=== PATIENT | male | born 1945 | race Caucasian/White ===

== ENCOUNTER 2017-03-10 16:45 | Emergency (ER) | payer MEDICARE, OTHER ==
[~2017-03-10] VITALS: Ht 167.6 cm; Wt 85.0 kg
[~2017-03-10 16:45] MED LIST: BACT800T5 PO; PERCOCET PO
[2017-03-10] MEDS ORDERED: ALEN70TA39 PO (16:59)
[2017-03-10] MEDS ORDERED: BREO1INH INH (16:59)
[2017-03-10] MEDS ORDERED: ATOR40TA75 PO (16:59)
[2017-03-10] MEDS ORDERED: ALBU17IN2 INH (16:59)
[2017-03-10] MEDS ORDERED: CARD240C5 PO (16:59)
[2017-03-10] MEDS ORDERED: AMLO10TA2 PO (16:59)
[2017-03-10] MEDS ORDERED: ASPI325T28 PO (16:59)
[2017-03-10] MEDS ORDERED: VITA-121 PO (16:59)
[2017-03-10] MEDS ORDERED: CALC600T31 PO (16:59)
[2017-03-10] MEDS ORDERED: IPRATROPIUM 0.5MG/ALBUTEROL 2.5MG INH SOL UD 3ML (DUONEB)(J7620) NEB ONE (17:15)
[2017-03-10 17:29] LABS: BASO # 0.1 K/mm3 (0.0-0.2); BASO % 0.8 % (0.0-1.0); EOS # 0.2 K/mm3 (0.0-0.50); EOS % 1.8 % (0.0-3.0); LARGE UNSTAINED CELL # 0.1 K/mm3 (0.0-0.4); LARGE UNSTAINED CELL % 1.7 % (0.0-4.0); LYMPH # 0.7 K/mm3 (1.5-4.5); LYMPH % 8.6 % (24.0-44.0); MEAN CORPUSCULAR HEMOGLOBIN 32.6 pg (27.0-33.0); MEAN CORPUSCULAR HGB CONC 34.5 g/dl (32.0-36.5); MEAN CORPUSCULAR VOLUME 94.5 fl (80.0-96.0); MONO # 0.5 K/mm3 (0.0-0.8); MONO % 6.1 % (0.0-5.0); NEUTROPHILS # 6.7 K/mm3 (1.8-7.7); NEUTROPHILS % 80.9 % (36.0-66.0); PLATELET COUNT, AUTOMATED 230 k/mm3 (150-450); RED CELL DISTRIBUTION WIDTH 13.4 % (11.5-14.5); WHITE BLOOD COUNT 8.3 K/mm3 (4.0-10.0)
[2017-03-10 17:40] LABS: ANION GAP 8 MEQ/L (8-16); BLOOD UREA NITROGEN 20 MG/DL (7-18); CALCIUM LEVEL 8.7 MG/DL (8.8-10.2); CARBON DIOXIDE LEVEL 25 MEQ/L (21-32); CHLORIDE LEVEL 112 MEQ/L (98-107); CREATININE FOR GFR 0.98 MG/DL (0.70-1.30); GLOMERULAR FILTRATION RATE > 60.0 (>42); GLUCOSE, FASTING 105 MG/DL (83-110); POTASSIUM SERUM 4.5 MEQ/L (3.5-5.1); SODIUM LEVEL 145 MEQ/L (136-145)
--- NOTE | 2017-03-10 17:44 | REP ---
Clinical: Altered mental status. Cerebrovascular accident. Comparison: MRI dated 03/12/2016 . Findings: Age-related atrophy and microvascular ischemic changes are appreciated. The ventricles and sulci are symmetric. Lopez-white differentiation is maintained. There is no evidence for acute intracranial hemorrhage, mass/mass effect, pathology or infarction. No extra-axial fluid collection. Calvarium is intact. Paranasal sinuses and mastoid air cells are clear. Impression: Age related atrophy and microvascular ischemic changes. No acute intracranial hemorrhage, infarction, or mass/mass effect. Signed by Elvin Amato MD 03/10/2017 05:35 P
--- NOTE | 2017-03-10 17:44 | REP ---
Clinical: Altered mental status. Cerebrovascular accident . Comparison: 02/27/2016 . Findings: The mediastinum and cardiac silhouette are stable and within normal limits for portable technique. The lung rice are clear without acute consolidation, effusion, or pneumothorax. Skeletal structures are intact. Impression: No acute cardiopulmonary process appreciated. Signed by Elvin Amato MD 03/10/2017 05:36 P
[2017-03-10 17:47] LABS: INR 0.87
[2017-03-10] MEDS ORDERED: ISOVUE-370 76% 100ML VIAL (Q9967) As Ordered ONE (17:53)
--- NOTE | 2017-03-10 18:33 | ECGEPIP ---
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
[2017-03-10] MEDS ORDERED: ONDANSETRON 4MG/2ML VIAL (J2405) IV ONE (19:00)
[2017-03-10] MEDS ORDERED: NS 500 ML IV ONE (19:00)
--- NOTE | 2017-03-10 19:10 | REPUSA ---
HISTORY: NO PRIORS - EVALUATE FOR POSTERIOR CIRCULATION, LEFT LEG CEREBELLAR DIFF. TECHNIQUE: CTA protocol of brain with intravenous contrast. DLP= 375.4 mGy-cm. FINDINGS: The examination demonstrates normal contrast patency of bilateral intracranial vertebral ar teries, basilar artery, bilateral posterior cerebral arteries, bilateral intracranial internal caroti d arteries, anterior cerebral arteries, middle cerebral arteries, and [place] vessels, with no evidence of vascular occlusion, stenosis, aneurysm, vasculitis, or arteriovenous malformation seen . There is no evidence of intracranial hemorrhage, mass lesion, or infarct seen. IMPRESSION: Negative CTA brain examination.
--- NOTE | 2017-03-10 19:20 | REPUSA ---
HISTORY: NO PRIORS - EVALUATE FOR POSTERIOR CIRCULATION, LEFT LEG CEREBELLAR DIFF. TECHNIQUE: CTA protocol for contrast enhanced evaluation of the carotid and vertebral arteries in the neck. DLP= 375.4 mGy-cm. FINDINGS: The examination demonstrates contrast opacification of the thoracic aortic arch and proxima l great vessels through the right and left common carotid arteries, internal and external carotid art eries, and bilateral vertebral arteries. There are multiple calcified plaques identified in all vasc ular structures, greatest at the left carotid bifurcation resulting in estimated 30-50% stenosis at t he origin of the left internal carotid artery, and also at the right carotid bifurcation with estimat ed 30% stenosis. No ulcerating plaque lesion is seen. There is no significant stenosis seen in the vertebral arteries. CT examination of the neck demonstrates normal airway. Degenerative bony changes are noted. No soft tissue mass lesions are seen. IMPRESSION: 1. No evidence of arterial vascular occlusion or aneurysm or arterial venous malformatio n seen in the neck. 2. Multiple calcified plaque lesions seen in carotid and vertebral arteries bilaterally and in the p roximal subclavian arteries. There is estimated 30-50% stenosis at the origin of the left internal c arotid artery and 30% stenosis at the origin of the right internal carotid artery, with no ulcerating plaque lesions id entified. There is no significant stenosis or occlusion seen in the vertebral or subclavian arteries . 3. Degenerative changes noted in the cervical spine with no soft tissue mass lesions or abnormal flu id collections seen in the neck. Clinical correlation and followup imaging may be warranted as clinically indicated.
[2017-03-10 19:58] VITALS: BP 163/76
== END 2017-03-10 20:00 | disposition short-term general hospital (02) ==
LOC: EDBD 16:45 → M ED 16:45
DX: R53.1 Weakness (principal); R11.0 Nausea; I25.2 Old myocardial infarction; J44.9 Chronic obstructive pulmonary disease, unspecified; I10 Essential (primary) hypertension; E78.00 Pure hypercholesterolemia, unspecified; Z85.528 Personal history of other malignant neoplasm of kidney
CPT/HCPCS: 70450; 70496; 70498; 71010; 80048; 82550; 82553; 84484; 85025; 85610; 85730; 86850; 86900; 86901; 93005; 93041; 94640; 94760; 96374; 99285; J2405; Q9967

== ENCOUNTER 2017-09-21 13:12 | Day surgery (SDC) | payer MEDICARE, OTHER ==
[2017-09-21] MEDS ORDERED: ALBUTEROL SULFATE 2.5 MG/0.5 ML INH NEB SOLN As Ordered (13:41)
[2017-09-21] MEDS: ALBUTEROL SULFATE 2.5 MG/0.5 ML INH NEB SOLN INH (14:00)
[2017-09-21] MEDS ORDERED: LIDOCAINE VISCOUS 2% SOLN 15ML UDC As Ordered (14:06)
[2017-09-21] MEDS ORDERED: ACETYLCYSTEINE 20% 30 ML VIAL As Ordered (14:06)
[2017-09-21] MEDS ORDERED: MIDAZOLAM INJ 2 MG/2 ML VIAL (J2250) As Ordered ×4 (14:11→14:29)
== END 2017-09-21 15:20 | disposition home or self-care (01) ==
LOC: M OPP 13:12
DX: I25.10 Atherosclerotic heart disease of native coronary artery without angina pectoris (principal); I25.2 Old myocardial infarction; I10 Essential (primary) hypertension; R94.31 Abnormal electrocardiogram [ECG] [EKG]; I63.9 Cerebral infarction, unspecified; Z88.8 Allergy status to other drugs, medicaments and biological substances; Z79.82 Long term (current) use of aspirin; Z79.899 Other long term (current) drug therapy
CPT/HCPCS: J2250

== ENCOUNTER → 2017-12-29 | Outpatient (CLI) | payer MEDICARE, OTHER ==
[2017-12-29 16:46] LABS: BASO # 0.1 10^3/uL (0.0-0.2); BASO % 0.8 % (0.0-1.0); EOS # 0.2 10^3/uL (0.0-0.50); EOS % 2.7 % (0.0-3.0); HEMATOCRIT 37.3 % (42.0-52.0); HEMOGLOBIN 12.7 g/dl (13.5-17.5); IMMATURE GRANULOCYTE % 0.8 % (0-3.0); LYMPH # 1.6 10^3/uL (1.5-4.5); LYMPH % 27.2 % (24.0-44.0); MEAN CORPUSCULAR HEMOGLOBIN 31.7 pg (27.0-33.0); MONO # 0.8 10^3/uL (0.0-0.8); MONO % 13.4 % (0.0-5.0); NEUTROPHILS # 3.2 10^3/uL (1.8-7.7); NEUTROPHILS % 55.1 % (36.0-66.0); PLATELET COUNT, AUTOMATED 266 10^3/uL (150-450); RED BLOOD COUNT 4.01 10^6/uL (4.30-6.10); RED CELL DISTRIBUTION WIDTH 12.9 % (11.5-14.5); WHITE BLOOD COUNT 5.9 10^3/uL (4.0-10.0)
[2017-12-29 17:01] LABS: ANION GAP 10 MEQ/L (8-16); BLOOD UREA NITROGEN 16 MG/DL (7-18); CALCIUM LEVEL 8.1 MG/DL (8.8-10.2); CARBON DIOXIDE LEVEL 27 MEQ/L (21-32); CHLORIDE LEVEL 103 MEQ/L (98-107); GLOMERULAR FILTRATION RATE > 60.0 (>42); GLUCOSE, FASTING 98 MG/DL (70-100); POTASSIUM SERUM 4.2 MEQ/L (3.5-5.1); SODIUM LEVEL 140 MEQ/L (136-145)
== END ==
LOC: M WUC 15:14
DX: Q21.1 Atrial septal defect (principal)
CPT/HCPCS: 80048

== ENCOUNTER → 2018-02-02 | Outpatient (CLI) | payer MEDICARE, OTHER | LOC: M WUC 17:10 | DX: M25.561 Pain in right knee (principal) | CPT/HCPCS: 73564 ==

== ENCOUNTER 2018-10-02 06:43 | Day surgery (SDC) | payer MEDICARE, OTHER ==
[~2018-10-02] VITALS: Ht 162.6 cm; Wt 77.6 kg
[~2018-10-02 06:43] MED LIST changes: +ALBU17IN2 INH; +ALEN70TA74 PO; +AMLO10TA5 PO; +ASPI-222 PO; +ATOR40TA75 PO; +BREO1INH INH; +CALC600T31 PO; +CARD240C5 PO; +NS 1,000 ML IV ONE; +VITA-121 PO
[2018-10-02] MEDS ORDERED: LIDOCAINE 2% INJ 100 MG/5 ML SDV (FOR ANES.) As Ordered ONE (07:11)
[2018-10-02] MEDS ORDERED: PROPOFOL 200 MG/20 ML VIAL As Ordered ONE ×2 (07:11→08:35)
--- NOTE | 2018-10-02 08:47 | ROOR ---
Patient Name: Phong Castro Procedure Date: 10/02/2018 8:01 AM Date of : 1945 Age: 73 Room: [facility] Gender: Male Note Status: Finalized Procedure: Total Colonoscopy to Cecum + Cold Snare Polypectomy + Hemoclips Indications: High risk colon cancer surveillance: Personal history of colonic polyps, Last colonoscopy: 2014 Providers: Bull Chcako MD Referring MD: VENTURA WALDROP MD Requesting Provider: Medicines: Monitored Anesthesia Care Complications: No immediate complications. Procedure: Pre-Anesthesia Assessment: - The heart rate, respiratory rate, oxygen saturations, blood pressure, adequacy of pulmonary ventilation, and response to care were monitored throughout the procedure. The Colonoscope was introduced through the anus and advanced to the cecum, identified by appendiceal orifice and ileocecal valve. The colonoscopy was performed without difficulty. The patient tolerated the procedure well. The quality of the bowel preparation was excellent. Findings: The perianal and digital rectal examinations were normal. Non-bleeding internal hemorrhoids were found during retroflexion. The hemorrhoids were small and Grade I (internal hemorrhoids that do not prolapse). Scattered small-mouthed diverticula were found in the recto-sigmoid colon, sigmoid colon and descending colon. A small polyp was found at 10 cm proximal to the anus. The polyp was sessile. The polyp was removed with a cold snare. Resection and retrieval were complete. To prevent bleeding after the polypectomy, one hemostatic clip was successfully placed (MR conditional). There was no bleeding at the end of the procedure. Multiple sessile polyps were found from 30 to 40 cm proximal to the anus. The polyps were medium in size. These polyps were removed with a cold snare. Resection and retrieval were complete. To prevent bleeding after the polypectomy, one hemostatic clip was successfully placed (MR conditional). There was no bleeding at the end of the procedure. Multiple sessile polyps were found in the transverse colon. The polyps were small in size. These polyps were removed with a cold snare. Resection and retrieval were complete. To prevent bleeding after the polypectomy, one hemostatic clip was successfully placed (MR conditional). There was no bleeding at the end of the procedure. The exam was otherwise without abnormality on direct and retroflexion views. Impression: - Non-bleeding internal hemorrhoids. - Diverticulosis in the recto-sigmoid colon, in the sigmoid colon and in the descending colon. - One small polyp at 10 cm proximal to the anus, removed with a cold snare. Resected and retrieved. Clip (MR conditional) was placed. - Multiple medium polyps from 30 to 40 cm proximal to the anus, removed with a cold snare. Resected and retrieved. Clip (MR conditional) was placed. - Multiple small polyps in the transverse colon, removed with a cold snare. Resected and retrieved. Clip (MR conditional) was placed. - The examination was otherwise normal on direct and retroflexion views. - The exam was otherwise normal to the cecum. Recommendation: - Patient has a contact number available for emergencies. The signs and symptoms of potential delayed complications were discussed with the patient. Return to normal activities tomorrow. Written discharge instructions were provided to the patient. - High fiber diet. - Discharge patient to home. - Continue present medications. - Await pathology results. - Telephone GI clinic for pathology results in 1 week. - Repeat colonoscopy in 3 years for surveillance based on pathology results. - Return to referring physician. - The findings and recommendations were discussed with the patient's family. Bull Chacko MD Bull Chacko MD 10/02/2018 8:47:28 AM Electronically signed by Bull Chacko MD Number of Addenda: 0 Note Initiated On: 10/02/2018 8:01 AM Estimated Blood Loss: Estimated blood loss: none.
[2018-10-02 09:00] VITALS: BP 132/74
== END 2018-10-02 09:13 | disposition home or self-care (01) ==
LOC: M OPP 06:43
PROVIDERS: ATTEND Internal Medicine Gastroenterology
DX: K64.0 First degree hemorrhoids (principal); K57.30 Diverticulosis of large intestine without perforation or abscess without bleeding; D12.3 Benign neoplasm of transverse colon; D12.6 Benign neoplasm of colon, unspecified; Z86.010 Personal history of colon polyps

== ENCOUNTER 2019-02-02 10:41 | Inpatient (IN) | payer MEDICARE, OTHER ==
[~2019-02-02] VITALS: Ht 165.1 cm; Wt 77.3 kg
[2019-02-02] VITALS (10 sets, daily range): BP systolic 147–177; BP diastolic 70–87
[~2019-02-02 10:41] MED LIST changes: -NS 1,000 ML IV ONE
[2019-02-02] MEDS ORDERED: MORPHINE 4 MG/ML 1ML VIAL/SYRINGE (J2270) IV PRN ×2 (11:00→13:30)
[2019-02-02] MEDS ORDERED: ONDANSETRON 4MG/2ML VIAL (J2405) IV ONE (11:00)
[2019-02-02 11:14] LABS: BASO # 0.1 10^3/uL (0.0-0.2); EOS # 0.1 10^3/uL (0.0-0.50); EOS % 1.5 % (0.0-3.0); HEMATOCRIT 43.5 % (42.0-52.0); HEMOGLOBIN 14.6 g/dl (13.5-17.5); LYMPH # 0.7 10^3/uL (1.5-4.5); LYMPH % 10.9 % (24.0-44.0); MEAN CORPUSCULAR HEMOGLOBIN 31.7 pg (27.0-33.0); MEAN CORPUSCULAR HGB CONC 33.6 g/dl (32.0-36.5); MEAN CORPUSCULAR VOLUME 94.6 fl (80.0-96.0); MONO # 0.6 10^3/uL (0.0-0.8); MONO % 9.1 % (0.0-5.0); NEUTROPHILS # 5.1 10^3/uL (1.8-7.7); NEUTROPHILS % 76.5 % (36.0-66.0); PLATELET COUNT, AUTOMATED 233 10^3/uL (150-450); WHITE BLOOD COUNT 6.7 10^3/uL (4.0-10.0)
[2019-02-02 11:30] LABS: INR 1.02; PROTHROMBIN TIME 13.1 SECONDS (11.8-14.0)
[2019-02-02] MEDS: NS 1,000 ML IV SCH ×3 (11:33→22:41)
--- NOTE | 2019-02-02 11:34 | REP ---
CT study of the cervical spine without contrast: History: Trauma. Comparison CT imaging is from June 11, 2011. Technique: Helical scanning is acquired and overlapping 2 mm high resolution axial images were generated and reviewed at bone and soft tissue window settings. Coronal and sagittal multiplanar re-formations images are generated. CT findings: There is no evidence of cervical spine element fracture. No skull base fracture is seen. Cervical vertebral body heights are preserved. Alignment is normal. Facet joints are normally aligned bilaterally at each cervical level on multiplanar re-formations images. There is no evidence of intraspinal or paraspinal hematoma. No extra vertebral abnormality is seen. There is degenerative spondylosis in the cervical spine with degenerative disc disease most pronounced at C3-4 C5-6. There is moderate osteoarthritic facet disease diffusely in the cervical spine. There is very slight old wedging at C7 and T1 unchanged. This is felt to be developmental. Many of and is unchanged from 2011. Prominent vascular calcification is noted in the carotid artery distribution. The lung apices are clear. Impression: Degenerative spondylosis changes stable from 2011. Otherwise negative CT study of the cervical spine without contrast. No fracture seen. Electronically Signed by Mesfin Nova MD 02/02/2019 11:26 A
--- NOTE | 2019-02-02 11:35 | REP ---
CT BRAIN WITHOUT CONTRAST: HISTORY: Trauma. FINDINGS: Preliminary digital superintendent electric power radiograph is unremarkable. Bone window settings demonstrate an intact bony calvarium. No skull fracture or significant scalp hematoma is appreciated. There is vascular calcification at the skull base bilaterally. No intraorbital abnormality is seen. The visualized paranasal sinuses are clear. There is no evidence of intracranial hemorrhage. There is mild diffuse cerebral atrophy. No infarct, mass, extra-axial fluid collection, or midline shift is seen. IMPRESSION: Mild diffuse atrophy and vascular calcification. No acute intracranial abnormality. Electronically Signed by Mesfin Nova MD 02/02/2019 03:42 P
--- NOTE | 2019-02-02 11:37 | REP ---
Clinical: Trauma. Technique: Axial noncontrast images from the lung bases to the pubic symphysis with coronal and sagittal re-formations. Comparison: 02/27/2016 Findings: Lung bases are clear. Liver, spleen, pancreas, gallbladder, and left adrenal gland are normal. Right adrenal gland demonstrates 1.1 cm stable benign adenoma. Right kidney is absent. Left kidney demonstrates few scattered hypo and isointense lesions suggesting simple and complex cysts. The enteric system is without obstruction or acute inflammatory process. Scattered colonic and sigmoid diverticula noted without acute diverticulitis. Pelvis demonstrates normal bladder. The prostate gland is mildly enlarged and measures 4.6 cm transverse diameter. No ascites. No free air. No adenopathy. Atherosclerotic changes of the aorta and vasculature noted. Fat containing supraumbilical hernia measures roughly 5 cm maximal diameter within the anterior abdominal wall defect of approximately 1.7 cm. Osseous structures demonstrate degenerative changes without focal abnormality or evidence for trauma/injury. Chronic compression deformity at T11. Impression: 1. No evidence for acute intra-abdominal or pelvic trauma/injury. 2. Stable chronic findings including right adrenal adenoma, sigmoid diverticulosis, mildly enlarged prostate gland, fat containing supraumbilical ventral hernia and chronic compression deformity at T11. 3. Hypo and isointense left renal lesions likely representing simple and complex cysts. Electronically Signed by Elvin Amato MD 02/02/2019 11:29 A
--- NOTE | 2019-02-02 11:40 | REP ---
Clinical: Trauma. Technique: Axial noncontrast images from the thoracic inlet to the upper abdomen with coronal and sagittal re-formations. Comparison: 12/25/2010. Findings: Bilateral lung rice are relatively symmetric, well aerated and essentially clear. No acute consolidation/contusion, effusion, or pneumothorax. Minimal chronic age-related interstitial changes are again noted. Tracheobronchial tree is patent. No obvious adenopathy. Atherosclerotic disease to the thoracic aorta and coronary arteries noted without aortic aneurysm or cardiomegaly. No pericardial effusion. Osseous structures are grossly intact without evidence for acute injury. Chronic compression deformity at T11 again noted. Impression: No acute mediastinal or pleuroparenchymal process. No evidence for acute trauma/injury. Electronically Signed by Elvin Amato MD 02/02/2019 11:32 A
[2019-02-02 11:42] LABS: ALBUMIN 3.6 GM/DL (3.2-5.2); BILIRUBIN,DIRECT 0.1 MG/DL (0.0-0.2); BILIRUBIN,TOTAL 0.3 MG/DL (0.2-1.0); TOTAL PROTEIN 6.5 GM/DL (6.4-8.2)
[2019-02-02] MEDS ORDERED: D-10TAB3 PO (11:44)
[2019-02-02] MEDS ORDERED: ALB2.5NEB INH (11:44)
[2019-02-02] MEDS ORDERED: CALC600T5 PO (11:44)
--- NOTE | 2019-02-02 11:46 | REP ---
Clinical: Trauma. Technique: Internal rotation, external rotation, and Y view of the right shoulder. Findings: Age-related osteopenia and mild generalized degenerative changes are appreciated. Suspected old healed rib fractures noted. Acromioclavicular and glenohumeral joints are intact without acute fracture dislocation. Subacromial space is normal. Surrounding soft tissues are grossly unremarkable. Impression: Age-related osteopenia and degenerative changes. No obvious acute shoulder fracture / dislocation or injury. Suspected old healed right rib fractures. Electronically Signed by Elvin Amato MD 02/02/2019 11:37 A
--- NOTE | 2019-02-02 11:47 | REP ---
Clinical: Trauma. Technique: AP and lateral views of the right tibia / fibula. Findings: Comminuted mildly displaced and posteriorly angulated fractures of the distal tibial and fibular diaphyses. Impression: Fractures of the distal tibial and fibular diaphyses. Electronically Signed by Elvin Amato MD 02/02/2019 11:39 A
[2019-02-02] MEDS: HYDROMORPHONE HCL 0.5 MG/ 0.5 ML SYRINGE (J1170 PER 1) IV PRN ×4 (12:10→19:44)
[2019-02-02] MEDS ORDERED: ALBUTEROL SULFATE 2.5 MG/0.5 ML INH NEB SOLN INH PRN (13:30)
[2019-02-02] MEDS: IPRATROPIUM 0.5MG/ALBUTEROL 2.5MG INH SOL UD 3ML (DUONEB)(J7620) NEB SCH ×2 (14:00→19:39)
[2019-02-02] MEDS ORDERED: HYDROMORPHONE HCL 0.5 MG/ 0.5 ML SYRINGE (J1170 PER 1) IV PRN (14:15)
--- NOTE | 2019-02-02 14:44 | HPEPDOC ---
General Date of Admission Feb 02, 2019 at 13:27 Date of Service: Feb 02, 2019 Other Providers PCP: Jose Quintero Attending Physician: ARNAUD EDEN DO Chief Complaint The patient is a 73-year-old male admitted with a reason for visit of Tibia Fracture. Source: Patient Exam Limitations: No limitations Timing/Duration: 4-6 hours Severity: Severe Associated Symptoms: Mechanical fall, Other (leg pain) History of Present Illness 73 yo male was working on barn roof when he slipped and landed on his buttock but felt intense right leg pain. The then slid off roof but no loss of consciousness or head injury. He was brought to ED and found to have tib/fib fracture. Ortho (Dr Rea) was contacted and will evaluate patient for surgical intervention Currently patient states no pain relief with 4mg morphine but sufficient pain relief with dilaudid x 2. no CP, no SOB, no N, no V, no fever, no NOEL Home Medications Scheduled Alendronate Sodium (Alendronate Sodium) 70 Mg Tab, 70 MG PO QWEEK, (Reported) SUNDAYS Amlodipine Besylate (Amlodipine Besylate) 10 Mg Tab, 10 MG PO DAILY, (Reported) Aspirin (Aspirin EC) 325 Mg Tab, 325 MG PO DAILY, (Reported) Atorvastatin Calcium (Atorvastatin Calcium) 40 Mg Tab, 40 MG PO QHS, (Reported) Calcium Carbonate (Calcium) 600 Mg Tablet, 600 MG PO DAILY, (Reported) Cholecalciferol (Vitamin D3) (Vitamin D3) 1,000 Unit Tablet, 1,000 UNIT PO DAILY, (Reported) Diltiazem Hcl (Cardizem Cd) 240 Mg Cap, 240 MG PO QHS, (Reported) Fluticasone/Vilanterol (Breo Ellipta 100-25 Mcg INH) 1 Inh Inh, 1 PUFF INH DAILY, (Reported) Scheduled PRN Albuterol Sulfate (Proventil Hfa) 108 Mcg/Act Aer, 2 PUFFS INH Q4H PRN for SOB/WHEEZING, (Reported) Albuterol Sulfate (Albuterol Sulfate) 2.5 Mg/0.5 Ml Vial.neb, 2.5 MG INH Q6H PRN for SHORTNESS OF BREATH, (Reported) Allergies Coded Allergies: clopidogrel (Unverified Allergy, Severe, DIFFICULTY BREATHING, 10/02/18) lisinopril (Unverified Allergy, Severe, ANAPHYLAXIS, 10/02/18) Past Medical History Medical History 1. Patent foramen ovale - closure in 01/2018 2. Extensive (severe) complex atheroma involving the distal aortic arch and descending thoracic aorta with multiple areas of mobile plaque. 3. Intra-atrial septal aneurysm seen on echo 2017 4. HTN 5. HYPERLIPIDEMIA 6. Kidney cancer with right nephrectomy 7. 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 right adrenal adenoma 10 diverticulosis 11 BPH 12 Chronic vertebral compression deformity T11 13 left renal cysts (seen on CT Scan 01/2019) 14 COPD Past surgical history: Right nephrectomy hernia repair right orchectxomy (benign) back surgery x 2 (30 years ago) PFO closure 01/2018 Social history: quit tobacco use 2017, occasional beer use; Family history: parents with heart disease () A-FIB/CHADSVASC A-FIB History Current/History of A-Fib/PAF?: No Review of Systems Musculoskeletal: Reports: Shoulder Pain (right), Leg Pain (right tib/rib fracture) Other systems 10 systems reviewed and negative except as per HPI Physical Examination General Exam: Positive: Alert, Cooperative, Mild Distress (after receiving morphine and dilaudid x2) Eye Exam: Positive: PERRLA, Conjunctiva & lids normal, EOMI ENT Exam: Positive: Atraumatic, Mucous membr. moist/pink, Pharynx Normal Neck Exam: Positive: Supple, +2 carotid pulse wo bruit Chest Exam: Positive: Clear to auscultation, Normal air movement, Wheezing Heart Exam: Positive: Rate Normal, Regular Rhythm, Normal S1, Normal S2 Telemetry: Positive: No significant arrhythmia, Sinus Abdomen Exam: Positive: Normal bowel sounds, Soft (NT ND, large reducible um bilical hernia present) Extremity Exam: Positive: Normal pulses, Tenderness (right leg (splint intact for fracture stabilization). ); Negative: Clubbing, Cyanosis, Edema Skin Exam: Positive: Nl turgor and temperature (no rash) Neuro Exam: Positive: Normal Speech, Normal Tone, Sensation Intact, Cranial Nerves 3-12 NL Psych Exam: Positive: Mental status NL, Mood NL, Oriented x 3 Other physical findings ER IMAGES: CT ABD/PEL: 1. No evidence for acute intra-abdominal or pelvic trauma/injury. 2. Stable chronic findings including right adrenal adenoma, sigmoid diverticulosis, mildly enlarged prostate gland, fat containing supraumbilical ventral hernia and chronic compression deformity at T11. 3. Hypo and isointense left renal lesions likely representing simple and complex cysts. CT CHEST:Impression: No acute mediastinal or pleuroparenchymal process. No evidence for acute trauma/injury. CT NECK: Degenerative spondylosis changes stable from 2010. Otherwise negative CT study of the cervical spine without contrast. No fracture seen. CT HEAD: IMPRESSION: Mild diffuse atrophy and vascular calcification. No acute intracranial abnormality. RIGHT SHOULDER xray: (images reviewed) Impression: Age-related osteopenia and degenerative changes. No obvious acute shoulder fracture / dislocation or injury. Suspected old healed right rib fractures. Right leg xray:(images reviewed) Comminuted mildly displaced and posteriorly angulated fractures of the distal tibial and fibular diaphyses. Vital Signs Vital Signs Date Time Temp Pulse Resp B/P (MAP) Pulse Ox O2 Delivery O2 Flow Rate FiO2 02/02/19 14:00 78 126/75 (92) 91 02/02/19 13:58 16 02/02/19 10:54 98.1 02/02/19 10:45 Room Air Laboratory Data Labs 24H Laboratory Tests 2 02/02/19 10:59: Immature Granulocyte % (Auto) 1.0, White Blood Count 6.7, Red Blood Count 4.60, Hemoglobin 14.6, Hematocrit 43.5, Mean Corpuscular Volume 94.6, Mean Corpuscular Hemoglobin 31.7, Mean Corpuscular Hemoglobin Concent 33.6, Red Cell Distribution Width 13.0, Platelet Count 233, Neutrophils (%) (Auto) 76.5H, Lymphocytes (%) (Auto) 10.9L, Monocytes (%) (Auto) 9.1H, Eosinophils (%) (Auto) 1.5, Basophils (%) (Auto) 1.0, Neutrophils # (Auto) 5.1, Lymphocytes # (Auto) 0.7L, Monocytes # (Auto) 0.6, Eosinophils # (Auto) 0.1, Basophils # (Auto) 0.1, Nucleated Red Blood Cells % (auto) 0.0, Prothrombin Time 13.1, Prothromb Time International Ratio 1.02, Aspartate Amino Transf (AST/SGOT) 21, Alanine Aminotransferase (ALT/SGPT) 35, Alkaline Phosphatase 68, Total Bilirubin 0.3, Direct Bilirubin 0.1, Total Protein 6.5, Albumin 3.6, Albumin/Globulin Ratio 1.24, Amylase Level 76, Lipase 224 02/02/19 11:02: POC Glucose (Misc Panel) 100, POC Sodium (Misc Panel) 139, POC Potassium (Misc Panel) 4.4, POC Chloride (Misc Panel) 105, POC Total CO2 (Misc Panel) 24.0, POC Blood Urea Nitrogen (Misc Panel 12, POC Ionized Calcium (Misc Panel) 5.0, POC Creatinine (Misc Panel) 1.1, POC Hematocrit (Misc Panel) 42.0 CBC/BMP Laboratory Tests 02/02/19 10:59 Red Blood Count 4.60, Mean Corpuscular Volume 94.6, Mean Corpuscular Hemoglobin 31.7, Mean Corpuscular Hemoglobin Concent 33.6, Red Cell Distribution Width 13.0, Neutrophils (%) (Auto) 76.5 H, Lymphocytes (%) (Auto) 10.9 L, Monocytes (%) (Auto) 9.1 H, Eosinophils (%) (Auto) 1.5, Basophils (%) (Auto) 1.0, Neutrophils # (Auto) 5.1, Lymphocytes # (Auto) 0.7 L, Monocytes # (Auto) 0.6, Eosinophils # (Auto) 0.1, Basophils # (Auto) 0.1 Echocardiogram EKG 02/02/19: NSR 78 bpm Assessment/Plan 1) tib/fib fracture: NPO, consult ortho, prn dilaudid for pain 2) COPD with active wheezing. no exacerbation, no hypoxia - scheduled nebs, inhaled steroids. IS PEP post op 3) HTN - continue home regimen and monitor 4) History of CVA - on ASA prophylaxis - hold until surgery, then resume DVT Prophylaxis: none as patient with leg fracture (unable to use SCD) and anticipating surgery (no hep or lovenox) CODE: FULL Plan / VTE VTE Prophylaxis Ordered?: ARNAUD Adhikari DO Feb 02, 2019 14:44
[2019-02-02] MEDS: BUDESONIDE 0.5 MG/2 ML INHALATION SUSPENSION INH SCH ×2 (14:45→19:39)
--- NOTE | 2019-02-02 17:17 | HPE ---
DATE OF ADMISSION: 02/02/2019 CHIEF COMPLAINT: Right distal tibia and fibula fracture. HISTORY OF PRESENT ILLNESS: This 73-year-old man was working up on a room about 5 feet up. He feels like he twisted his right leg and fell off the roof. He has never had any problems with fracture before in his right ankle, foot or lower leg, but he apparently did have a stroke in the past and was left with some left arm and right leg weakness, this was about a year ago. He presented to the emergency room at [facility] and I was called to consult on this case. This happened at 10:00 a.m. this morning, approximately. He is nothing by mouth. PAST MEDICAL HISTORY: Includes hypertension, stroke with left arm and right leg weakness about a year ago, silent myocardial infarction 30 years ago. MEDICATIONS: - amlodipine - vitamin D - atorvastatin - diltiazem - Pulmicort - as needed albuterol DRUG ALLERGIES: CLOPIDOGREL, LISINOPRIL PAST SURGICAL HISTORY: Endoscopy and polypectomy. SOCIAL HISTORY: He is here with his daughter. He has brothers and sisters. He lives alone. [place] He is a nonsmoker. PHYSICAL EXAMINATION: 73-year-old man. He looks his stated age. He is here with his daughter. Temperature 98.0, blood pressure 153/70, pulse rate 75, respiratory rate 16, 91% on room air. Inspection of his lower extremities reveal moderate swelling of the right lower extremity throughout the tibia and ankle. There is already early fracture blisters forming on the anterior aspect of the ankle. This is a closed injury. He has normal sensation throughout the superficial deep peroneal nerves, as well as saphenous and tibial. Good pedal pulses, especially dorsalis pedis is nice and strong, well-perfused. He is able to wiggle his toes, dorsiflex and plantar flex the foot. No pain of the knee. Compartments are otherwise soft despite the swelling. RADIOGRAPHIC: AP lateral of the tibia-fibula, both proximally and distally, revealed a distal third spiral, what appears to be potentially partial articular fracture of the tibia. On one view it does appear to be entering the joint, although the joint appears nondisplaced. There is also a fracture of the distal fibula, both levels, syndesmosis. The mortise appears non widened. There is some mild to moderate comminution and moderate soft tissue swelling. Laboratory examination reveals hemoglobin of 14.6. Coagulation: PT 13.1, INR 1.02. ASSESSMENT/PLAN: 73-year-old man with a distal tibia and fibula fracture. We talked about pros, cons, risks and benefits of external fixator application, followed by definitive surgery with open reduction and internal fixation with plating of both bones versus IM nail with plating of the fibula potentially. We will book him for external fixator application sometimes tonight or early tomorrow morning depending on the OR availability. We will keep him n.p.o. We will start anticoagulation for VTE prophylaxis after the external fixator is applied. I have asked the medical reimbursement specialist to admit this man to help in his medical management. I went ahead and marked his right lower extremity. I talked to him and his daughter about the external fixator application and we will sign the consent form immediately prior to the surgery. We will let the OR know to book the case as well.
[2019-02-02] MEDS ORDERED: diazePAM 2 MG TAB PO PRN (19:45)
[2019-02-02] MEDS: ATORVASTATIN 20 MG TAB PO SCH (20:55)
--- NOTE | 2019-02-02 22:28 | ECGEPIP ---
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
[2019-02-02] MEDS: PERCOCET 5MG/325MG TAB PO PRN (22:41)
[2019-02-02] MEDS ORDERED: CALCIUM CARBONATE 500 MG CHEW U/D PO ONE (23:15)
[2019-02-03] MEDS: ONDANSETRON 4MG/2ML VIAL (J2405) IV PRN (01:11)
[2019-02-03] MEDS: IPRATROPIUM 0.5MG/ALBUTEROL 2.5MG INH SOL UD 3ML (DUONEB)(J7620) NEB SCH ×5 (01:29→23:52)
[2019-02-03] MEDS: NS 1,000 ML IV SCH ×3 (04:50→20:20)
[2019-02-03 06:01] VITALS: BP 92/58
[2019-02-03 06:18] LABS: HEMATOCRIT 39.1 % (42.0-52.0); HEMOGLOBIN 12.9 g/dl (13.5-17.5); PLATELET COUNT, AUTOMATED 220 10^3/uL (150-450); RED BLOOD COUNT 4.16 10^6/uL (4.30-6.10); WHITE BLOOD COUNT 7.3 10^3/uL (4.0-10.0)
[2019-02-03] MEDS ORDERED: PANTOPRAZOLE 40MG INJ (PROTONIX) (C9113) IV ONE (06:30)
[2019-02-03 06:40] LABS: BLOOD UREA NITROGEN 11 MG/DL (7-18); CARBON DIOXIDE LEVEL 28 MEQ/L (21-32); CHLORIDE LEVEL 108 MEQ/L (98-107); CREATININE FOR GFR 1.02 MG/DL (0.70-1.30); GLOMERULAR FILTRATION RATE > 60.0 (>42); GLUCOSE, FASTING 126 MG/DL (70-100); POTASSIUM SERUM 3.7 MEQ/L (3.5-5.1); SODIUM LEVEL 140 MEQ/L (136-145)
[2019-02-03] MEDS: BUDESONIDE 0.5 MG/2 ML INHALATION SUSPENSION INH SCH ×2 (07:16→18:09)
[2019-02-03 09:00] VITALS: BP 149/80
[2019-02-03] MEDS: VITAMIN D 1,000 INTERNATIONAL UNITS TABLET PO SCH (09:00)
[2019-02-03] MEDS: amLODIPine 10 MG TAB PO SCH (09:00)
[2019-02-03] MEDS: HEPARIN SOD (PORCINE) 5000 UNITS/ML VIAL SC SCH ×2 (09:00→20:54)
--- NOTE | 2019-02-03 09:17 | IPN ---
DATE: 02/03/2019 CHIEF COMPLAINT: Post admission day 1, right distal tibia and fibula fracture. HISTORY OF PRESENT ILLNESS: This 73-year-old man, unfortunate fell off a roof. He sustained a displaced, quite swollen right distal tibia-fibula fracture. We talked about pros, cons, risks, benefits of nonoperative versus delayed fixation with external fixator application or immediate surgery. I prefer to place an external fixator. Unfortunately, the operating room (OR) was not available last night, so we are trying to get this done this morning. 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 He had a little bit of a rough night it sounds like with some emesis following oral narcotic administration. This seems to be settling down at the present time. He is a little bit anxious at baseline. PHYSICAL EXAM: 73-year-old man. He is in no acute distress. He is comfortable. He is able to wiggle his toes, dorsiflex, plantarflex the foot. The lower extremity compartments appear soft, but moderately swollen distally. He has normal sensation over the plantar aspect of his foot, but slightly diminished in the dorsum. Vital signs: Temperature 98.8. Blood pressure 92/58, pulse rate 95. Resp rate 20, 93% on room air. Laboratory examination from this morning reveals hemoglobin 12.9. ASSESSMENT/PLAN: I obtained consent this morning for external fixator application right lower extremity. I showed him a picture. We talked about the pros, cons, risks and benefits of nonoperative versus immediate external fixator application. I think that this will help control his pain. I warned him as to the specific surgical risks, including but not limited to, infection slightly increased due to the pin sites, as well as, pain, stiffness, bleeding, neurovascular injury, soft tissue complications, soft tissue breakdown, skin slough, stiffness, as well as anesthetic complications, passing away or dying. We signed consent form for that as well as possible need for blood products. We will go ahead and try to get this done, again, in the emergency slate list this morning, and to put on the external fixator to allow the soft tissue swelling to go down and to perform a delayed open reduction internal fixation.
[2019-02-03] MEDS: PERCOCET 5MG/325MG TAB PO PRN ×3 (09:23→18:05)
--- NOTE | 2019-02-03 11:57 | IPNPDOC ---
Text Note Date of Service The patient was seen on 02/03/19. NOTE S: pateint states pain controlled with oxycodone and awaiting surgery today. He is requesting a naval marine engineer visit during this hospitalization. He states no wheeze, no SOB, no cough, no CP, no N, no V. During night patient had hypoxia and confusion associated with dilaudid and medication changed to oxycodone. Delerium and hypoxia has resolved. O: Vitals as below General: pleasant NAD AAOx3 HRRR LCTA no W/R/R (improved from yesterday) Ext: right splint intact; left no edema A/P: 1) tib/fib fracture: NPO, consult /management per ortho, oxycodone for pain; (patient had hypoxia and confusion with repeat dilaudid dosing). 2) COPD no exacerbation, no hypoxia - scheduled nebs, inhaled steroids. IS PEP post op. no need for IV steroids. 3) HTN - continue home regimen and monitor 4) History of CVA - on ASA prophylaxis - hold until surgery, then resume DVT Prophylaxis: none as patient with leg fracture (unable to use SCD) and anticipating surgery (no hep or lovenox until post op as per othro recommendations) CODE: FULL VS,Fishbone, I+O VS, Fishbone, I+O Laboratory Tests 02/03/19 05:51 Red Blood Count 4.16 L, Mean Corpuscular Volume 94.0, Mean Corpuscular Hemoglobin 31.0, Mean Corpuscular Hemoglobin Concent 33.0, Red Cell Distribution Width 13.2, Calcium Level 8.0 L Vital Signs Date Time Temp Pulse Resp B/P (MAP) Pulse Ox O2 Delivery O2 Flow Rate FiO2 02/03/19 09:23 18 02/03/19 09:00 149/80 (103) 02/03/19 06:01 98.8 95 93 02/03/19 06:00 2.0 02/02/19 14:45 Room Air I&O- Last 24 Hours up to 6 AM 02/03/19 06:00 Intake Total 3480 ml Output Total 1500 ml Balance 1980 ml ARNAUD EDEN DO Feb 03, 2019 11:57
[2019-02-03 14:00] VITALS: BP 132/65
[2019-02-03 19:54] VITALS: BP 139/67
[2019-02-03] MEDS: ATORVASTATIN 20 MG TAB PO SCH (19:57)
[2019-02-03] MEDS ORDERED: PROPOFOL 200 MG/20 ML VIAL As Ordered ONE (20:03)
[2019-02-03] MEDS ORDERED: ROCURONIUM BROMIDE 50 MG/5 ML VIAL As Ordered ONE (20:03)
[2019-02-03] MEDS ORDERED: LIDOCAINE 2% INJ 100 MG/5 ML SDV (FOR ANES.) As Ordered ONE (20:03)
[2019-02-03] MEDS ORDERED: dexameTHASONE 4 MG/ML 1ML VIAL (J1100) As Ordered ONE (20:04)
[2019-02-03] MEDS ORDERED: ONDANSETRON 4MG/2ML VIAL (J2405) As Ordered ONE (20:04)
[2019-02-03] MEDS ORDERED: fentaNYL 100 MCG/2 ML INJECTION (J3010) As Ordered ONE (20:05)
[2019-02-03] MEDS ORDERED: MIDAZOLAM INJ 2 MG/2 ML VIAL (J2250) As Ordered ONE (20:05)
[2019-02-03] MEDS ORDERED: ACETAMINOPHEN 1000MG 100ML IV BTL (OFIRMEV) (J0131 PER 10MG) As Ordered ONE (20:59)
[2019-02-03] MEDS ORDERED: ceFAZolin 2 GM/D5W 50 ML IV BAG (J0690 PER 500MG) As Ordered ONE (21:09)
[2019-02-03] MEDS ORDERED: fentaNYL 100 MCG/2 ML INJECTION (J3010) IV PRN (22:30)
[2019-02-03] MEDS ORDERED: ONDANSETRON 4MG/2ML VIAL (J2405) IV PRN (22:30)
[2019-02-03] MEDS ORDERED: oxyCODONE 5MG TAB PO PRN (22:30)
[2019-02-03] MEDS ORDERED: LR 1,000 ML IV SCH (22:30)
[2019-02-03 23:03] VITALS: BP 141/58
[2019-02-03 23:59] VITALS: BP 140/58
[2019-02-04] VITALS (10 sets, daily range): BP systolic 101–155; BP diastolic 53–75; O2SAT 91
[2019-02-04] MEDS: BUDESONIDE 0.5 MG/2 ML INHALATION SUSPENSION INH SCH ×2 (07:16→19:25)
[2019-02-04] MEDS: IPRATROPIUM 0.5MG/ALBUTEROL 2.5MG INH SOL UD 3ML (DUONEB)(J7620) NEB SCH ×4 (07:16→19:25)
--- NOTE | 2019-02-04 08:32 | REP ---
Clinical: Fracture. Technique: Single fluoroscopic AP view using portable C-arm technique. Findings: Fractures of the distal tibial and fibular metadiaphysis noted. Total fluoroscopic time 37 seconds. Impression: Tibial and fibular fractures. Electronically Signed by Elvin Amato MD 02/04/2019 08:24 A
[2019-02-04] MEDS: MOM 30ML SUSPENSION UDC PO SCH (08:57)
[2019-02-04] MEDS: MIRALAX *UNIT DOSE* 17GM PACKET PO SCH (08:57)
[2019-02-04] MEDS: MAALOX 30 ML SUSP *UDC PO PRN ×2 (08:57→22:12)
[2019-02-04] MEDS: SENOKOT S TAB PO SCH ×2 (08:58→20:46)
[2019-02-04] MEDS: amLODIPine 10 MG TAB PO SCH (08:58)
[2019-02-04] MEDS: PERCOCET 5MG/325MG TAB PO PRN ×3 (08:58→18:31)
[2019-02-04] MEDS: VITAMIN D 1,000 INTERNATIONAL UNITS TABLET PO SCH (08:58)
--- NOTE | 2019-02-04 09:00 | RO ---
DATE OF PROCEDURE: 02/03/2019 PREOPERATIVE DIAGNOSIS: Right tibia and fibula fracture. POSTOPERATIVE DIAGNOSIS: Right tibia and fibula fracture. PLANNED PROCEDURE: Right lower extremity external fixator application. PROCEDURE PERFORMED: Right lower extremity external fixator application. SURGEON: Jose Arevalo MD FINANCE CLERK: Dr. Borrego ANESTHESIA: General anesthetic. OPERATIVE PREAMBLE: This 73-year-old man fell off a roof. He sustained a spiral distal third tibia-fibula fracture. He had a moderate amount of swelling precluding plating of the fibula and/or plating or nailing of the tibia. Due to concern as well for his age and possible intra-articular extension of the fragment, I thought it best practice to perform an external fixator application, followed by CT scan of the ankle in preparation for delayed definitive surgery. We talked about pros, cons, risks and benefits going ahead with this and signed the consent form. I marked the right lower extremity. We proceeded with surgery. OPERATIVE REPORT: The patient is brought to the operating theater. He was placed supine on the radiolucent table. 2 grams of IV Ancef was administered. General anesthesia was induced. The leg was propped up on a bone foam leg positioner to elevated it slightly on the table and flex the hip and knee. A bump was placed on the right hip. The limb was prepped and draped in the usual sterile fashion. I began by using percutaneous technique to insert the two proximal self-drilling, self-tapping pins for the external fixator. I inserted these collinear. I attached a pin-pin connector to these and tightened it down. Next, I took AP and lateral radiographs to confirm proper pin placement just off the medial crest of the tibia and passed the far cortex, but not penetrating too far. Next, I turned my attention distally. I took AP lateral radiographs to confirm start point for Dione pin through the calcaneus. I placed this through the calcaneal tuberosity. I tried to stay well away from the posterior tibialis vessels. I passed this parallel to the tibia on the AP radiograph and in the calcaneal tuberosity and lateral radiographs. Next, I assembled an A frame using bar-bar connectors from the proximal two pins down distally to the [place] pin. I also assembled a crossbar across the two bars making an A frame. I then loosened the proximal bar-bar connectors and applied longitudinal traction and slight internal rotation on the foot and pins. I confirmed proper longitudinal orientation and length of the tibia and fibula fractures, ankle reduced anatomic. There is no obvious splits or gaps of the joint as was seen preoperatively on one of the radiographs. Bar-bar and pin bar connectors were all tightened down in appropriate position. Wounds were thoroughly irrigated. Xeroform followed by sterile gauze and sterile Sri was overwrapped over the pin sites, pin sites protected as well with caps. Drapes were taken down. Patient was transferred off the operating table and taken the postanesthesia care unit in stable condition. All sponge, needle, and instrument counts were correct. No complications. Estimated blood loss 15 mL. Plan for the patient is to obtain CT of the ankle to rule out intra-articular fracture and elevate the ankle while admitted to the hospital awaiting definitive open reduction internal fixation. CAMILO
--- NOTE | 2019-02-04 09:47 | IPNPDOC ---
Text Note Date of Service The patient was seen on 02/04/19. NOTE S: pateint states increased indigestion and acid reflux - worse with drinking coffee and orange juice. no CP, no SOB. states wheezing at home and uses nebulatizer frequently. Patient states minimal pain after external fixator placed to fractured tib/fib O: Vitals as below General: pleasant, NAD AAOX3 HRRR LCTA with scattered wheeze, no rales, no rhonchi Ext: right external fixation inplace. A/P: 1) tib/fib fracture: consult /management per ortho, oxycodone for pain; (patient had hypoxia and confusion with repeat dilaudid dosing). xarelto started 2) COPD no exacerbation, intermittent hypoxia (currently on RA). may have JEMIMA component which needs to be evaluated as outpatient. Will increased scheduled nebs to q4 and prn to q1h. continue inhaled steroids BID. IS PEP post op. no need for IV steroids. (avoid steroid IV or po if possible due to possible delay healing from fracture) 3) HTN - continue home regimen and monitor 4) History of CVA - ASA on hold. continue with xarelto 5) GERD - temp relief with mylanta -. will add pepcid and carafate DVT Prophylaxis: xarelto 10mg daily CODE: FULL Current Medications Medications (Trade) Dose Ordered Sig/Lacey Route PRN Reason Start Time Stop Time Status Last Admin Dose Admin Al Hydrox/Mg Hydrox/Simethicone (Mylanta) 30 ml Q4HP PRN PO HEARTBURN 02/04/19 08:45 02/04/19 08:57 Albuterol Sulfate (Proventil Neb) 2.5 mg Q1H PRN INH SHORTNESS OF BREATH 02/04/19 09:45 UNV Albuterol Sulfate (Proventil Neb) 2.5 mg Q6H PRN INH SHORTNESS OF BREATH 02/02/19 13:30 02/04/19 09:38 DC 02/02/19 15:50 Albuterol/ Ipratropium (Duoneb (Ipr 0.5mg/Alb 2.5mg)) 3 ml RQ4H NEB 02/04/19 12:00 UNV Albuterol/ Ipratropium (Duoneb (Ipr 0.5mg/Alb 2.5mg)) 3 ml RQ6H NEB 02/02/19 14:00 02/04/19 09:38 DC 02/04/19 07:16 Amlodipine Besylate (Norvasc) 10 mg DAILY PO 02/03/19 09:00 02/04/19 08:58 Atorvastatin Calcium (Lipitor) 40 mg QHS PO 02/02/19 21:00 02/03/19 19:57 Budesonide (Pulmicort) 0.5 mg RBID INH 02/02/19 14:45 02/04/19 07:16 Cefazolin Sodium/ Dextrose 2 gm/IV Miscellaneous Supplies 50 ml @ 75 mls/hr ASDIRECTED IV 02/03/19 06:00 02/03/19 23:44 DC Cefazolin Sodium/ Dextrose 2 gm/IV Miscellaneous Supplies 50 ml @ 75 mls/hr Q8H IV 02/04/19 05:00 02/04/19 13:39 02/04/19 05:14 Diazepam (Valium) 2 mg Q4HP PRN PO ANXIETY 02/02/19 19:45 02/02/19 20:56 Diltiazem HCl (Cardizem Cd) 240 mg QHS PO 02/02/19 21:00 02/03/19 19:57 Fentanyl Citrate (Sublimaze) 25 mcg Q5MP PRN IV MODERATE PAIN (PS 4-7) 02/03/19 22:30 02/03/19 23:29 DC Heparin Sodium (Porcine) (Heparin) 5,000 units BID SC 02/03/19 09:00 02/04/19 08:03 DC Home Med (Med Rec Complete!) ASDIRECTED XX 02/02/19 11:45 02/02/19 11:45 DC Hydromorphone HCl (Dilaudid) 0.2 mg Q3HP PRN IV MILD PAIN (PS 1-4) 02/02/19 14:15 02/03/19 06:20 DC Hydromorphone HCl (Dilaudid) 0.4 mg Q3HP PRN IV MODERATE PAIN (PS 5-7) 02/02/19 14:15 02/03/19 06:20 DC 02/02/19 19:44 Hydromorphone HCl (Dilaudid) 0.5 mg Q30M PRN IV MODERATE PAIN (PS 5-7) 02/02/19 12:15 02/02/19 13:38 DC 02/02/19 13:38 Lactated Ringer's 1,000 ml @ 100 mls/hr Q10H IV 02/03/19 22:30 02/03/19 23:29 DC Magnesium Hydroxide (Milk Of Magnesia) 30 ml DAILY PO 02/04/19 09:00 02/04/19 08:57 Morphine Sulfate (Morphine Sulfate Inj) 4 mg Q2H PRN IV severe pain 02/02/19 13:30 02/02/19 14:17 DC Morphine Sulfate (Morphine Sulfate Inj) 4 mg Q30M PRN IV SEVERE PAIN (PS 8-10) 02/02/19 11:00 02/02/19 14:17 DC 02/02/19 11:33 Ondansetron HCl (ZOFRAN INJection) 4 mg Q4HP PRN IV NAUSEA OR VOMITING 02/02/19 14:15 02/03/19 01:11 Ondansetron HCl (ZOFRAN INJection) 4 mg Q4HP PRN IV NAUSEA OR VOMITING 02/03/19 22:30 02/03/19 23:29 DC Oxycodone HCl (Roxicodone, Oxyir) 5 mg ASDIRECTED PRN PO MILD/MODERATE PAIN (PS 1-7) 02/03/19 22:30 02/03/19 23:29 DC Oxycodone/ Acetaminophen (Percocet 5mg/ 325mg Tablet) 1 tab Q4HP PRN PO MILD/MODERATE PAIN (PS 1-7) 02/04/19 06:15 02/04/19 08:58 Oxycodone/ Acetaminophen (Percocet 5mg/ 325mg Tablet) 2 tab Q4HP PRN PO PAIN 02/02/19 21:45 02/03/19 18:05 Polyethylene Glycol (Miralax) 1 pkt DAILY PO 02/04/19 09:00 02/04/19 08:57 Rivaroxaban (Xarelto) 10 mg DAILY@18 PO 02/04/19 18:00 03/03/19 17:59 Senna/Docusate Sodium (Senokot S) 1 tab BID PO 02/04/19 09:00 02/04/19 08:58 Sodium Chloride 1,000 ml @ 150 mls/hr Q6H40M IV 02/02/19 11:00 02/03/19 23:42 DC 02/03/19 18:11 Vitamin D (Vitamin D) 1,000 units DAILY PO 02/03/19 09:00 02/04/19 08:58 VS,Fishbone, I+O VS, Fishbone, I+O Vital Signs Date Time Temp Pulse Resp B/P (MAP) Pulse Ox O2 Delivery O2 Flow Rate FiO2 02/04/19 08:58 18 02/04/19 08:58 81 152/71 02/04/19 07:28 Venturi Mask 6.0 28 02/04/19 06:58 91 02/04/19 03:33 98.1 I&O- Last 24 Hours up to 6 AM 02/04/19 05:59 Intake Total 5700 ml Output Total 1355 ml Balance 4345 ml ARNAUD EDEN DO Feb 04, 2019 09:47
--- NOTE | 2019-02-04 10:24 | REP ---
Clinical: Evaluate for intra-articular fractures. Technique: Axial noncontrast images through the right ankle with coronal and sagittal re-formations. Findings: There is a comminuted oblique fracture through the distal tibial metadiaphysis with mild displacement. There is also a hairline fracture identified at the articular surface of the distal tibia along the plafond just before the medial malleolus (axial image 79) . There is a comminuted oblique fracture through the distal fibular metadiaphysis as well as comminuted nondisplaced intra-articular fracture at the distal tip of the fibula / lateral malleolus. Surrounding post traumatic infiltration and swelling noted. Impression: 1. Comminuted metadiaphyseal fractures of the distal tibia and fibula as well as subtle intra-articular fractures as described above. Electronically Signed by Elvin Amato MD 02/04/2019 10:15 A
[2019-02-04] MEDS: FAMOTIDINE 20 MG TAB PO SCH ×2 (10:26→20:46)
--- NOTE | 2019-02-04 12:01 | IPN ---
DATE: 02/04/2019 CHIEF COMPLAINT: Postoperative day #1 right lower extremity external fixator application. HISTORY OF PRESENT ILLNESS: 73-year-old man fell off a roof. We had performed an external fixator yesterday for his moderately-swollen distal tibia and fibula comminuted fracture. I have ordered a CT scan for this morning of his ankle to rule out intra-articular extension of the fracture as this may help in planning definitive surgery. He is doing well. Feels much more comfortable. His pain is 1-2 out of 10. PHYSICAL EXAM: Well-appearing 73-year-old man. He is receiving Venturi mask this morning. Otherwise, his vital signs are stable. Temperature 98.1. Blood pressure 152/71. External fixator is in situ on the right lower extremity. He is a little bit more swollen actually today, and he is hanging it down a little bit. He is able to wiggle his toes. The foot is warm and well perfused. Pin sites are covered. ASSESSMENT/PLAN: 73-year-old man, we are awaiting definitive fixation given the swelling and his high rate of possible soft tissue complications given the swelling and his advanced age, as well as the nature of the fracture being high energy. We have encouraged him to try to elevate it up as much as possible at this point. In addition, there is a small ulcer developing in his right hip that was seen during surgery, and we will try to get the wound care nurses involved with the help of Yris, our nurse practitioner, who I thanked greatly for their involvement in this man's care. We will control his pain. Venous thromboembolism (VTE) prophylaxis. We will start that. I will followup with a CT scan of his right ankle to help plan the definitive surgery and rule out intra-articular extent of the distal tibia fracture. He is well aware of this, and I will round on him every 1-2 days.
[2019-02-04] MEDS: SUCRALFATE SUSP 1GM/10ML UD PO SCH ×2 (12:48→18:31)
[2019-02-04] MEDS: RIVAROXABAN 10 MG TAB (XARELTO) PO SCH (18:31)
[2019-02-04] MEDS: ATORVASTATIN 20 MG TAB PO SCH (20:46)
[2019-02-05] MEDS: IPRATROPIUM 0.5MG/ALBUTEROL 2.5MG INH SOL UD 3ML (DUONEB)(J7620) NEB SCH ×7 (00:02→23:25)
[2019-02-05] MEDS: MAALOX 30 ML SUSP *UDC PO PRN (03:42)
[2019-02-05 05:39] VITALS: BP 152/76
[2019-02-05] MEDS ORDERED: MAGNESIUM CITRATE 300 ML BTL PO ONE (06:00)
[2019-02-05] MEDS: BUDESONIDE 0.5 MG/2 ML INHALATION SUSPENSION INH SCH ×2 (07:18→17:55)
[2019-02-05] MEDS: SUCRALFATE SUSP 1GM/10ML UD PO SCH ×3 (09:11→17:47)
[2019-02-05] MEDS: MOM 30ML SUSPENSION UDC PO SCH (09:11)
[2019-02-05] MEDS: MIRALAX *UNIT DOSE* 17GM PACKET PO SCH (09:11)
[2019-02-05] MEDS: SENOKOT S TAB PO SCH ×2 (09:12→19:45)
[2019-02-05] MEDS: VITAMIN D 1,000 INTERNATIONAL UNITS TABLET PO SCH (09:12)
[2019-02-05] MEDS: FAMOTIDINE 20 MG TAB PO SCH ×2 (09:12→21:34)
[2019-02-05] MEDS: amLODIPine 10 MG TAB PO SCH (09:12)
--- NOTE | 2019-02-05 11:38 | IPNPDOC ---
Text Note Date of Service The patient was seen on 02/05/19. NOTE S; patient is POD 1 after application of external fixator to right tib/fib fracture. He is complaining of increased acid reflux. states refusing to eat breakfast because of reflux. temporary relief with PPI and carafate. states reflux due to pain medication (none given this AM). states no SOB, no CP. Passing gas but no stool. O: Vitals as below General: pleasant NAD AAOx3 HRRR no murmur LCTA no W/R/R (recent neb) Abdomen soft NT ND NABS A/P: 1) tib/fib fracture: Post Op day 1 external fixator placed; management per ortho, oxycodone for pain; (patient had hypoxia and confusion with repeat dilaudid dosing). xarelto 2) right hip abrasion, small ulceration- present on admission associated with fall wound nurse consult 3) GERD - temp relief with mylanta -. on pepcid and carafate; add PPI 4) COPD no exacerbation, - may have JEMIMA component which needs to be evaluated as outpatient. -- scheduled nebs to q4 and prn to q1h. - IS PEP post op. - no need for IV steroids. (avoid steroid IV or po if possible due to possible delay healing from fracture) 5) HTN - continue home regimen and monitor 6) History of CVA - ASA on hold. continue with xarelto VS,Fishbone, I+O VS, Fishbone, I+O Vital Signs Date Time Temp Pulse Resp B/P (MAP) Pulse Ox O2 Delivery O2 Flow Rate FiO2 02/05/19 09:12 87 152/76 02/05/19 05:39 98.0 18 88 02/04/19 21:00 Room Air 02/04/19 07:28 6.0 28 I&O- Last 24 Hours up to 6 AM 02/05/19 06:00 Intake Total 2260 ml Output Total 1060 ml Balance 1200 ml ARNAUD EDEN DO Feb 05, 2019 11:38
[2019-02-05] MEDS: PANTOPRAZOLE 40MG TAB (PROTONIX) PO SCH ×2 (13:15→21:36)
[2019-02-05 15:35] VITALS: BP 111/64
[2019-02-05] MEDS: RIVAROXABAN 10 MG TAB (XARELTO) PO SCH (17:47)
[2019-02-05] MEDS: ATORVASTATIN 20 MG TAB PO SCH (21:36)
[2019-02-05 22:00] VITALS: BP 114/62
[2019-02-06] MEDS: ALBUTEROL SULFATE 2.5 MG/0.5 ML INH NEB SOLN INH PRN ×2 (00:59→04:59)
[2019-02-06] MEDS: IPRATROPIUM 0.5MG/ALBUTEROL 2.5MG INH SOL UD 3ML (DUONEB)(J7620) NEB SCH ×6 (03:55→23:22)
[2019-02-06] MEDS ORDERED: SYMBICORT 80/4.5MCG INHALER 6GM INH ONE (05:30)
[2019-02-06 06:00] VITALS: BP 135/76
[2019-02-06] MEDS ORDERED: methylPREDNISolone INJ 40 MG/1 ML VIAL (J2920) IV SCH (06:00)
[2019-02-06 07:01] LABS: HEMATOCRIT 33.4 % (42.0-52.0); MEAN CORPUSCULAR HGB CONC 32.9 g/dl (32.0-36.5); MEAN CORPUSCULAR VOLUME 94.1 fl (80.0-96.0); PLATELET COUNT, AUTOMATED 209 10^3/uL (150-450); RED BLOOD COUNT 3.55 10^6/uL (4.30-6.10); WHITE BLOOD COUNT 6.6 10^3/uL (4.0-10.0)
[2019-02-06 07:24] LABS: BLOOD UREA NITROGEN 11 MG/DL (7-18); CALCIUM LEVEL 8.1 MG/DL (8.8-10.2); CARBON DIOXIDE LEVEL 28 MEQ/L (21-32); CHLORIDE LEVEL 108 MEQ/L (98-107); CREATININE FOR GFR 0.95 MG/DL (0.70-1.30); GLOMERULAR FILTRATION RATE > 60.0 (>42); GLUCOSE, FASTING 110 MG/DL (70-100); POTASSIUM SERUM 4.1 MEQ/L (3.5-5.1); SODIUM LEVEL 140 MEQ/L (136-145)
[2019-02-06] MEDS: SYMBICORT 80/4.5MCG INHALER 6GM INH SCH ×2 (07:28→19:14)
[2019-02-06] MEDS: SUCRALFATE SUSP 1GM/10ML UD PO SCH ×3 (08:39→17:45)
[2019-02-06] MEDS: MOM 30ML SUSPENSION UDC PO SCH (08:40)
[2019-02-06] MEDS: PANTOPRAZOLE 40MG TAB (PROTONIX) PO SCH ×2 (08:40→21:36)
[2019-02-06] MEDS: amLODIPine 10 MG TAB PO SCH (08:40)
[2019-02-06] MEDS: FAMOTIDINE 20 MG TAB PO SCH ×2 (08:40→21:36)
[2019-02-06] MEDS: VITAMIN D 1,000 INTERNATIONAL UNITS TABLET PO SCH (08:40)
[2019-02-06] MEDS: SENOKOT S TAB PO SCH ×2 (08:41→21:36)
[2019-02-06] MEDS: MIRALAX *UNIT DOSE* 17GM PACKET PO SCH (08:41)
--- NOTE | 2019-02-06 12:02 | IPNPDOC ---
Subjective Date Seen The patient was seen on 02/06/19. Subjective Chief Complaint/HPI Patient seen and examined at the bedside. Patient did state that he had some wheezing early this morning, which was relieved by a dose of steroids and a nebulizer treatment. Denies any complaints of shortness of breath, or chest pain this morning. Objective Physical Examination General Exam: Positive: Alert, Cooperative, No Acute Distress ENT Exam: Positive: Atraumatic, Mucous membr. moist/pink Neck Exam: Negative: JVD Chest Exam: Positive: Diminished; Negative: Rales Heart Exam: Positive: Rate Normal, Normal S1, Normal S2 Abdomen Exam: Positive: Soft (NT ND, large reducible umbilical hernia present) Extremity Exam: Positive: Tenderness (right leg (external fixator in place for fracture stabilization). ) Psych Exam: Positive: Oriented x 3 Assessment /Plan Plan/VTE VTE Prophylaxis Ordered?: No Plan RLE Tib/fib fracture s/p external fixator placed on 02/03/19 by Orthopedic Surgery; further management per ortho, oxycodone for pain Xarelto for DVT prophylaxis Will f/u with Orthopedic Surgery regarding further surgical intervention Right hip abrasion, small ulceration- present on admission associated with fall Wound nurse consulted GERD Cont on pepcid and carafate; add PPI COPD Cont regimen as ordered HTN continue home regimen and monitor History of CVA ASA on hold. continue with xarelto Continue atorvastatin DVT prophylaxis On Xarelto as per Ortho VS, I&O, 24H, Fishbone Vital Signs/I&O Vital Signs Date Time Temp Pulse Resp B/P (MAP) Pulse Ox O2 Delivery O2 Flow Rate FiO2 02/06/19 08:40 99 135/76 02/06/19 06:00 98.0 18 93 2.0 02/04/19 21:00 Room Air 02/04/19 07:28 28 I&O- Last 24 Hours up to 6 AM 02/06/19 06:00 Intake Total 1110 ml Output Total 1125 ml Balance -15 ml Laboratory Data 24H LABS Laboratory Tests 2 02/06/19 06:47: Nucleated Red Blood Cells % (auto) 0.0, Anion Gap 4L, Glomerular Filtration Rate > 60.0, Blood Urea Nitrogen 11, Creatinine 0.95, Sodium Level 140, Potassium Level 4.1, Chloride Level 108H, Carbon Dioxide Level 28, Calcium Level 8.1L CBC/BMP Laboratory Tests 02/06/19 06:47 Red Blood Count 3.55 L, Mean Corpuscular Volume 94.1, Mean Corpuscular Hemoglobin 31.0, Mean Corpuscular Hemoglobin Concent 32.9, Red Cell Distribution Width 13.3, Calcium Level 8.1 L DENISA GRANADOS MD Feb 06, 2019 12:02
[2019-02-06 14:45] VITALS: BP 137/65
[2019-02-06] MEDS: RIVAROXABAN 10 MG TAB (XARELTO) PO SCH (17:45)
[2019-02-06] MEDS: ONDANSETRON 4MG/2ML VIAL (J2405) IV PRN (17:52)
[2019-02-06] MEDS: ATORVASTATIN 20 MG TAB PO SCH (21:36)
[2019-02-06 22:00] VITALS: BP 130/76
[2019-02-07] MEDS: ONDANSETRON 4MG/2ML VIAL (J2405) IV PRN ×2 (01:57→10:07)
[2019-02-07] MEDS: IPRATROPIUM 0.5MG/ALBUTEROL 2.5MG INH SOL UD 3ML (DUONEB)(J7620) NEB SCH ×6 (04:13→23:41)
[2019-02-07 06:00] VITALS: BP 134/75
[2019-02-07] MEDS: SYMBICORT 80/4.5MCG INHALER 6GM INH SCH ×2 (07:21→19:07)
[2019-02-07] MEDS: MOM 30ML SUSPENSION UDC PO SCH (09:10)
[2019-02-07] MEDS: SUCRALFATE SUSP 1GM/10ML UD PO SCH ×3 (09:10→17:59)
[2019-02-07] MEDS: FAMOTIDINE 20 MG TAB PO SCH ×2 (09:10→20:59)
[2019-02-07] MEDS: VITAMIN D 1,000 INTERNATIONAL UNITS TABLET PO SCH (09:10)
[2019-02-07] MEDS: MIRALAX *UNIT DOSE* 17GM PACKET PO SCH (09:10)
[2019-02-07] MEDS: amLODIPine 10 MG TAB PO SCH (09:10)
[2019-02-07] MEDS: SENOKOT S TAB PO SCH ×2 (09:10→20:58)
[2019-02-07] MEDS: PANTOPRAZOLE 40MG TAB (PROTONIX) PO SCH ×2 (09:10→20:58)
--- NOTE | 2019-02-07 13:58 | IPN ---
DATE: 02/07/2019 Postoperative day 3 after right tibia external fixator application. Phong is seen today on Valentin. I placed an external fixator on Tuesday, 3 days ago. We were waiting for the swelling to come down to plan definitive open reduction, internal fixation (ORIF). The patient is doing well aside from missing his home cooking a little bit with some acid reflux. PHYSICAL EXAMINATION: Well-appearing man in no acute distress. The leg is elevated. He has an edin on the distal tibia and right lower extremity. Dressings are in situ. Warm and well perfused. Good dorsalis pedis pulse. He is able to wiggle his toes. There is sensation of the foot. CT scan was reviewed. This shows a long distal third fibula fracture at the level of the mortise. Ankle mortise appears normal. Distal fibula spiral fracture is slightly comminuted, displaced. There is an intra-articular sagittal split at the medial side of the joint surface of the distal tibia that appears nondisplaced. ASSESSMENT/PLAN: This man with displaced intra-articular distal tibia-fibula fracture, the swelling is nearly down enough to perform open reduction, internal fixation. This may be ready by the weekend in a few more days. I would favor to do a complete fixation with anterolateral plate on the tibia and direct lateral approach with long plating of the fibula fracture. I think that this would be difficult to treat with IM nail and fibula fracture plating, however, this would be a possible option but difficult given the intra-articular split into the joint, as well as the distal nature of the fracture. I will chart and plan this for the coming weekend and I will also consult with one of the partners at [facility] in regard to their opinion with regard to this trauma case. I will update Mr. Castro within the next 1 or 2 days on a more definitive plan.
--- NOTE | 2019-02-07 16:55 | IPNPDOC ---
Subjective Date Seen The patient was seen on 02/07/19. Subjective Chief Complaint/HPI Patient seen and examined at the bedside. No acute overnight events noted. Objective Physical Examination General Exam: Positive: Alert, Cooperative, No Acute Distress ENT Exam: Positive: Atraumatic, Mucous membr. moist/pink Neck Exam: Negative: JVD Chest Exam: Positive: Diminished; Negative: Rales Heart Exam: Positive: Rate Normal, Normal S1, Normal S2 Abdomen Exam: Positive: Soft (NT ND, large reducible umbilical hernia present) Extremity Exam: Positive: Normal pulses, Tenderness (right leg (external fixator in place for fracture stabilization). ) Psych Exam: Positive: Oriented x 3 Assessment /Plan Plan/VTE VTE Prophylaxis Ordered?: Yes Plan RLE Tib/fib fracture s/p external fixator placed on 02/03/19 by Orthopedic Surgery; further management per ortho, oxycodone for pain Xarelto for DVT prophylaxis Will f/u with Orthopedic Surgery regarding further surgical intervention Right hip abrasion, small ulceration- present on admission associated with fall Wound nurse consulted GERD Cont on pepcid and carafate; add PPI COPD Cont regimen as ordered HTN continue home regimen and monitor History of CVA ASA on hold. continue with xarelto Continue atorvastatin DVT prophylaxis On Xarelto as per Ortho VS, I&O, 24H, Fishbone Vital Signs/I&O Vital Signs Date Time Temp Pulse Resp B/P (MAP) Pulse Ox O2 Delivery O2 Flow Rate FiO2 02/07/19 09:10 86 134/75 02/07/19 06:00 98.1 16 89 02/06/19 06:00 2.0 02/04/19 21:00 Room Air 02/04/19 07:28 28 I&O- Last 24 Hours up to 6 AM 02/07/19 06:00 Intake Total 0 ml Output Total 1300 ml Balance -1300 ml DENISA GRANADOS MD Feb 07, 2019 16:55
[2019-02-07] MEDS: RIVAROXABAN 10 MG TAB (XARELTO) PO SCH (17:59)
[2019-02-07] MEDS: ATORVASTATIN 20 MG TAB PO SCH (20:58)
[2019-02-07 22:00] VITALS: BP 124/64
[2019-02-08] MEDS: IPRATROPIUM 0.5MG/ALBUTEROL 2.5MG INH SOL UD 3ML (DUONEB)(J7620) NEB SCH ×6 (03:13→23:20)
[2019-02-08 06:00] VITALS: BP 125/66
[2019-02-08] MEDS: SYMBICORT 80/4.5MCG INHALER 6GM INH SCH ×2 (07:16→19:39)
[2019-02-08 09:00] VITALS: BP 124/68
[2019-02-08] MEDS: MIRALAX *UNIT DOSE* 17GM PACKET PO SCH ×2 (09:00→09:21)
[2019-02-08] MEDS: SUCRALFATE SUSP 1GM/10ML UD PO SCH ×3 (09:22→17:51)
[2019-02-08] MEDS: MOM 30ML SUSPENSION UDC PO SCH (09:22)
[2019-02-08] MEDS: VITAMIN D 1,000 INTERNATIONAL UNITS TABLET PO SCH (09:23)
[2019-02-08] MEDS: SENOKOT S TAB PO SCH ×2 (09:24→21:00)
[2019-02-08] MEDS: FAMOTIDINE 20 MG TAB PO SCH ×2 (09:24→21:00)
[2019-02-08] MEDS: amLODIPine 10 MG TAB PO SCH (09:25)
[2019-02-08] MEDS: PANTOPRAZOLE 40MG TAB (PROTONIX) PO SCH ×2 (09:25→21:00)
--- NOTE | 2019-02-08 13:14 | IPNPDOC ---
Subjective Date Seen The patient was seen on 02/08/19. Subjective Chief Complaint/HPI Patient seen and examined at the bedside. Denies any acute overnight complaints. He is tentatively scheduled to have orthopedic intervention this weekend. Objective Physical Examination General Exam: Positive: Alert, Cooperative, No Acute Distress ENT Exam: Positive: Atraumatic, Mucous membr. moist/pink Neck Exam: Negative: JVD Chest Exam: Positive: Diminished; Negative: Rales Heart Exam: Positive: Rate Normal, Normal S1, Normal S2 Abdomen Exam: Positive: Soft (NT ND, large reducible umbilical hernia present) Extremity Exam: Positive: Normal pulses, Tenderness (right leg (external fixator in place for fracture stabilization). ) Psych Exam: Positive: Oriented x 3 Assessment /Plan Plan/VTE VTE Prophylaxis Ordered?: Yes Plan RLE Tib/fib fracture s/p external fixator placed on 02/03/19 by Orthopedic Surgery; further management per ortho, oxycodone for pain Xarelto for DVT prophylaxis Will f/u with Orthopedic Surgery regarding further surgical intervention Right hip abrasion, small ulceration- present on admission associated with fall Wound nurse consulted GERD Cont on pepcid and carafate; add PPI COPD Cont regimen as ordered HTN continue home regimen and monitor History of CVA ASA on hold. continue with xarelto Continue atorvastatin DVT prophylaxis On Xarelto as per Ortho VS, I&O, 24H, Fishbone Vital Signs/I&O Vital Signs Date Time Temp Pulse Resp B/P (MAP) Pulse Ox O2 Delivery O2 Flow Rate FiO2 02/08/19 09:25 88 124/68 02/08/19 09:00 97.9 28 93 02/06/19 06:00 2.0 02/04/19 21:00 Room Air 02/04/19 07:28 28 I&O- Last 24 Hours up to 6 AM 02/08/19 06:00 Intake Total 450 ml Output Total 1000 ml Balance -550 ml DENISA GRANADOS MD Feb 08, 2019 13:14
[2019-02-08 14:00] VITALS: BP 131/74
[2019-02-08] MEDS: RIVAROXABAN 10 MG TAB (XARELTO) PO SCH (17:51)
[2019-02-08 20:48] VITALS: BP 128/74
[2019-02-08] MEDS: PERCOCET 5MG/325MG TAB PO PRN (20:59)
[2019-02-08] MEDS: ATORVASTATIN 20 MG TAB PO SCH (21:00)
[2019-02-09] MEDS: PERCOCET 5MG/325MG TAB PO PRN ×3 (03:35→17:27)
[2019-02-09] MEDS: IPRATROPIUM 0.5MG/ALBUTEROL 2.5MG INH SOL UD 3ML (DUONEB)(J7620) NEB SCH ×6 (03:41→23:35)
[2019-02-09 06:12] LABS: HEMATOCRIT 36.4 % (42.0-52.0); HEMOGLOBIN 12.2 g/dl (13.5-17.5); MEAN CORPUSCULAR HEMOGLOBIN 31.8 pg (27.0-33.0); MEAN CORPUSCULAR HGB CONC 33.5 g/dl (32.0-36.5); MEAN CORPUSCULAR VOLUME 94.8 fl (80.0-96.0); PLATELET COUNT, AUTOMATED 207 10^3/uL (150-450); RED BLOOD COUNT 3.84 10^6/uL (4.30-6.10); WHITE BLOOD COUNT 5.7 10^3/uL (4.0-10.0)
[2019-02-09 06:21] VITALS: BP 114/69
[2019-02-09 06:39] LABS: BLOOD UREA NITROGEN 17 MG/DL (7-18); CALCIUM LEVEL 8.7 MG/DL (8.8-10.2); CARBON DIOXIDE LEVEL 31 MEQ/L (21-32); CHLORIDE LEVEL 104 MEQ/L (98-107); CREATININE FOR GFR 1.18 MG/DL (0.70-1.30); GLOMERULAR FILTRATION RATE > 60.0 (>42); GLUCOSE, FASTING 111 MG/DL (70-100); POTASSIUM SERUM 3.8 MEQ/L (3.5-5.1); SODIUM LEVEL 138 MEQ/L (136-145)
--- NOTE | 2019-02-09 08:02 | IPN ---
DATE: 02/09/2019 CHIEF COMPLAINT: Postoperative day about a week right tibia fracture external fixator application. HISTORY OF PRESENT ILLNESS: This is a 73-year-old man seen today in the [facility]. I have been following his swelling along for a planned delayed open reduction and internal fixation. He is doing well and comfortable. . PHYSICAL EXAMINATION: Well-appearing 73-year-old man. The swelling looks like it has come down nicely. Positive wrinkle test throughout his right lower extremity. External fixator in situ. He is able to wiggle his toes. Normal sensation of the foot. A little bit of subjective decreased sensation in the tips of the toes and possibly on the plantar aspect of his foot. The foot is warm and well perfused with strong dorsalis pedis pulses. ASSESSMENT/PLAN: I will add this on to the emergency case list for tomorrow. Plan for open reduction internal fixation with medial long tibial plating and lateral fibular plating as well. We will make him nothing by mouth (n.p.o.) after midnight and to 2 grams IV Ancef prior to the surgery.
[2019-02-09] MEDS: SYMBICORT 80/4.5MCG INHALER 6GM INH SCH ×2 (08:10→19:31)
[2019-02-09] MEDS: MIRALAX *UNIT DOSE* 17GM PACKET PO SCH (08:44)
[2019-02-09] MEDS: VITAMIN D 1,000 INTERNATIONAL UNITS TABLET PO SCH (08:44)
[2019-02-09] MEDS: FAMOTIDINE 20 MG TAB PO SCH ×2 (08:44→20:20)
[2019-02-09] MEDS: amLODIPine 10 MG TAB PO SCH (08:44)
[2019-02-09] MEDS: SUCRALFATE SUSP 1GM/10ML UD PO SCH ×3 (08:44→16:31)
[2019-02-09] MEDS: SENOKOT S TAB PO SCH ×2 (08:44→20:20)
[2019-02-09] MEDS: PANTOPRAZOLE 40MG TAB (PROTONIX) PO SCH ×2 (08:44→20:20)
[2019-02-09] MEDS: MOM 30ML SUSPENSION UDC PO SCH (08:44)
--- NOTE | 2019-02-09 13:47 | IPNPDOC ---
Subjective Date Seen The patient was seen on 02/09/19. Subjective Chief Complaint/HPI Patient seen and examined at the bedside. He is anticipating surgery to be done tomorrow. Denies any acute overnight events. Objective Physical Examination General Exam: Positive: Alert, Cooperative, No Acute Distress ENT Exam: Positive: Atraumatic, Mucous membr. moist/pink Neck Exam: Negative: JVD Chest Exam: Positive: Diminished; Negative: Rales Heart Exam: Positive: Rate Normal, Normal S1, Normal S2 Abdomen Exam: Positive: Soft (NT ND, large reducible umbilical hernia present) Extremity Exam: Positive: Normal pulses, Tenderness (right leg (external fixator in place for fracture stabilization). ) Psych Exam: Positive: Oriented x 3 Assessment /Plan Plan/VTE VTE Prophylaxis Ordered?: Yes Plan RLE Tib/fib fracture s/p external fixator placed on 02/03/19 by Orthopedic Surgery; further management per ortho, oxycodone for pain Xarelto for DVT prophylaxis Will f/u with Orthopedic Surgery regarding further surgical intervention Right hip abrasion, small ulceration- present on admission associated with fall Wound nurse consulted GERD Cont on pepcid and carafate; add PPI COPD Cont regimen as ordered HTN continue home regimen and monitor History of CVA ASA on hold. continue with xarelto Continue atorvastatin DVT prophylaxis On Xarelto as per Ortho VS, I&O, 24H, Drake Vital Signs/I&O Vital Signs Date Time Temp Pulse Resp B/P (MAP) Pulse Ox O2 Delivery O2 Flow Rate FiO2 02/09/19 12:38 16 02/09/19 08:44 86 114/69 02/09/19 06:21 98.2 90 02/06/19 06:00 2.0 02/04/19 21:00 Room Air 02/04/19 07:28 28 I&O- Last 24 Hours up to 6 AM 02/09/19 06:00 Intake Total 1470 ml Output Total 1050 ml Balance 420 ml Laboratory Data 24H LABS Laboratory Tests 2 02/09/19 06:00: Nucleated Red Blood Cells % (auto) 0.0, Anion Gap 3L, Glomerular Filtration Rate > 60.0, Blood Urea Nitrogen 17#, Creatinine 1.18, Sodium Level 138, Potassium Level 3.8, Chloride Level 104, Carbon Dioxide Level 31, Calcium Level 8.7L CBC/BMP Laboratory Tests 02/09/19 06:00 Red Blood Count 3.84 L, Mean Corpuscular Volume 94.8, Mean Corpuscular Hemoglobin 31.8, Mean Corpuscular Hemoglobin Concent 33.5, Red Cell Distribution Width 13.1, Calcium Level 8.7 L DENISA GRANADOS MD Feb 09, 2019 13:47
[2019-02-09 14:45] VITALS: BP 120/61
[2019-02-09] MEDS: ATORVASTATIN 20 MG TAB PO SCH (20:19)
[2019-02-09 22:21] VITALS: BP 120/55
[2019-02-10] VITALS (11 sets, daily range): BP systolic 114–125; BP diastolic 62–74; O2SAT 94
[2019-02-10] MEDS: PERCOCET 5MG/325MG TAB PO PRN ×5 (02:50→20:03)
[2019-02-10] MEDS: IPRATROPIUM 0.5MG/ALBUTEROL 2.5MG INH SOL UD 3ML (DUONEB)(J7620) NEB SCH ×5 (04:29→19:03)
[2019-02-10] MEDS: SYMBICORT 80/4.5MCG INHALER 6GM INH SCH ×2 (07:09→19:03)
[2019-02-10] MEDS: SUCRALFATE SUSP 1GM/10ML UD PO SCH ×3 (07:30→16:40)
[2019-02-10] MEDS ORDERED: dexameTHASONE 4 MG/ML 1ML VIAL (J1100) As Ordered ONE (07:53)
[2019-02-10] MEDS ORDERED: ONDANSETRON 4MG/2ML VIAL (J2405) As Ordered ONE ×2 (07:53→09:57)
[2019-02-10] MEDS ORDERED: PROPOFOL 200 MG/20 ML VIAL As Ordered ONE (07:53)
[2019-02-10] MEDS ORDERED: LIDOCAINE 2% INJ 100 MG/5 ML SDV (FOR ANES.) As Ordered ONE (07:53)
[2019-02-10] MEDS ORDERED: ROCURONIUM BROMIDE 50 MG/5 ML VIAL As Ordered ONE (07:59)
[2019-02-10] MEDS ORDERED: MIDAZOLAM INJ 2 MG/2 ML VIAL (J2250) As Ordered ONE (08:00)
[2019-02-10] MEDS ORDERED: fentaNYL 100 MCG/2 ML INJECTION (J3010) As Ordered ONE ×2 (08:00→09:22)
[2019-02-10] MEDS ORDERED: ceFAZolin 1GM INJ (J0690 PER 500MG) As Ordered ONE ×3 (08:01→08:22)
[2019-02-10] MEDS: MOM 30ML SUSPENSION UDC PO SCH (09:00)
[2019-02-10] MEDS: SENOKOT S TAB PO SCH ×2 (09:00→20:01)
[2019-02-10] MEDS: MIRALAX *UNIT DOSE* 17GM PACKET PO SCH (09:00)
[2019-02-10] MEDS ORDERED: SUGAMMADEX SODIUM 500 MG/5 ML VIAL (BRIDION) As Ordered ONE (09:57)
[2019-02-10] MEDS ORDERED: ACETAMINOPHEN 1000MG 100ML IV BTL (OFIRMEV) (J0131 PER 10MG) As Ordered ONE (09:58)
[2019-02-10] MEDS ORDERED: KETOROLAC 60 MG/2 ML VIAL (J1885) As Ordered ONE (11:03)
--- NOTE | 2019-02-10 11:27 | REP ---
REASON: Status post ORIF tibia. Internal fixation plate and screws are seen over the lateral cortex of the distal fibula and medial cortex of the distal tibial. Four spot views have been provided for review. They have been obtained in my absentia. 55 seconds of fluoroscopy time was provide to Dr. Arevalo for the exam. Electronically Signed by Krunal Bartlett DO 02/10/2019 12:57 P
[2019-02-10] MEDS ORDERED: PERCOCET 5MG/325MG TAB As Ordered ONE ×2 (12:30→12:57)
[2019-02-10] MEDS ORDERED: HYDROMORPHONE HCL 0.5 MG/ 0.5 ML SYRINGE (J1170 PER 1) As Ordered ONE ×2 (12:38→12:57)
[2019-02-10] MEDS ORDERED: ALBUTEROL SULFATE 2.5 MG/0.5 ML INH NEB SOLN As Ordered ONE (12:45)
[2019-02-10] MEDS ORDERED: ONDANSETRON 4MG/2ML VIAL (J2405) IV PRN (12:45)
[2019-02-10] MEDS ORDERED: fentaNYL 100 MCG/2 ML INJECTION (J3010) IV PRN (12:45)
[2019-02-10] MEDS ORDERED: LR 1,000 ML IV SCH ×3 (12:45)
[2019-02-10] MEDS: HYDROMORPHONE HCL 0.5 MG/ 0.5 ML SYRINGE (J1170 PER 1) IV PRN ×3 (12:45→13:00)
[2019-02-10] MEDS: ALBUTEROL SULFATE 2.5 MG/0.5 ML INH NEB SOLN INH PRN (12:50)
--- NOTE | 2019-02-10 13:10 | IPNPDOC ---
Subjective Date Seen The patient was seen on 02/10/19. Subjective Chief Complaint/HPI Patient tentatively scheduled for orthopedic surgical intervention this morning. No acute overnight events noted Objective Physical Examination General Exam: Positive: Alert, Cooperative, No Acute Distress ENT Exam: Positive: Atraumatic, Mucous membr. moist/pink Neck Exam: Negative: JVD Chest Exam: Positive: Diminished; Negative: Rales Heart Exam: Positive: Rate Normal, Normal S1, Normal S2 Abdomen Exam: Positive: Soft (NT ND, large reducible umbilical hernia present) Extremity Exam: Positive: Normal pulses, Tenderness (right leg (external fixator in place for fracture stabilization). ) Psych Exam: Positive: Oriented x 3 Assessment /Plan Plan/VTE VTE Prophylaxis Ordered?: Yes Plan RLE Tib/fib fracture s/p external fixator placed on 02/03/19 by Orthopedic Surgery; further management per ortho, oxycodone for pain Xarelto for DVT prophylaxis Will f/u with Orthopedic Surgery regarding further surgical intervention Right hip abrasion, small ulceration- present on admission associated with fall Wound nurse consulted GERD Cont on pepcid and carafate; add PPI COPD Cont regimen as ordered HTN continue home regimen and monitor History of CVA ASA on hold. continue with xarelto as per Ortho Continue atorvastatin DVT prophylaxis On Xarelto as per Ortho VS, I&O, 24H, Fishbone Vital Signs/I&O Vital Signs Date Time Temp Pulse Resp B/P (MAP) Pulse Ox O2 Delivery O2 Flow Rate FiO2 02/10/19 13:00 98 78 16 140/72 (94) 97 2 02/10/19 01:12 Room Air 02/04/19 07:28 28 I&O- Last 24 Hours up to 6 AM 02/10/19 06:00 Intake Total 1290 ml Output Total 2050 ml Balance -760 ml DENISA GRANADOS MD Feb 10, 2019 13:10
[2019-02-10] MEDS ORDERED: ALBUTEROL SULFATE 2.5 MG/0.5 ML INH NEB SOLN INH ONE (13:15)
[2019-02-10] MEDS: FAMOTIDINE 20 MG TAB PO SCH ×2 (14:19→20:01)
[2019-02-10] MEDS: PANTOPRAZOLE 40MG TAB (PROTONIX) PO SCH ×2 (14:19→20:01)
[2019-02-10] MEDS: VITAMIN D 1,000 INTERNATIONAL UNITS TABLET PO SCH (14:20)
[2019-02-10] MEDS: amLODIPine 10 MG TAB PO SCH (14:20)
--- NOTE | 2019-02-10 15:35 | RO ---
DATE OF PROCEDURE: 02/10/2019 PREOPERATIVE DIAGNOSIS: Right tibia-fibula fracture. POSTOPERATIVE DIAGNOSIS: Right tibia-fibula fracture. PLANNED PROCEDURE: Right lower extremity removal external fixator and reduction internal fixation tibia and fibula. PROCEDURE PERFORMED: Right lower extremity removal external fixator and reduction internal fixation tibia and fibula. SURGEON: Jose Arevalo MD [employer] CLERK: ANESTHESIA: OPERATIVE PREAMBLE: This 73-year-old man fell off a roof. He had a twisting injury. Sustained a distal spiral fracture with comminution of both his tibia and fibula. I had placed an external fixator to wait for the swelling to come down. It came down well. We talked about the pros, cons, risks, benefits going ahead with removal of the external fixator and reduction internal fixation. He wished to go ahead and I have again marked the right lower extremity. OPERATIVE REPORT: Patient was brought to the operating theater. He was placed supine on the operating room table. Bone foam leg elevator was used. All bony prominences padded. Tourniquet was applied to the right thigh. General anesthesia was induced. 2 grams of IV Ancef was administered. The leg was prepped and draped in the usual sterile fashion. I prepped the external fixator side with iodine prep solution. This was thoroughly dried. Preoperative time out was performed to confirm the site and the patient. I removed the crossbar from the external fixator. I then made a anteromedial incision centered 1 cm lateral to the subcutaneous anterior border of the tibia. I carried dissection down through skin and subcutaneous tissue. Distally I curved the incision towards the medial malleolus at a 70 degree angle. I protect the saphenous vein throughout the case. I identified the anterior compartment. I incised along the anterior tibial crest and then elevated medially. I identified the fracture site. I attempted to keep this back in. Unfortunately, the external fixator was preventing from achieving anatomic reduction. I removed the external fixator. I curetted the pin hole sites. I thoroughly irrigated these. I removed the Dione pin by cutting it off medially and then removing it through the lateral portal site. I cleared away any interposed periosteum and fracture hematoma. I achieved an anatomic reduction. I clamped two AO pointed reduction forceps across the fracture. This was a long spiral fracture with moderate comminution medially. One of the fracture fragments was devitalized, it was removed. I then placed a 3.5 mm fully threaded cortical screw in a lag screw fashion by overdrawing the proximal cortex of the 3.5 mm drill and then a 2.5 mm drill across the lateral cortex. This achieved nice reduction. I then selected a Synthes medial precontoured locking plate. This was 168 mm right. It sat down nicely on the bone. I inserted one proximal fully threaded cortical screw just proximal to the fracture site. This achieved a nice reduction of the plate down to the bone. On the lateral x-ray the plate appeared appropriately positioned, slightly anteriorly, but clinically this was nicely positioned. I then placed another lag screw from A to P in the same fashion to capture the distal extent of the fracture as well. I then filled the proximal holes of the plate with locking screws as well as the other distal holes. The locking screws were encountering the A to P lag screws so these were short screws. Ankle mortise was anatomic. Joint space appeared normal. I then turned my attention to the fibula. This again was a comminuted fracture. I made approximately a 6 inch incision centered over lateral subcutaneous border of the tibia ensuring good skin bridge between the two incisions. I carried this dissection down skin and subcutaneous tissue. Achieved meticulous hemostasis. I dissected down to the level of the fracture. I elevated the periosteum from the lateral aspect of the fibula along its length. There was a moderate amount comminution along a 2 inch span that was unable to achieve a perfect anatomic reduction. As such, I selected a 9 hole laterally based Synthes fibula locking plate. I inserted one cortical screw through the oblong hole to chief reduction of the plate down to bone. I ensured that it was in proper position laterally as well as from anterior to posterior. I then inserted the 2.7 mm fully threaded cortical locking screws distally as well as another 3.5 mm fully threaded cortical screw to achieve reduction of the plate down to the bone. Fibula was up to length. Fracture was clamped prior to fully seating the plate down to the bone. I ensured that the fibular was up to length on AP and lateral radiographs. I then inserted the remaining proximal locking screws. These were all 3.5 mm locking screws. I thoroughly irrigated the wounds with normal saline. This was followed by subcutaneous closure with #2-0 Vicryl sutures. For the anteromedial skin incision I placed all the sutures and then I snapped them so that the tension would be same across the wound. I tied these sequentially. I then also closed subcutaneous tissue of the laterally based incision with again interrupted subcutaneous #2-0 Vicryl sutures. Skin was closed with #3-0 Ethilon suture in a horizontal mattress fashion. Skin was cleaned with wet and dry dressing. Steri-Strips were lightly placed cross the incisions. Adaptic, 4 x 8 gauze, ABD dressing and sterile cast padding was placed in a below knee fashion. A three sided plaster of Valerie splint was placed with the foot in neutral. This was overwrapped with 6 inch Isacc bandage. Tourniquet was inflated to 250 mm at the start the case and taken down prior to the end of the case. Total tourniquet time was under 2 hours. It was taken down prior to the end of the case and no bleeding was noted. Once the splint had fully hardened, the patient was transferred off the operating table and taken to the postanesthetic care unit in stable condition. All sponge, needle, instrument counts were correct. No complications. Estimated blood loss 200 mL. PLAN: The patient is to be strict non-weightbearing. Strict elevation. No anticoagulation for least 48 hours after surgery. I did speak with his daughter and reiterated the need for strict elevation given the importance of the soft tissues to heal. He will seen the physical therapist to ensure safety for mobilization and discharge home. I would to follow him up in about 5-6 days to make sure the wound appears normal and remove and change the splint. I have given his daughter my cell phone number and encouraged her to call me if there are any concerns or questions.
[2019-02-10] MEDS: ATORVASTATIN 20 MG TAB PO SCH (20:01)
[2019-02-11] VITALS (7 sets, daily range): BP systolic 129–141; BP diastolic 54–72; O2SAT 95
[2019-02-11] MEDS: PERCOCET 5MG/325MG TAB PO PRN ×6 (01:33→22:23)
[2019-02-11] MEDS: IPRATROPIUM 0.5MG/ALBUTEROL 2.5MG INH SOL UD 3ML (DUONEB)(J7620) NEB SCH ×7 (03:35→23:46)
[2019-02-11] MEDS: SYMBICORT 80/4.5MCG INHALER 6GM INH SCH ×2 (07:14→19:32)
[2019-02-11 08:09] LABS: HEMOGLOBIN 10.6 g/dl (13.5-17.5); MEAN CORPUSCULAR HEMOGLOBIN 30.8 pg (27.0-33.0); MEAN CORPUSCULAR HGB CONC 32.1 g/dl (32.0-36.5); MEAN CORPUSCULAR VOLUME 95.9 fl (80.0-96.0); PLATELET COUNT, AUTOMATED 237 10^3/uL (150-450); RED BLOOD COUNT 3.44 10^6/uL (4.30-6.10); WHITE BLOOD COUNT 7.3 10^3/uL (4.0-10.0)
[2019-02-11] MEDS: VITAMIN D 1,000 INTERNATIONAL UNITS TABLET PO SCH (08:29)
[2019-02-11] MEDS: amLODIPine 10 MG TAB PO SCH (08:29)
[2019-02-11] MEDS: MIRALAX *UNIT DOSE* 17GM PACKET PO SCH (08:29)
[2019-02-11] MEDS: SUCRALFATE SUSP 1GM/10ML UD PO SCH ×3 (08:29→16:49)
[2019-02-11] MEDS: SENOKOT S TAB PO SCH ×2 (08:29→20:19)
[2019-02-11] MEDS: PANTOPRAZOLE 40MG TAB (PROTONIX) PO SCH ×2 (08:29→20:19)
[2019-02-11] MEDS: FAMOTIDINE 20 MG TAB PO SCH ×2 (08:29→20:19)
[2019-02-11] MEDS: MOM 30ML SUSPENSION UDC PO SCH (08:29)
--- NOTE | 2019-02-11 08:33 | IPN ---
DATE: 02/11/2019 Postoperative day one right tibia and fibula removal of external fixator and open reduction internal fixation. HISTORY OF PRESENT ILLNESS: This 73-year-old man was seen today on [facility]. He is postoperative day #1 from his right lower extremity surgery. He is doing well. One leg was elevated by himself. He is comfortable. No concerns from him or the nursing staff. PHYSICAL EXAMINATION: Well-appearing 73-year-old man. He is pleasant. Vital signs are stable. Blood pressure 131/65. Pulse rate 83. Temperature 98.0. Respiratory rate 18. 94% on room air. Right lower extremities appropriately elevated. His toes are warm, well perfused. Capillary refill under 3 seconds. He is able to wiggle his toes. Normal sensation of toes. ASSESSMENT/PLAN This is a 73-year-old man. We will assess him for support needed at home and have physical therapist continue to see him. We will see how that goes over the next few days and whether it is reasonable or not to discharge him home. I would like to follow up and check the wounds in 3-5 days as he has two somewhat large incisions in his distal leg and is a 73-year-old individual.
[2019-02-11 08:34] LABS: BLOOD UREA NITROGEN 16 MG/DL (7-18); CALCIUM LEVEL 8.2 MG/DL (8.8-10.2); CARBON DIOXIDE LEVEL 29 MEQ/L (21-32); CHLORIDE LEVEL 105 MEQ/L (98-107); CREATININE FOR GFR 1.03 MG/DL (0.70-1.30); GLOMERULAR FILTRATION RATE > 60.0 (>42); GLUCOSE, FASTING 109 MG/DL (70-100); POTASSIUM SERUM 4.1 MEQ/L (3.5-5.1); SODIUM LEVEL 139 MEQ/L (136-145)
--- NOTE | 2019-02-11 11:42 | IPNPDOC ---
Subjective Date Seen The patient was seen on 02/11/19. Subjective Chief Complaint/HPI Patient seen and examined at the bedside. Reports that his pain is well controlled following orthopedic surgery intervention yesterday. No acute overnight events noted. Objective Physical Examination General Exam: Positive: Alert, Cooperative, No Acute Distress ENT Exam: Positive: Atraumatic, Mucous membr. moist/pink Neck Exam: Negative: JVD Chest Exam: Positive: Diminished Heart Exam: Positive: Rate Normal, Normal S1, Normal S2 Abdomen Exam: Positive: Soft; Negative: Tenderness Extremity Exam: Positive: Normal pulses, Other (right lower extremity noted to be wrapped in surgical dressing. Range of motion limited due to recent surgical intervention. Neurovascularly intact distally.) Psych Exam: Positive: Oriented x 3 Assessment /Plan Plan/VTE VTE Prophylaxis Ordered?: Yes Plan RLE Tib/fib fracture s/p external fixator placed on 02/03/19 by Orthopedic Surgery s/p removal of external fixator and open reduction internal fixation on 02/10/19 Xarelto for DVT prophylaxis Will f/u with Orthopedic Surgery regarding further surgical intervention Right hip abrasion, small ulceration- present on admission associated with fall Wound nurse consulted GERD Cont on pepcid and carafate; add PPI COPD Cont regimen as ordered HTN continue home regimen and monitor History of CVA ASA on hold. continue with xarelto as per Ortho Continue atorvastatin DVT prophylaxis On Xarelto as per Ortho Disposition pending clinical improvement, functional optimization with physical therapy. VS, I&O, 24H, Fishbone Vital Signs/I&O Vital Signs Date Time Temp Pulse Resp B/P (MAP) Pulse Ox O2 Delivery O2 Flow Rate FiO2 02/11/19 10:10 16 02/11/19 10:00 98.3 87 141/72 (95) 96 02/10/19 22:00 2.0 02/10/19 21:00 Room Air 02/10/19 13:00 28 I&O- Last 24 Hours up to 6 AM 02/11/19 05:59 Intake Total 2567 ml Output Total 1380 ml Balance 1187 ml Laboratory Data 24H LABS Laboratory Tests 2 02/11/19 07:46: Nucleated Red Blood Cells % (auto) 0.0, Anion Gap 5L, Glomerular Filtration Rate > 60.0, Blood Urea Nitrogen 16, Creatinine 1.03, Sodium Level 139, Potassium Level 4.1, Chloride Level 105, Carbon Dioxide Level 29, Calcium Level 8.2L CBC/BMP Laboratory Tests 02/11/19 07:46 Red Blood Count 3.44 L, Mean Corpuscular Volume 95.9, Mean Corpuscular Hemoglobin 30.8, Mean Corpuscular Hemoglobin Concent 32.1, Red Cell Distribution Width 12.9, Calcium Level 8.2 L DENISA GRANADOS MD Feb 11, 2019 11:42
[2019-02-11] MEDS ORDERED: RIVAROXABAN 10 MG TAB (XARELTO) PO SCH (18:00)
[2019-02-11] MEDS: ATORVASTATIN 20 MG TAB PO SCH (20:19)
[2019-02-12] MEDS: PERCOCET 5MG/325MG TAB PO PRN ×3 (03:14→12:09)
[2019-02-12] MEDS: IPRATROPIUM 0.5MG/ALBUTEROL 2.5MG INH SOL UD 3ML (DUONEB)(J7620) NEB SCH ×3 (03:19→11:10)
[2019-02-12 06:00] VITALS: BP 142/57
[2019-02-12] MEDS: SUCRALFATE SUSP 1GM/10ML UD PO SCH ×2 (07:40→12:09)
--- NOTE | 2019-02-12 07:40 | IPN ---
DATE: 02/12/2019 CHIEF COMPLAINT: Postoperative day #2 right tibia-fibula open reduction internal fixation with dual plating. HISTORY OF PRESENT ILLNESS: This is a 73-year-old man seen today on [facility]. He is postop day #2. He is doing well. No specific concerns or complaints from him or the nursing staff. PHYSICAL EXAMINATION: Well-appearing 73-year-old man. The legs elevate appropriately. He is able to toes. Toes are warm well perfused with good cap refill under 3 seconds. He is alert and oriented and quite a pleasant individual. ASSESSMENT/PLAN: 73-year-old man. We are working on disposition. I am hoping the social workers can see him and with help of Yris, our nurse practitioner, we will determine appropriate placement for this man and what support he may need, if he is discharged back to his residence.
[2019-02-12] MEDS: SYMBICORT 80/4.5MCG INHALER 6GM INH SCH (07:56)
[2019-02-12 08:18] VITALS: BP 142/57
[2019-02-12] MEDS: PANTOPRAZOLE 40MG TAB (PROTONIX) PO SCH (08:18)
[2019-02-12] MEDS: VITAMIN D 1,000 INTERNATIONAL UNITS TABLET PO SCH (08:18)
[2019-02-12] MEDS: amLODIPine 10 MG TAB PO SCH (08:18)
[2019-02-12] MEDS: SENOKOT S TAB PO SCH (08:18)
[2019-02-12] MEDS: MIRALAX *UNIT DOSE* 17GM PACKET PO SCH (08:18)
[2019-02-12] MEDS: FAMOTIDINE 20 MG TAB PO SCH (08:18)
[2019-02-12] MEDS: MOM 30ML SUSPENSION UDC PO SCH (08:18)
[2019-02-12 09:35] VITALS: O2SAT 92
[2019-02-12] MEDS ORDERED: PERCOCET PO (12:00)
[2019-02-12] MEDS ORDERED: XARE10TA PO (12:00)
--- NOTE | 2019-02-12 15:16 | DS.PDOC ---
Discharge Summary General Date of Admission Feb 02, 2019 at 13:27 Date of Discharge 02/12/19 Specialist/Consultants Involve Dr. Arevalo of Orthopedic Surgery Discharge Summary PROCEDURES PERFORMED DURING STAY: s/p external fixator placed on 02/03/19 by Orthopedic Surgery. S/p removal of external fixator and open reduction internal fixation on 02/10/19. ADMITTING/DISCHARGE DIAGNOSES: RLE Tib/Fib Fracture s/p external fixator placed on 02/03/19 by Orthopedic Surgery s/p removal of external fixator and open reduction internal fixation on 02/10/19 COMPLICATIONS/CHIEF COMPLAINT: Tibia Fracture. HISTORY OF PRESENT ILLNESS: . 73 yo male was working on barn roof when he slipped and landed on his buttock and felt intense right leg pain. When he slid off the roof he had no loss of consciousness or head injury. He was brought to ED and found to have tib/fib fracture. RLE Tib/fib fracture s/p external fixator placed on 02/03/19 by Orthopedic Surgery s/p removal of external fixator and open reduction internal fixation on 02/10/19 Xarelto for DVT prophylaxis Will f/u with Orthopedic Surgery regarding further surgical intervention Right hip abrasion, small ulceration- present on admission associated with fall Wound nurse consulted GERD Cont on pepcid and carafate; add PPI COPD Cont regimen as ordered HTN continue home regimen and monitor History of CVA ASA on hold. continue with xarelto as per Ortho Continue atorvastatin DVT prophylaxis On Xarelto as per Ortho Disposition-at this time the patient will be transferred to the [facility] for further functional optimization. He has been counseled to follow-up with his primary care physician within 7 days. He is also to follow up with orthopedic surgery as scheduled. Lastly, the patient is to resume his full dose of aspirin following completion of his DVT prophylaxis trial. DISCHARGE MEDICATIONS: Please see below. ALLERGIES: Please see below. PHYSICAL EXAMINATION ON DISCHARGE: VITAL SIGNS: Please see below. General Exam: Positive: Alert, Cooperative, No Acute Distress ENT Exam: Positive: Atraumatic, Mucous membr. moist/pink Neck Exam: Negative: JVD Chest Exam: Positive: Diminished Heart Exam: Positive: Rate Normal, Normal S1, Normal S2 Abdomen Exam: Positive: Soft; Negative: Tenderness Extremity Exam: Positive: Normal pulses, Other (right lower extremity noted to be wrapped in surgical dressing. Range of motion limited due to recent surgical intervention. Neurovascularly intact distally.) Psych Exam: Positive: Oriented x 3 IMAGING: Clinical: Trauma. Technique: AP and lateral views of the right tibia / fibula. Findings: Comminuted mildly displaced and posteriorly angulated fractures of the distal tibial and fibular diaphyses. Impression: Fractures of the distal tibial and fibular diaphyses. Clinical: Fracture. Technique: Single fluoroscopic AP view using portable C-arm technique. Findings: Fractures of the distal tibial and fibular metadiaphysis noted. Total fluoroscopic time 37 seconds. Impression: Tibial and fibular fractures. Clinical: Evaluate for intra-articular fractures. Technique: Axial noncontrast images through the right ankle with coronal and sagittal re-formations. Findings: There is a comminuted oblique fracture through the distal tibial metadiaphysis with mild displacement. There is also a hairline fracture identified at the articular surface of the distal tibia along the plafond just before the medial malleolus (axial image 79) . There is a comminuted oblique fracture through the distal fibular metadiaphysis as well as comminuted nondisplaced intra-articular fracture at the distal tip of the fibula / lateral malleolus. Surrounding post traumatic infiltration and swelling noted. Impression: 1. Comminuted metadiaphyseal fractures of the distal tibia and fibula as well as subtle intra-articular fractures as described above. REASON: Status post ORIF tibia. Internal fixation plate and screws are seen over the lateral cortex of the distal fibula and medial cortex of the distal tibial. Four spot views have been provided for review. They have been obtained in my absentia. PROGNOSIS: Fair ACTIVITY: As recommended by physical therapy/orthopedic surgery DIET: As tolerated DISCHARGE PLAN: DISPOSITION: [facility]. DISCHARGE INSTRUCTIONS: Follow up as noted above. DISCHARGE CONDITION: Stable. TIME SPENT ON DISCHARGE: Greater than 30 minutes. Vital Signs/I&Os Vital Signs Date Time Temp Pulse Resp B/P (MAP) Pulse Ox O2 Delivery O2 Flow Rate FiO2 02/12/19 12:09 18 02/12/19 09:35 92 02/12/19 08:18 76 142/57 02/12/19 06:00 98.4 02/11/19 21:00 Room Air 02/10/19 22:00 2.0 02/10/19 13:00 28 I&O- Last 24 Hours up to 6 AM 02/12/19 06:00 Intake Total 2250 ml Output Total 2130 ml Balance 120 ml Discharge Medications Scheduled Alendronate Sodium (Alendronate Sodium) 70 Mg Tab, 70 MG PO QWEEK, (Reported) SUNDAYS Amlodipine Besylate (Amlodipine Besylate) 10 Mg Tab, 10 MG PO DAILY, (Reported) Atorvastatin Calcium (Atorvastatin Calcium) 40 Mg Tab, 40 MG PO QHS, (Reported) Calcium Carbonate (Calcium) 600 Mg Tablet, 600 MG PO DAILY, (Reported) Cholecalciferol (Vitamin D3) (Vitamin D3) 1,000 Unit Tablet, 1,000 UNIT PO DAILY, (Reported) Diltiazem Hcl (Cardizem Cd) 240 Mg Cap, 240 MG PO QHS, (Reported) Fluticasone/Vilanterol (Breo Ellipta 100-25 Mcg INH) 1 Inh Inh, 1 PUFF INH DAILY, (Reported) Rivaroxaban (Xarelto) 10 Mg Tablet, 10 MG PO DAILY@18 Scheduled PRN Albuterol Sulfate (Proventil Hfa) 108 Mcg/Act Aer, 2 PUFFS INH Q4H PRN for SOB/WHEEZING, (Reported) Albuterol Sulfate (Albuterol Sulfate) 2.5 Mg/0.5 Ml Vial.neb, 2.5 MG INH Q6H PRN for SHORTNESS OF BREATH, (Reported) Oxycodone/Acetaminophen (Oxycodone-Acetaminophen 5-325) 1 Each Tablet, 2 TAB PO Q4HP PRN for PAIN Allergies Coded Allergies: clopidogrel (Unverified Allergy, Severe, DIFFICULTY BREATHING, 10/02/18) lisinopril (Unverified Allergy, Severe, ANAPHYLAXIS, 10/02/18) DENISA GRANADOS MD Feb 12, 2019 15:16
== END 2019-02-12 13:25 | DRG 494 ==
LOC: EDBD 10:41 → M ED 10:41 → M ED INP 13:27 → M MS5PR 15:25
PROVIDERS: ADMIT Family Medicine; ATTEND Family Medicine
PROC: 0QHJ35Z Insertion of External Fixation Device into Right Fibula, Percutaneous Approach (ICD-10-PCS; 2019-02-03)
PROC: 0QHG35Z Insertion of External Fixation Device into Right Tibia, Percutaneous Approach (ICD-10-PCS; principal; 2019-02-03 09:30)
PROC: 0QSH04Z Reposition Left Tibia with Internal Fixation Device, Open Approach (ICD-10-PCS; 2019-02-10)
PROC: 0QSJ04Z Reposition Right Fibula with Internal Fixation Device, Open Approach (ICD-10-PCS; 2019-02-10)
PROC: 0QP Lower Bones, Removal (ICD-10-PCS; 2019-02-10)
PROC: 0QPJ35Z Removal of External Fixation Device from Right Fibula, Percutaneous Approach (ICD-10-PCS; 2019-02-10)
DX: S82.441A Displaced spiral fracture of shaft of right fibula, initial encounter for closed fracture (principal); S82.241A Displaced spiral fracture of shaft of right tibia, initial encounter for closed fracture; W13.2XXA Fall from, out of or through roof, initial encounter; I70.0 Atherosclerosis of aorta; I10 Essential (primary) hypertension; E78.5 Hyperlipidemia, unspecified; Z90.5 Acquired absence of kidney; Z85.528 Personal history of other malignant neoplasm of kidney; Z86.73 Personal history of transient ischemic attack (TIA), and cerebral infarction without residual deficits; Z87.74 Personal history of (corrected) congenital malformations of heart and circulatory system; K57.90 Diverticulosis of intestine, part unspecified, without perforation or abscess without bleeding; N40.0 Benign prostatic hyperplasia without lower urinary tract symptoms; N28.1 Cyst of kidney, acquired; J44.9 Chronic obstructive pulmonary disease, unspecified; Z87.891 Personal history of nicotine dependence; Z79.82 Long term (current) use of aspirin; Z79.899 Other long term (current) drug therapy; Z88.8 Allergy status to other drugs, medicaments and biological substances; K21.9 Gastro-esophageal reflux disease without esophagitis; Y92.89 Other specified places as the place of occurrence of the external cause; Y93.H3 Activity, building and construction

== ENCOUNTER → 2019-02-20 | Outpatient (REF) ==
[~2019-02-20] MED LIST changes: +ALB2.5NEB INH; +CALC600T5 PO; +D-10TAB3 PO; +XARE10TA PO
[2019-02-20 08:43] LABS: HEMOGLOBIN 10.9 g/dl (13.5-17.5); MEAN CORPUSCULAR HEMOGLOBIN 30.2 pg (27.0-33.0); MEAN CORPUSCULAR HGB CONC 32.1 g/dl (32.0-36.5); MEAN CORPUSCULAR VOLUME 94.2 fl (80.0-96.0); PLATELET COUNT, AUTOMATED 331 10^3/uL (150-450); RED BLOOD COUNT 3.61 10^6/uL (4.30-6.10); WHITE BLOOD COUNT 4.4 10^3/uL (4.0-10.0)
[2019-02-20 09:02] LABS: BLOOD UREA NITROGEN 9 MG/DL (7-18); CALCIUM LEVEL 8.8 MG/DL (8.8-10.2); CARBON DIOXIDE LEVEL 27 MEQ/L (21-32); CHLORIDE LEVEL 110 MEQ/L (98-107); CREATININE FOR GFR 0.96 MG/DL (0.70-1.30); GLOMERULAR FILTRATION RATE > 60.0 (>42); GLUCOSE, FASTING 108 MG/DL (70-100); SODIUM LEVEL 144 MEQ/L (136-145)
== END ==
PROVIDERS: ATTEND Physician Assistant
DX: I48.91 Unspecified atrial fibrillation (principal)

== ENCOUNTER → 2019-02-27 | Outpatient (REF) ==
[2019-02-27 09:50] LABS: HEMATOCRIT 35.5 % (42.0-52.0); HEMOGLOBIN 11.2 g/dl (13.5-17.5); MEAN CORPUSCULAR HGB CONC 31.5 g/dl (32.0-36.5); MEAN CORPUSCULAR VOLUME 95.2 fl (80.0-96.0); PLATELET COUNT, AUTOMATED 279 10^3/uL (150-450); RED BLOOD COUNT 3.73 10^6/uL (4.30-6.10); WHITE BLOOD COUNT 4.3 10^3/uL (4.0-10.0)
[2019-02-27 10:17] LABS: BLOOD UREA NITROGEN 10 MG/DL (7-18); CALCIUM LEVEL 8.4 MG/DL (8.8-10.2); CARBON DIOXIDE LEVEL 29 MEQ/L (21-32); CHLORIDE LEVEL 108 MEQ/L (98-107); CREATININE FOR GFR 0.85 MG/DL (0.70-1.30); GLOMERULAR FILTRATION RATE > 60.0 (>42); GLUCOSE, FASTING 90 MG/DL (70-100); POTASSIUM SERUM 4.1 MEQ/L (3.5-5.1); SODIUM LEVEL 144 MEQ/L (136-145)
== END ==
PROVIDERS: ATTEND Physician Assistant
DX: S82.91XA Unspecified fracture of right lower leg, initial encounter for closed fracture (principal)

== ENCOUNTER → 2019-05-28 | Outpatient (CLI) | payer MEDICARE, OTHER ==
[~2019-05-28] MED LIST changes: -ASPI-222 PO; +ASPI-527 PO; +PROV108A INH
--- NOTE | 2019-05-28 10:27 | REP ---
Clinical: Right shoulder pain. Technique: Internal rotation, external rotation, and Y view of the right shoulder. Findings: Generalized age-related osteopenia and degenerative changes are noted including subtle cortical irregularity at the acromioclavicular joint. There appears to be a small 6.5 mm loose body along the inferior margin of the glenoid rim. The subacromial space is normal. Vascular calcifications are identified. No acute fracture or dislocation. Impression: Mild degenerate of changes as described above. Electronically Signed by Elvin Amato MD 05/28/2019 10:19 A
== END ==
LOC: M WUC 08:33
PROVIDERS: ATTEND Physician Assistant
DX: M85.811 Other specified disorders of bone density and structure, right shoulder (principal); M25.511 Pain in right shoulder

== ENCOUNTER → 2019-08-01 | Outpatient (CLI) | payer MEDICARE, OTHER ==
--- NOTE | 2019-08-01 18:55 | REP ---
CHEST, TWO VIEWS: Two views of the chest are performed and compared to prior studies dating back to 02/27/2016. There is no acute infiltrate. Lungs are clear. Heart is normal in size. Mediastinal silhouette is unchanged. There are stable compression deformities of mid to lower thoracic vertebral bodies. IMPRESSION: No active pulmonary disease. Electronically Signed by José Lopez MD 08/03/2019 11:19 A
== END ==
LOC: M WUC 15:10
PROVIDERS: ATTEND Nurse Practitioner Family
DX: J44.9 Chronic obstructive pulmonary disease, unspecified (principal)

== ENCOUNTER → 2019-09-21 | Outpatient (REF) | payer MEDICARE, OTHER ==
[2019-09-21 12:58] LABS: BLOOD UREA NITROGEN 18 MG/DL (7-18); CREATININE FOR GFR 1.17 MG/DL (0.70-1.30); GLOMERULAR FILTRATION RATE > 60.0 (>42)
== END ==
LOC: M LABDRAW1 10:27
PROVIDERS: ATTEND Orthopaedic Surgery
DX: M54.6 Pain in thoracic spine (principal)

== ENCOUNTER → 2019-10-26 | Outpatient (CLI) | payer MEDICARE, OTHER | LOC: M LABSMTC 09:57 | PROVIDERS: ATTEND Family Medicine | DX: Z11.59 Encounter for screening for other viral diseases (principal); Z20.828 Contact with and (suspected) exposure to other viral communicable diseases ==

== ENCOUNTER 2019-11-27 10:41 | Emergency (ER) | payer MEDICARE, OTHER ==
[~2019-11-27] VITALS: Ht 170.2 cm; Wt 86.3 kg
[2019-11-27] MEDS ORDERED: ASPI-1 PO (10:48)
[2019-11-27 12:01] LABS: BASO % 0.8 % (0.0-1.0); EOS % 0.8 % (0.0-3.0); HEMATOCRIT 39.7 % (42.0-52.0); HEMOGLOBIN 13.2 g/dl (13.5-17.5); LYMPH # 0.7 10^3/uL (1.5-5.0); LYMPH % 14.3 % (24.0-44.0); MEAN CORPUSCULAR HEMOGLOBIN 31.5 pg (27.0-33.0); MEAN CORPUSCULAR HGB CONC 33.2 g/dl (32.0-36.5); MEAN CORPUSCULAR VOLUME 94.7 fl (80.0-96.0); MONO # 0.6 10^3/uL (0.0-0.8); MONO % 11.3 % (0.0-5.0); NEUTROPHILS # 3.5 10^3/uL (1.5-8.5); NEUTROPHILS % 71.8 % (36.0-66.0); PLATELET COUNT, AUTOMATED 217 10^3/uL (150-450); RED BLOOD COUNT 4.19 10^6/uL (4.30-6.10); WHITE BLOOD COUNT 4.9 10^3/uL (4.0-10.0)
[2019-11-27 12:02] LABS: INR 0.98; PROTHROMBIN TIME 12.7 SECONDS (11.8-14.0)
[2019-11-27 12:03] LABS: PARTIAL THROMBOPLASTIN TIME 27.4 SECONDS (25.0-38.4)
[2019-11-27 12:11] LABS: CK-MB VALUE MASS 1.6 NG/ML (<3.6); CPK CREATINE PHOSPHOKINASE 50 U/L (39-308); TROPONIN I < 0.02 NG/ML (< 0.10)
[2019-11-27 12:28] LABS: BLOOD UREA NITROGEN 15 MG/DL (7-18); CARBON DIOXIDE LEVEL 26 MEQ/L (21-32); CHLORIDE LEVEL 104 MEQ/L (98-107); CREATININE FOR GFR 1.21 MG/DL (0.70-1.30); GLOMERULAR FILTRATION RATE > 60.0 (>42); GLUCOSE, FASTING 91 MG/DL (70-100); POTASSIUM SERUM 4.3 MEQ/L (3.5-5.1); SODIUM LEVEL 136 MEQ/L (136-145)
[2019-11-27 12:45] VITALS: BP 128/63
--- NOTE | 2019-11-27 14:40 | REP ---
CT BRAIN WITHOUT CONTRAST: HISTORY: Left arm weakness and numbness. Comparison head CT study February 02, 2019. CT FINDINGS: Digital preliminary sprinkler fitter radiograph is unremarkable. The patient is edentulous. Bone window settings demonstrate an intact bony calvarium. Visualized paranasal sinuses are clear. There is mild to moderate vascular calcification in the distal internal carotid arteries bilaterally. Some distal vertebral artery calcification is seen. There is minimal generalized volume loss. There is a dystrophic calcification in the right frontal lobe region in the one of the sulci. There is no evidence of intracranial hemorrhage. No extra-axial fluid collection, mass, or midline shift is seen. Lopez/white differentiation pattern is normal. There is no evidence of acute infarction. IMPRESSION: Vascular calcification minimal atrophy. No infarct, hemorrhage, or mass is seen. Electronically Signed by Mesfin Nova MD 11/27/2019 05:59 P
--- NOTE | 2019-11-27 18:52 | ECGEPIP ---
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 Order Number: [id number] Reading MD: Ty Escobedo Measurements Intervals [place] Rate: 63 P: 34 ND: 164 QRS: 3 QRSD: 89 T: 20 QT: 391 QTc: 402 Interpretive Statements SINUS RHYTHM WITH SINUS ARRHYTHMIA BASELINE ARTIFACT AFFECTS INTERPRETATION SIMILAR TO 02/02/19 Electronically Signed on 11-27-2019 18:51:57 EDT by Ty Escobedo
== END 2019-11-27 13:19 | disposition home or self-care (01) ==
LOC: M ED 10:41
DX: R53.1 Weakness (principal); J44.9 Chronic obstructive pulmonary disease, unspecified; Z86.73 Personal history of transient ischemic attack (TIA), and cerebral infarction without residual deficits; Z79.899 Other long term (current) drug therapy; Z79.82 Long term (current) use of aspirin; Z88.8 Allergy status to other drugs, medicaments and biological substances

== ENCOUNTER 2019-12-21 12:06 | Emergency (ER) | payer MEDICARE, OTHER ==
[~2019-12-21] VITALS: Ht 167.6 cm; Wt 87.0 kg
[~2019-12-21 12:06] MED LIST changes: +ASPI-1 PO
[2019-12-21 13:51] LABS: BASO % 0.5 % (0.0-1.0); EOS % 0.5 % (0.0-3.0); HEMATOCRIT 40.4 % (42.0-52.0); HEMOGLOBIN 13.2 g/dl (13.5-17.5); LYMPH # 0.9 10^3/uL (1.5-5.0); LYMPH % 11.5 % (24.0-44.0); MEAN CORPUSCULAR HEMOGLOBIN 31.1 pg (27.0-33.0); MEAN CORPUSCULAR HGB CONC 32.7 g/dl (32.0-36.5); MEAN CORPUSCULAR VOLUME 95.3 fl (80.0-96.0); MONO # 0.6 10^3/uL (0.0-0.8); MONO % 8.7 % (0.0-5.0); NEUTROPHILS # 5.7 10^3/uL (1.5-8.5); NEUTROPHILS % 77.3 % (36.0-66.0); PLATELET COUNT, AUTOMATED 222 10^3/uL (150-450); RED BLOOD COUNT 4.24 10^6/uL (4.30-6.10); WHITE BLOOD COUNT 7.4 10^3/uL (4.0-10.0)
[2019-12-21 14:24] LABS: ALBUMIN 3.5 GM/DL (3.2-5.2); ALT/SGPT 30 U/L (12-78); BILIRUBIN,TOTAL 0.4 MG/DL (0.2-1.0); BLOOD UREA NITROGEN 21 MG/DL (7-18); CALCIUM LEVEL 9.1 MG/DL (8.8-10.2); CARBON DIOXIDE LEVEL 28 MEQ/L (21-32); CHLORIDE LEVEL 107 MEQ/L (98-107); CK-MB VALUE MASS 1.8 NG/ML (<3.6); CPK CREATINE PHOSPHOKINASE 35 U/L (39-308); CREATININE FOR GFR 1.05 MG/DL (0.70-1.30); GLOMERULAR FILTRATION RATE > 60.0 (>42); GLUCOSE, FASTING 93 MG/DL (70-100); MB/CK RELATIVE INDEX 5.14 (< OR =4); POTASSIUM SERUM 4.1 MEQ/L (3.5-5.1); SODIUM LEVEL 140 MEQ/L (136-145); TOTAL PROTEIN 6.1 GM/DL (6.4-8.2)
[2019-12-21] MEDS ORDERED: TAMS1CAP17 (14:25)
--- NOTE | 2019-12-21 14:39 | REP ---
CT BRAIN WITHOUT CONTRAST: HISTORY: Hypertension. Comparison study November 27, 2019. CT FINDINGS: Digital preliminary professional sports scout radiograph is unremarkable. Bony calvarium remains intact. Vascular calcification is again observed. Visualized paranasal sinuses are clear. On soft tissue window settings there is no evidence of intracranial hemorrhage. No acute infarction is seen. No extra-axial fluid collection mass or midline shift is observed. Findings are unchanged. IMPRESSION: No acute intracranial abnormality. Electronically Signed by Mesfin Nova MD 12/21/2019 05:44 P
[2019-12-21] MEDS ORDERED: ISOVUE-370 76% 100ML VIAL As Ordered ONE (15:26)
[2019-12-21] MEDS ORDERED: IPRATROPIUM 0.5MG/ALBUTEROL 2.5MG INH SOL UD 3ML (DUONEB) NEB ONE (16:00)
[2019-12-21 16:30] VITALS: BP 153/67
--- NOTE | 2019-12-21 17:26 | REP ---
REASON FOR EXAM: Chest pain. COMPARISON: Standard noncontrast enhanced chest CT of 02/02/2019. Contrast today 100 mL Isovue 370. There is excellent visualization of the pulmonary arterial vasculature. There are no focal filling defects present that would be considered consistent with pulmonary emboli. There is no mediastinal or hilar adenopathy. There are no pleural or pericardial effusions. The imaged upper abdomen shows a stable benign right adrenal gland nodule. The imaged osseous structures are within normal limits. The thoracic aorta shows calcific atherosclerotic change status quo. Evaluation of the lung rice show emphysematous changes status quo. There is a stable 8 mm sized ground-glass nodule and an apical posterior segment of the left upper lobe. Also in the apical posterior segment of the left upper lobe, there is an additional 1 cm sized ground-glass nodule which is also stable. No new abnormal nodules, masses, or opacities have developed. The lung rice are hyperexpanded. IMPRESSION: 1. There is no evidence of a pulmonary embolus. 2. Stable chronic lung field changes as described above. 3. Stable benign right adrenal gland nodule. Electronically Signed by Krunal Bartlett DO 12/24/2019 07:42 A
--- NOTE | 2019-12-22 08:02 | ECGEPIP ---
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
== END 2019-12-21 17:16 | disposition home or self-care (01) ==
LOC: M ED 12:06
DX: I10 Essential (primary) hypertension (principal); J44.9 Chronic obstructive pulmonary disease, unspecified; E78.5 Hyperlipidemia, unspecified; I25.2 Old myocardial infarction; Z79.899 Other long term (current) drug therapy; Z79.82 Long term (current) use of aspirin; Z88.8 Allergy status to other drugs, medicaments and biological substances; Z87.891 Personal history of nicotine dependence
CPT/HCPCS: 36415; 70450; 71275; 80053; 82550; 82553; 84484; 85025; 93005; 94640; 99285; Q9967

== ENCOUNTER → 2020-02-13 | Outpatient (CLI) | payer MEDICARE, OTHER ==
[~2020-02-13] MED LIST changes: -AMLO10TA5 PO; +AMLO1TAB25 PO; -CALC600T5 PO; +CALC600T61 PO; +CEPH500C PO; +D31000TA2 PO; +OMEP40CA97 PO; +SUCR1TA PO; +TAMS1CAP17 PO
--- NOTE | 2020-03-31 07:58 | REP ---
BILATERAL UPPER EXTREMITY DUPLEX DOPPLER ARTERIAL ULTRASOUND HISTORY: Differential brachial pressures right subclavian steal. TECHNIQUE: Real-time ultrasound evaluation and duplex Doppler interrogation of the bilateral upper extremity arterial systems is performed. FINDINGS: Vqkj-zv-swfxtixd plaquing is seen bilaterally, but to a greater extent on the right than on the left; particularly in the region of the right subclavian artery. Left upper extremity diffusely demonstrates biphasic and triphasic waveforms with relatively normal flow velocities and waveforms and no compelling evidence of significant stenosis. On the right, carotid ultrasound today showed a partial right subclavian steal. The right upper extremity waveforms are blunted and rounded and have increased systolic rise times compatible with a proximal stenosis. 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 The right subclavian artery demonstrates biphasic waveforms and normal flow velocities. There are monophasic waveforms in the right axillary artery with peak velocity of 31.3 cm/s. Triphasic waveforms are seen throughout the brachial artery with normal flow velocities. There are monophasic waveforms in the right radial artery diffusely with relatively normal flow velocities. Triphasic waveforms are seen throughout the ulnar artery with normal flow velocities. Focal plaque in the distal right subclavian artery is noted, as well as in the distal right ulnar artery, but luminal narrowing at those locations appears to be less than 50%. IMPRESSION: No compelling evidence of significant stenosis left upper extremity arterial system. On the right, monophasic waveform is noted in the right axillary artery and right radial artery. There are relatively normal flow velocities diffusely. 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 [facility]
--- NOTE | 2020-03-31 08:00 | REP ---
CAROTID ULTRASOUND HISTORY: Lightheadedness, dizziness. TECHNIQUE: Real-time ultrasound evaluation and duplex Doppler interrogation of the extracranial carotid vasculature is performed. FINDINGS: There is qwpxdhoi-sy-xlvpao plaquing seen in both carotid bulbs extending into the internal and externa carotid arteries. However, there is no evidence of elevated peak systolic velocity in either internal carotid artery and no compelling duplex Doppler sonographic evidence of hemodynamically significant stenosis. There does appear to be stenosis of the proximal left external carotid artery. On the right, the waveforms are mildly blunted and rounded in appearance with somewhat decreased velocity suggesting a possible more proximal stenosis. There is partial reversal of flow in the right vertebral artery compatible with partial right subclavian steal syndrome. RIGHT LEFT Peak systolic velocity ICA 83.0 cm/s 96.2 cm/s End diastolic velocity ICA 33.1 cm/s 19.1 cm/s Peak systolic velocity CCA 67.4 cm/s 93.3 cm/s Peak systolic velocity ECA 49.1 cm/s 256 cm/s ICA/CCA ratio 1.23 0.97 IMPRESSION: Hcudelzn-cl-bpjwdw scattered plaquing bilaterally, but no compelling duplex Doppler sonographic evidence of significant stenosis of either internal coronary artery. However, the waveforms on the right are blunted and rounded with somewhat decreased velocity suggesting a possible more proximal stenosis. There are also findings compatible with partial right-sided subclavian steal syndrome. MTDD
== END ==
LOC: M RAD 07:30
PROVIDERS: ATTEND Physician Assistant
DX: I65.23 Occlusion and stenosis of bilateral carotid arteries (principal); I70.209 Unspecified atherosclerosis of native arteries of extremities, unspecified extremity; R53.1 Weakness; R09.89 Other specified symptoms and signs involving the circulatory and respiratory systems

== ENCOUNTER → 2020-02-25 | Outpatient (CLI) | payer MEDICARE, OTHER ==
[2020-02-25 14:08] LABS: BLOOD UREA NITROGEN 17 MG/DL (7-18); GLOMERULAR FILTRATION RATE > 60.0 (>42)
== END ==
LOC: M LAB 08:40
PROVIDERS: ATTEND Physician Assistant
DX: G45.9 Transient cerebral ischemic attack, unspecified (principal); I65.23 Occlusion and stenosis of bilateral carotid arteries

== ENCOUNTER 2020-03-17 00:19 | Inpatient (IN) | payer MEDICARE, OTHER ==
[~2020-03-17] VITALS: Ht 167.6 cm; Wt 86.4 kg
[~2020-03-17 00:19] MED LIST changes: -CEPH500C PO; -D31000TA2 PO; -OMEP40CA97 PO; -SUCR1TA PO
--- NOTE | 2020-03-17 01:39 | REPVR ---
PROCEDURE INFORMATION: Exam: CT Head Without Contrast Exam date and time: 03/17/2020 1:25 AM Age: 75 years old4 Clinical indication: Pain; Headache; Additional info: CVA - nursing interventions must not delay CT TECHNIQUE: Imaging protocol: Computed tomography of the head without contrast. Radiation optimization: All CT scans at this facility use at least one of these dose optimization techniques: automated exposure control; mA and/or kV adjustment per patient size (includes targeted exams where dose is matched to clinical indication); or iterative reconstruction. Other technique: STROKE PROTOCOL was implemented. COMPARISON: CT Head without contrast 12/21/2019 12:51 PM FINDINGS: Brain: Normal. No hemorrhage. Unremarkable white matter. No mass effect. Ventricles: No ventriculomegaly. Bones/joints: Unremarkable. No acute fracture. Paranasal sinuses: Visualized sinuses are unremarkable. No fluid levels. Mastoid air cells: Visualized mastoid air cells are well aerated. Soft tissues: Unremarkable. IMPRESSION: No acute intracranial abnormality. ASSESSMENT: ASPECTS ([place] Stroke Program Early CT Score) is 10. Electronically signed by: Gilberto Rdz On 03/17/2020 01:38:25 AM
--- NOTE | 2020-03-17 01:50 | REPVR ---
PROCEDURE INFORMATION: Exam: XR Chest, 1 View Exam date and time: 03/17/2020 1:41 AM Age: 75 years old Clinical indication: Other: CVA? TECHNIQUE: Imaging protocol: XR of the chest Views: 1 view. COMPARISON: CR CHEST 2 VIEW 08/01/2019 3:20 PM FINDINGS: Lungs: Unremarkable. No consolidation. Pleural space: Unremarkable. No pleural effusion. No pneumothorax. Heart/Mediastinum: Unremarkable. No cardiomegaly. Bones/joints: Unremarkable. IMPRESSION: No acute findings. Electronically signed by: Gilberto Rdz On 03/17/2020 01:49:50 AM
[2020-03-17 02:11] LABS: BASO % 0.5 % (0.0-1.0); EOS % 0.4 % (0.0-3.0); HEMATOCRIT 39.1 % (42.0-52.0); HEMOGLOBIN 12.5 g/dl (13.5-17.5); LYMPH # 0.8 10^3/uL (1.5-5.0); LYMPH % 11.1 % (24.0-44.0); MEAN CORPUSCULAR HEMOGLOBIN 30.4 pg (27.0-33.0); MEAN CORPUSCULAR VOLUME 95.1 fl (80.0-96.0); MONO # 0.8 10^3/uL (0.0-0.8); MONO % 11.1 % (0.0-5.0); NEUTROPHILS # 5.5 10^3/uL (1.5-8.5); NEUTROPHILS % 74.7 % (36.0-66.0); PLATELET COUNT, AUTOMATED 279 10^3/uL (150-450); RED BLOOD COUNT 4.11 10^6/uL (4.30-6.10); WHITE BLOOD COUNT 7.4 10^3/uL (4.0-10.0)
[2020-03-17 02:12] VITALS: BP 119/66
[2020-03-17 02:26] LABS: INR 0.92; PROTHROMBIN TIME 12.5 SECONDS (11.8-14.0)
[2020-03-17 02:35] LABS: ALBUMIN 3.3 GM/DL (3.2-5.2); ALT/SGPT 29 U/L (12-78); BILIRUBIN,DIRECT 0.1 MG/DL (0.0-0.2); BILIRUBIN,TOTAL 0.3 MG/DL (0.2-1.0); C REACTIVE PROTEIN QUANTITATIV < 0.30 MG/DL (0.00-0.30); CK-MB VALUE MASS < 1.0 NG/ML (<3.6); CPK CREATINE PHOSPHOKINASE 23 U/L (39-308); MB/CK RELATIVE INDEX 4.35 (< OR =4); TOTAL PROTEIN 6.2 GM/DL (6.4-8.2); TROPONIN I < 0.02 NG/ML (< 0.10)
[2020-03-17 02:37] LABS: ERYTHROCYTE SEDIMENTATION RATE 25 mm/hr (0-20)
[2020-03-17] MEDS ORDERED: D31000TA2 PO (03:56)
[2020-03-17] MEDS ORDERED: ALBUTEROL SULFATE 2.5 MG/0.5 ML INH NEB SOLN NEB PRN (04:00)
[2020-03-17] MEDS: IPRATROPIUM 0.5MG/ALBUTEROL 2.5MG INH SOL UD 3ML (DUONEB) NEB SCH ×6 (04:15→23:45)
[2020-03-17 06:24] LABS: HEMATOCRIT 36.6 % (42.0-52.0); MEAN CORPUSCULAR HEMOGLOBIN 30.8 pg (27.0-33.0); MEAN CORPUSCULAR HGB CONC 32.8 g/dl (32.0-36.5); MEAN CORPUSCULAR VOLUME 93.8 fl (80.0-96.0); PLATELET COUNT, AUTOMATED 266 10^3/uL (150-450); WHITE BLOOD COUNT 7.3 10^3/uL (4.0-10.0)
[2020-03-17 06:43] LABS: HEMOGLOBIN A1c 5.7 %
[2020-03-17 06:55] LABS: ALT/SGPT 27 U/L (12-78); BILIRUBIN,TOTAL 0.3 MG/DL (0.2-1.0); BLOOD UREA NITROGEN 23 MG/DL (7-18); CALCIUM LEVEL 8.7 MG/DL (8.8-10.2); CARBON DIOXIDE LEVEL 27 MEQ/L (21-32); CHLORIDE LEVEL 110 MEQ/L (98-107); CHOLESTEROL LEVEL 131 MG/DL (<200); CHOLESTEROL RISK RATIO 2.015 (<5); CREATININE FOR GFR 0.97 MG/DL (0.70-1.30); GLOMERULAR FILTRATION RATE > 60.0 (>42); GLUCOSE, FASTING 99 MG/DL (70-100); HDL CHOLESTEROL 65 MG/DL (>40); LDL CHOLESTEROL 50 MG/DL (<100); NON-HDL-C 66 MG/DL; POTASSIUM SERUM 4.1 MEQ/L (3.5-5.1); SODIUM LEVEL 143 MEQ/L (136-145); TOTAL PROTEIN 6.1 GM/DL (6.4-8.2); TRIGLYCERIDES LEVEL 81 MG/DL (<150)
--- NOTE | 2020-03-17 07:01 | HPEPDOC ---
[facility] Medical History & Physical Date of Admission Mar 17, 2020 Date of Service: Mar 17, 2020 Attending Physician: Janay Linares MD History and Physical CHIEF COMPLAINT: Right eye vision loss HISTORY OF PRESENT ILLNESS: Patient is a 75 y/o M with PMH of TIA x3, CAD, COPD, HTN, Hx of PFO and closure who presented to [facility] ER with chief complaint of acute right eye vision loss. Patient states he had one episode on 03/13 of vision loss of right eye and then vision came back. For the past 3 days it was fine until 03/16/20 when his right eye went completely blind. Later he was able to see the outline of the lateral vision field but not medial in the right eye. He has had several TIAs in the past where his vision was effected like this. Patient denied chest pain, sob, weakness more than baseline (chronic left arm weakness), slurring of speech, drooping of face, drooling, n/v/d. He did admit to dizziness and lightheadedness. In ER, vision changes persisted. Eye exam was done and was as mentioned. CT head neg. Labs were unremarkable. Neurology was called and suggested admission for T IA, MRI brain, MRA brain and MRA neck, echocardiogram. They would see patient on floor. 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 ROS: Neg except for what is mentioned above. PAST MEDICAL HISTORY: 1. TIA x3 2. COPD 3. CAD 4. Hx of tobacco use 5. Hx of PFO s/p closure 6. torn rotator cuff 7. Chronic left arm weakness 8. PAD of right arm ?(follows with Dr. Robertson) with BP disorder- BP lower in right arm vs. left 9. Kidney cancer s/p right nephrectomy 10. OA 11. HTN PAST SURGICAL HISTORY: 1. PFO closure 2. back surgery x 2 3. right kidney biopsy 4. right nephrectomy 5. hernia repair x2 6. right testicular removal 7. right leg surgery SOCIAL HISTORY: 1- 2 PPD smoker for 50 years, quit 2 years ago. drinks alcohol daily (1 beer per day), denies drug use. Lives alone. FAMILY HISTORY: Father: CAD. in 80's Mother: CAD. in 80's ALLERGIES: Please see below. HOME MEDICATIONS: Please see below. PHYSICAL EXAMINATION: VITAL SIGNS: Please see below GENERAL APPEARANCE: AAOx 3, NAD, resting in bed HEENT: AT/NC, PERRLA, EOM intact, moist oral mucosa CARDIOVASCULAR: S1S2, no M/R/G LUNGS: CTAB, no W/R/R ABDOMEN: soft, nontender, BS + 4 quad MUSCULOSKELETAL: no atrophy, ROM not tested EXTREMITIES: No edema, cyanosis or clubbing NEUROLOGICAL: CN 2-12 intact, lateral vision field ok of right eye, decreased vision medially when tested. Left eye no abnormalities. No nystagmus, reflexes wnl. No sensory or motor loss. PSYCHIATRIC: Mood and affect appropriate. LABORATORY DATA: See below. IMAGING: CT head neg. F/u MRI brain, MRA brain, MRA neck MICROBIOLOGY: Please see below. 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 PLAN: 1. 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 -Acute as of 03/16/20, not improved vision. No other focal deficits. -F/u MRA/MRI brain, MRA neck, echocardiogram with bubble study -C/w ASA, statin. Allergic to Plavix. -Neurology (Dr. Castaneda) consulted to follow. Ophthalmology consult if possible in house 2. Left arm weakness, chronic. -Per patient, his physicians have been working this up as o/p for quite some time now -No new weakness with current issues -Monitor closely 3. BP disorder, possibly 2/2 to arterial stenosis. Right arm BP < left arm BP -Stable -Currently follows with Dr. Robertson o/p 4. COPD -Stable -Duonebs ATC, albuterol PRN, other home meds 5. CAD -Stable. -C/w home medications 6. HTN. -Stable. -C/w home meds. 7. DVT px. -lovenox daily DISPOSITION: Admitted under inpatient status. Plan for neurology, hopefully ophthalmology to give recommendations on consultation. PT/OT, discharge home when medically improved. Vital Signs Vital Signs Date Time Temp Pulse Resp B/P (MAP) Pulse Ox O2 Delivery O2 Flow Rate FiO2 03/17/20 04:39 64 18 131/65 (87) 98 Room Air 03/17/20 02:12 98.1 Laboratory Data Labs 24H Laboratory Tests 2 03/17/20 01:59: Immature Granulocyte % (Auto) 2.2, Neutrophils (%) (Auto) 74.7H, Lymphocytes (%) (Auto) 11.1L, Monocytes (%) (Auto) 11.1H, Eosinophils (%) (Auto) 0.4, Basophils (%) (Auto) 0.5, Neutrophils # (Auto) 5.5, Lymphocytes # (Auto) 0.8L, Monocytes # (Auto) 0.8, Eosinophils # (Auto) 0.0, Basophils # (Auto) 0.0, Nucleated Red Blood Cells % (auto) 0.0, Erythrocyte Sedimentation Rate 25H, Prothrombin Time 12.5, Prothromb Time International Ratio 0.92, Activated Partial Thromboplast T shelby 26.0, Total Bilirubin 0.3, Direct Bilirubin 0.1, Aspartate Amino Transf (AST/SGOT) 14, Alanine Aminotransferase (ALT/SGPT) 29, Alkaline Phosphatase 63, Total Creatine Kinase 23L, Creatine Kinase MB < 1.0, Creatine Kinase MB Relative Index 4.35H, Troponin I < 0.02, C-Reactive Protein, Quantitative < 0.30, Total Protein 6.2L, Albumin 3.3, Albumin/Globulin Ratio 1.1 03/17/20 06:00: Nucleated Red Blood Cells % (auto) 0.0, Total Bilirubin 0.3, Aspartate Amino Transf (AST/SGOT) 13, Alanine Aminotransferase (ALT/SGPT) 27, Alkaline Phosphatase 57, Total Protein 6.1L, Albumin 3.0L, Albumin/Globulin Ratio 1.0, Anion Gap 6L, Glomerular Filtration Rate > 60.0, Estimated Mean Plasma Glucose 117H, Hemoglobin A1c 5.7, Calcium Level 8.7L, Triglycerides Level 81, Total Cholesterol 131, LDL Cholesterol 50, Non-HDL Cholesterol (LDL + VLDL) 66, Total HDL Cholesterol 65, Cholesterol/HDL Ratio 2.015 CBC/BMP Laboratory Tests 03/17/20 01:59 03/17/20 06:00 Home Medications Scheduled Alendronate Sodium (Alendronate Sodium) 70 Mg Tab, 70 MG PO QWEEK SUNDAYS Amlodipine Besylate (Amlodipine Besylate) 10 Mg Tab, 10 MG PO QHS Aspirin (Aspirin) 325 Mg Tablet, 325 MG PO DAILY Atorvastatin Calcium (Atorvastatin Calcium) 40 Mg Tab, 40 MG PO QHS Calcium Carbonate (Calcium) 600 Mg Tablet, 600 MG PO DAILY Cholecalciferol (Vitamin D3) (Vitamin D3) 1,000 Unit Tablet, 1,000 UNITS PO DAILY Diltiazem Hcl (Cardizem Cd) 240 Mg Cap, 240 MG PO QHS Fluticasone/Vilanterol (Breo Ellipta 100-25 Mcg INH) 1 Inh Inh, 1 PUFF INH DAILY Tamsulosin Hcl (Tamsulosin HCl) 0.4 Mg Capsule, 0.4 MG PO QPM Scheduled PRN Albuterol Sulfate (Proventil Hfa) 108 Mcg/Act Aer, 2 PUFFS INH Q4H PRN for SOB/WHEEZING Albuterol Sulfate (Albuterol Sulfate) 2.5 Mg/0.5 Ml Vial.neb, 2.5 MG INH Q6H PRN for SHORTNESS OF BREATH Allergies Coded Allergies: clopidogrel (Unverified Allergy, Severe, DIFFICULTY BREATHING, 10/02/18) lisinopril (Unverified Allergy, Severe, ANAPHYLAXIS, 10/02/18) A-FIB/CHADSVASC A-FIB History Current/History of A-Fib/PAF?: No Current PO Anticoag Therapy: No Age/Risk Factor Scoring CHADSVASC: CHADSVASC Response (Comments) Value Age Risk Factor Age 65-74 years old 1 Gender Risk Factor Male 0 Hx of CHF No 0 Hx of HTN No 0 Hx of Stroke/TIA/or VTE Yes 2 Hx of Diabetes No 0 Hx of Vascular Disease No 0 Total 3 Treatment Treatment ordered: Other Other anticoagulant ordered: Janay Odonnell MD Mar 17, 2020 07:01
[2020-03-17] MEDS: ENOXAPARIN 40MG/0.4ML SYRINGE (J1650 PER 10MG) SC SCH (08:31)
[2020-03-17] MEDS: ASPIRIN 325 MG TAB PO SCH (08:31)
[2020-03-17] MEDS ORDERED: amLODIPine 10 MG TAB PO SCH (09:00)
--- NOTE | 2020-03-17 11:44 | REPVR ---
PROCEDURE INFORMATION: Exam: MR Head Without Contrast Exam date and time: 03/17/2020 10:54 AM Age: 75 years old Clinical indication: Visual disturbance; Additional info: Monoccular vision loss, R/O CVA vs. TIA TECHNIQUE: Imaging protocol: MR of the head without contrast. COMPARISON: CT Head without contrast 03/17/2020 1:20 AM FINDINGS: Brain: There are at least 3 scattered, punctate foci of diffusion restriction involving the right parietal lobe. These are compatible with tiny infarcts. Mild diffuse volume loss is within the range of normal for patient age. There are foci of increased T2/FLAIR signal within the periventricular and subcortical white matter, nonspecific but typically small-vessel ischemia in this age group. Ventricles: Normal. No ventriculomegaly. Bones/joints: Unremarkable. Sinuses: Normal as visualized. No acute sinusitis. Mastoid air cells: Normal as visualized. No mastoid effusion. Orbits: Unremarkable. Soft tissues: Unremarkable. IMPRESSION: At least 3 scattered focal infarcts within the right parietal lobe. Electronically signed by: Danay Asher On 03/17/2020 11:44:34 AM
--- NOTE | 2020-03-17 11:48 | REPVR ---
PROCEDURE INFORMATION: Exam: MR Angiography Neck Without Contrast Exam date and time: 03/17/2020 10:54 AM Age: 75 years old Clinical indication: Visual disturbance; Sudden visual loss; Additional info: Monoccular vision loss, R/O CVA vs. TIA TECHNIQUE: Imaging protocol: Magnetic resonance angiography of the neck without contrast. 3D rendering (Not supervised by radiologist): MIP and/or 3D reconstructed images were created by the technologist. COMPARISON: CT ANGIO NECK 03/10/2017 6:07 PM FINDINGS: Image quality is degraded by motion. Right common carotid artery: No stenosis. No dissection or occlusion. Right internal carotid artery: No stenosis of the extracranial segment. No dissection or occlusion. Right external carotid artery: No stenosis. No dissection or occlusion of the origin. Right vertebral artery: There is loss of the normal right vertebral artery flow signal, worrisome for occlusion. Left common carotid artery: No stenosis. No dissection or occlusion. Left internal carotid artery: There 30% stenosis of the left internal carotid artery approximately 1 cm from its origin. Left external carotid artery: No stenosis. No dissection or occlusion of the origin. Left vertebral artery: No stenosis. No dissection or occlusion. IMPRESSION: 1. Occlusion of the right vertebral artery. 2. 30% stenosis of the proximal internal carotid artery. REFERENCES: NASCET CRITERIA. The degree of internal carotid artery stenosis is based on NASCET criteria. Normal is no stenosis. Mild is less than 50% stenosis. Moderate is 50-69% stenosis. Severe is 70% to 99% stenosis. Total occlusion is no detectable patent lumen. Electronically signed by: Danay Asher On 03/17/2020 11:47:53 AM
--- NOTE | 2020-03-17 11:54 | REPVR ---
PROCEDURE INFORMATION: Exam: MR Angiogram Head Without Contrast, Arteries Exam date and time: 03/17/2020 10:54 AM Age: 75 years old Clinical indication: Visual disturbance; Transient visual loss; Additional info: Monoccular vision loss, R/O CVA vs. TIA TECHNIQUE: Imaging protocol: MR angiogram head without contrast. Exam focused on the arteries. COMPARISON: CT ANGIO HEAD 03/10/2017 6:07 PM FINDINGS: ANTERIOR CIRCULATION: Right internal carotid artery: Intracranial segment is patent with no significant stenosis. No aneurysm. Right middle cerebral artery: No occlusion or significant stenosis. No aneurysm. Right anterior cerebral artery: No occlusion or significant stenosis. No aneurysm. Left internal carotid artery: Intracranial segment is patent with no significant stenosis. No aneurysm. Left middle cerebral artery: No occlusion or significant stenosis. No aneurysm. Left anterior cerebral artery: No occlusion or significant stenosis. No aneurysm. POSTERIOR CIRCULATION: Right vertebral artery: There is loss of the normal right vertebral artery flow signal, worrisome for stenosis/occlusion. There is recanalization just proximal to the basilar confluence. Left vertebral artery: No occlusion or significant stenosis. No aneurysm. Basilar artery: No occlusion or significant stenosis. Right posterior cerebral artery: No occlusion or significant stenosis. No aneurysm. Left posterior cerebral artery: No occlusion or significant stenosis. No aneurysm. 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 Electronically signed by: Danay Asher On 03/17/2020 11:53:46 AM
--- NOTE | 2020-03-17 12:42 | REPVR ---
PROCEDURE INFORMATION: Exam: US Duplex Lower Extremity Veins, Bilateral Exam date and time: 03/17/2020 12:37 PM Age: 75 years old Clinical indication: Swelling (edema) of limb; Lower extremity, bilateral; Additional info: R/O dvt TECHNIQUE: Imaging protocol: Real-time duplex ultrasound of the extremities with 2-D butler scale, color Doppler flow and spectral waveform analysis with image documentation. Complete exam focused on the bilateral lower extremity veins. COMPARISON: No relevant prior studies available. FINDINGS: Right deep veins: Unremarkable. The common femoral, femoral, proximal profunda femoral and popliteal veins are patent without thrombus. Normal Doppler waveforms. Normal compressibility and/or augmentation response. Right superficial veins: Saphenofemoral junction is patent without thrombus. Left deep veins: Unremarkable. The common femoral, femoral, proximal profunda femoral and popliteal veins are patent without thrombus. Normal Doppler waveforms. Normal compressibility and/or augmentation response. Left superficial veins: Saphenofemoral junction is patent without thrombus. Soft tissues: Unremarkable. IMPRESSION: No evidence of deep vein thrombosis. Electronically signed by: Danay Asher On 03/17/2020 12:42:19 PM
[2020-03-17 14:00] VITALS: BP 144/86
--- NOTE | 2020-03-17 15:01 | IPNPDOC ---
Text Note Date of Service The patient was seen on 03/17/20. NOTE S: The patient is a 75 year old male with a past pertinent history of 3 episodes of TIA's, who presented to the ED with transient monocular blindness. He was apparently alright on when he suddenly felt dizzy with visual blackouts. This episode lasted for half an hour and resolved completely after half an hour. Last night he was getting up to go to the bathroom and he felt completely blind in the Rt eye, all of a sudden . He had no headaches, nausea, weakness, loss of consciousness, vertigo, tinnitus ,seizures, slurring of speech ,confusion . His past episodes happened in November and December of this year. The last two times he had left sided weakness which completely resolved. Today he states that he is feeling better and his vision is getting better where he could only appreciate darkness but now he can see shadows moving. O: GENERAL: He looks comfortable lying in bed with no acute distress. HEENT: AT/NC. EOMI. mucous membranes moist. CVS: RRR, S1,S2 normal, no murmurs or rubs RESPIRATORY: Clear to auscultation with no wheezing, rhonchi but some Crackles on B/L bases. ABDOMEN: Soft, non distended, non tender in all quadrants , bowel sounds normal. MUSCULOSKELETAL: Normal range of motion in all joints. NEURO:Grade 5/5 motor strength, Sensations intact Eyes:Right eye: Visual deficit in his right eye, failed the finger counting test. says he can only appreciate shadows moving . Left eye: Normal in all the rice. A & P : The patient is a 75 year old male with past history of TIA's, vascular occlusion, HTN,COPD who presented with a sudden onset loss of monocular vision on the right side, found to have a normal CT head , Normal CT angio, past history of vascular occlusion in his Rt arm most likely because of: # TIA/ Amaurosis Fugax :( most likely secondary to his atherosclerotic vessel disease v/s CVA): -Pt has a CHADVASc OF 3( HIGH RISK). -Aspirin 325 continued. -Plavix avoided. The patient has an acute anaphylactic reaction with Plavix as per the patient. -An ECHO was ordered. -MRI carotid shows: 1. Occlusion of the right vertebral artery.2. 30% stenosis of the proximal internal carotid artery. 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 -MRI Brain: At least 3 scattered focal infarcts within the right parietal lobe. -TSH ordered -Neurology consulted.- Dr Castaneda also recommends continuing Aspirin as of now and to follow up with him in his outpatient office. -Opthalmology office was contacted and they said that there is no Opthalmology coverage for inpatient from both optho offices. Plan is to send patient for a fo llow up outpatient. - EKG was normal. - Showed sinus rhythm. - Troponin negative. - Plan is to monitor his vitals, - neuro checks every 4 hours - fall precaution. #Discrepency in BP on both arms: - because of his arterial stenosis in Rt arm. - Pt already follows up with Vascular surgery for his vasoocclusive disease outpatient. # COPD: -Continue home medications # HTN: - hold atorvastatin for Permissive hypertension . -Continue Diltiazem. # CAD -Stable. -C/w home medications # DVT Prophylaxis: Pt is on Lovenox. VS,Fishbone, I+O VS, Fishbone, I+O Laboratory Tests 03/17/20 01:59 03/17/20 06:00 Vital Signs Date Time Temp Pulse Resp B/P (MAP) Pulse Ox O2 Delivery O2 Flow Rate FiO2 03/17/20 08:33 76 148/65 03/17/20 04:39 18 98 Room Air 03/17/20 02:12 98.1 GME ATTESTATION GME ATTESTATION My faculty preceptor for this patient encounter was physically present during the encounter and was fully available. All aspects of the patient interview, examination, medical decision making process, and medical care plan development were reviewed and approved by the faculty preceptor. The faculty preceptor is aware and concurs with the plan as stated in the body of this note and will attest to such by his/her cosignature. ATTENDING NOTE Pt was seen and examined by me personally with the residents/students. Agree with the above assessment plan. Devi Cummings MD Mar 17, 2020 15:01 BRUNA SPRAGUE MD Mar 28, 2020 10:26
[2020-03-17] MEDS ORDERED: TAMSULOSIN 0.4 MG CAP PO SCH (18:00)
[2020-03-17 20:15] VITALS: BP 137/78
[2020-03-17] MEDS ORDERED: ATORVASTATIN 20 MG TAB PO SCH (21:00)
[2020-03-17 22:00] VITALS: BP 137/78
[2020-03-18] MEDS: IPRATROPIUM 0.5MG/ALBUTEROL 2.5MG INH SOL UD 3ML (DUONEB) NEB SCH ×3 (03:43→11:22)
[2020-03-18 06:00] VITALS: BP 118/67
[2020-03-18 06:01] LABS: HEMATOCRIT 36.6 % (42.0-52.0); MEAN CORPUSCULAR HEMOGLOBIN 30.8 pg (27.0-33.0); MEAN CORPUSCULAR HGB CONC 32.8 g/dl (32.0-36.5); MEAN CORPUSCULAR VOLUME 94.1 fl (80.0-96.0); PLATELET COUNT, AUTOMATED 243 10^3/uL (150-450); RED BLOOD COUNT 3.89 10^6/uL (4.30-6.10); WHITE BLOOD COUNT 6.9 10^3/uL (4.0-10.0)
[2020-03-18 06:36] LABS: ALBUMIN 3.1 GM/DL (3.2-5.2); ALT/SGPT 29 U/L (12-78); BILIRUBIN,TOTAL 0.4 MG/DL (0.2-1.0); BLOOD UREA NITROGEN 24 MG/DL (7-18); CALCIUM LEVEL 8.9 MG/DL (8.8-10.2); CARBON DIOXIDE LEVEL 28 MEQ/L (21-32); CHLORIDE LEVEL 109 MEQ/L (98-107); CREATININE FOR GFR 1.06 MG/DL (0.70-1.30); GLOMERULAR FILTRATION RATE > 60.0 (>42); GLUCOSE, FASTING 99 MG/DL (70-100); POTASSIUM SERUM 4.2 MEQ/L (3.5-5.1); SODIUM LEVEL 142 MEQ/L (136-145)
[2020-03-18] MEDS: ASPIRIN 325 MG TAB PO SCH (09:20)
[2020-03-18] MEDS: ENOXAPARIN 40MG/0.4ML SYRINGE (J1650 PER 10MG) SC SCH (09:21)
--- NOTE | 2020-03-18 13:58 | ECHO ---
DATE OF PROCEDURE: 03/17/2020 Age: 75 Gender: Height: 168 cm Weight: 86 kg REFERRING PHYSICIAN: Dr. Evy Pinzon INDICATION: Transient cerebral ischemia, unspecified. MEASUREMENTS: 2D Measurements: Intraventricular septum 1.31 cm Posterior wall 1.20 cm Left ventricle diastole 4.6 cm Aortic root 3.3 cm Left atrium 3.3 cm Left atrial volume index 31 Inferior vena cava 1.27 cm with more than 50% respiratory variation Doppler Measurements: No aortic stenosis No aortic regurgitation Aortic valve velocity 169 cm/s LVOT velocity 135 cm/s LVOT VTI 29.3 cm No mitral stenosis No mitral regurgitation Mitral E velocity 64.0 cm/s Mitral A velocity 89.2 cm/s Mitral deceleration 280 msec No tricuspid regurgitation No pulmonic regurgitation Pulmonary acceleration time 114 msec MITRAL ANNULAR TISSUE DOPPLER E prime lateral 8.1 cm/s, E prime septal 5.4 cm/s DESCRIPTION: Rhythm was sinus. Image quality was adequate. No pericardial effusion. This was a 2D, M-mode, color flow Doppler, and pulsed wave Doppler examination including mitral annular tissue Doppler. CONCLUSIONS: 1. Status post interatrial septum disc occluded device. Bubble study negative for detection of [id number] intracardiac or intrapulmonary shunting. 2. Hyperdynamic LV systolic function. LVEF 75% by visual estimate. Mild concentric left ventricular hypertrophy. Grade 1 LV diastolic dysfunction (impaired relaxation filling pattern). 3. Mild left atrial dilatation by left atrial volume index. 4. Mild right ventricle hypertrophy. Normal RV systolic function. Normal RV size. 5. Otherwise normal appearing echocardiogram Doppler findings. [facility]
--- NOTE | 2020-03-18 16:34 | DS.PDOC ---
Discharge Summary General Date of Admission Mar 17, 2020 at 03:47 Date of Discharge 03/18/20 Attending Physician: BRUNA SPRAGUE MD Discharge Summary PROCEDURES PERFORMED DURING STAY: [None]. ADMITTING DIAGNOSES/DISCHARGE DIAGNOSES: 1. Amaurosis fugax. COMPLICATIONS/CHIEF COMPLAINT: Monocular Vision Loss, TIA. HISTORY OF PRESENT ILLNESS: The patient is a 75-year-old male with a past pertinent history of 3 episodes of TIAs who presented to the emergency department with transient monocular blindness he was apparently all right on when he suddenly felt dizzy with visual blackouts this episode lasted for half an hour and resolved completely after last night he was getting up to the bathroom and he felt completely blind in the right eye. He denies any headaches loss of consciousness weakness nausea were [employer]co tinnitus seizures slurring of speech or confusion. HOSPITAL COURSE/DISCHARGE PLAN: The patient presented to the emergency department with sudden onset of right monocular blindness which was not associated with any headaches nausea and weakness loss of consciousness, no seizures /slurring of speech or confusion. Patient was put on aspirin 325 mg and IV Enoxaparin,which was discontinued later. In the meantime CT head was ordered which was normal. MRI carotid showed occlusion of right vertebral artery 30% stenosis of the proximal internal carotid artery MRA without contrast was done which showed occlusion of the right vertebral artery with distal recanalization and MRI brain was done which showed at least 3 scattered focal infarcts within the right parietal lobe. Troponin was low. EKG was normal showed sinus rhythm ,his vitals were monitored every hour, neuro checks every 4 hours patient put on fall precautions. Neurology was consulted who passed on their recommendations and asked the patient to follow-up with them outpatient.Ophthalmology was consulted since they don't have any inpatient coverage they were unable to see the patient in the hospital and the patient referred to follow-up ophthalmology as an outpatient. The patient's blood pressure was staying on the lower side so amlodipine was kept on hold to allow permissive hypertension due to underlying vaso-occlusive disease. The patient continued to have normal blood pressures status post 24 hours without antihypertensives and is advised to stay off it on discharge. Patient advised to follow-up and adjust the dosage of his blood pressure medications with his PCP in 7 days. Diltiazem was continued for his COPD we advise continuing home medication patient was saturating perfectly well in the hospital. DISCHARGE MEDICATIONS: Please see below. ALLERGIES: Please see below. PHYSICAL EXAMINATION ON DISCHARGE: VITAL SIGNS: Please see below. GENERAL: He looks comfortable lying in bed with no acute distress. HEENT: AT/NC. EOMI. mucous membranes moist. CVS: RRR, S1,S2 normal, no murmurs or rubs RESPIRATORY: Clear to auscultation with no wheezing, rhonchi but some Crackles on B/L bases. ABDOMEN: Soft, non distended, non tender in all quadrants , bowel sounds normal. MUSCULOSKELETAL: Normal range of motion in all joints. NEURO:Grade 5/5 motor strength, Sensations intact EYE:Right eye: Visual deficit in his right eye, past the finger counting test today. Progressively getting better. Left eye: Normal in all the rice. LABORATORY DATA: Please see below. IMAGING: At least 3 scattered focal infarcts within the right parietal lobe. PROGNOSIS: Fair ACTIVITY: [As tolerated]. DIET: As tolerated (low in cholesterol) DISPOSITION: The patient is medically stable his vision is progressively improving he has no neurologic deficits should be okay to go home and follow ophthalmology and Neurology as outpatient. DISCHARGE INSTRUCTIONS: #1. Continue taking aspirin as advised #2 follow-up PCP in the next 7 days #3 follow-up with ophthalmology outpatient. #4 follow-up with neurology outpatient soon. DISCHARGE CONDITION: [Stable]. TIME SPENT ON DISCHARGE: Greater than 40 minutes. Vital Signs/I&Os Vital Signs Date Time Temp Pulse Resp B/P (MAP) Pulse Ox O2 Delivery O2 Flow Rate FiO2 03/18/20 06:00 97.7 74 18 118/67 (84) 96 Room Air I&O- Last 24 Hours up to 6 AM 03/18/20 06:00 Intake Total 2425 ml Output Total 775 ml Balance 1650 ml Laboratory Data Labs 24H Laboratory Tests 2 03/18/20 05:50: Nucleated Red Blood Cells % (auto) 0.0, Anion Gap 5L, Glomerular Filtration Rate > 60.0, Calcium Level 8.9, Total Bilirubin 0.4, Aspartate Amino Transf (AST/SGOT) 11, Alanine Aminotransferase (ALT/SGPT) 29, Alkaline Phosphatase 61, Total Protein 6.0L, Albumin 3.1L, Albumin/Globulin Ratio 1.1 CBC/BMP Laboratory Tests 03/18/20 05:50 Discharge Medications Scheduled Alendronate Sodium (Alendronate Sodium) 70 Mg Tab, 70 MG PO QWEEK, (Reported) SUNDAYS Aspirin (Aspirin) 325 Mg Tablet, 325 MG PO DAILY, (Reported) Atorvastatin Calcium (Atorvastatin Calcium) 40 Mg Tab, 40 MG PO QHS, (Reported) Calcium Carbonate (Calcium) 600 Mg Tablet, 600 MG PO DAILY, (Reported) Cholecalciferol (Vitamin D3) (Vitamin D3) 1,000 Unit Tablet, 1,000 UNITS PO DAILY, (Reported) Diltiazem Hcl (Cardizem Cd) 240 Mg Cap, 240 MG PO QHS, (Reported) Fluticasone/Vilanterol (Breo Ellipta 100-25 Mcg INH) 1 Inh Inh, 1 PUFF INH DAILY, (Reported) Tamsulosin Hcl (Tamsulosin HCl) 0.4 Mg Capsule, 0.4 MG PO QPM, (Reported) Scheduled PRN Albuterol Sulfate (Proventil Hfa) 108 Mcg/Act Aer, 2 PUFFS INH Q4H PRN for SOB/WHEEZING, (Reported) Albuterol Sulfate (Albuterol Sulfate) 2.5 Mg/0.5 Ml Vial.neb, 2.5 MG INH Q6H PRN for SHORTNESS OF BREATH, (Reported) Allergies Coded Allergies: clopidogrel (Unverified Allergy, Severe, DIFFICULTY BREATHING, 10/02/18) lisinopril (Unverified Allergy, Severe, ANAPHYLAXIS, 10/02/18) GME ATTESTATION GME ATTESTATION My faculty preceptor for this patient encounter was physically present during the encounter and was fully available. All aspects of the patient interview, examination, medical decision making process, and medical care plan development were reviewed and approved by the faculty preceptor. The faculty preceptor is aware and concurs with the plan as stated in the body of this note and will attest to such by his/her cosignature. ATTENDING NOTE Pt was seen and examined by me personally with the residents/students. Agree with the above assessment plan. Devi Cummings MD Mar 18, 2020 10:51 BRUNA SPRAGUE MD Mar 28, 2020 10:28
--- NOTE | 2020-03-20 08:02 | ER ---
DATE OF CONSULTATION: 03/17/20 REFERRING PHYSICIAN: Dr. Janay Linares REASON FOR CONSULTATION: Right eye vision loss. HISTORY OF PRESENT ILLNESS: hPong Castro is a 75-year-old man with a history of transient ischemic attack (TIA) in past, coronary artery disease, chronic obstructive pulmonary disease (COPD), peripheral arterial disease, patent foramen ovale (PFO) status post closure in 2018, who had an episode of problem with vision in both eyes when he went to the store on 03/13/2020, which lasted for 1 hour. It appeared as if sun was too bright, and he had difficulty with his vision in both eyes. It improved after 1 hour. He went to sleep yesterday around 8 p.m. and woke up around 11 p.m. at night and was unable to see with his right eye. There was no eye pain or headache. There was no trouble with his speech, balance, numbness or weakness of arms and legs. There was no headache. Vision loss in right eye persists today. He denies any headaches, neck pain, back pain, dysphagia, dysarthria, diplopia, urinary incontinence, falls, loss of consciousness, or head injuries. DIAGNOSTIC STUDIES: MRI scan of brain showed three small right parietal lacunar strokes. MRA brain and neck showed right vertebral artery occlusion and 30% right internal carotid artery stenosis. Ultrasound of legs did not reveal any deep venous thrombosis (DVT). MEDICAL HISTORY: 1. TIA three times in past. 2. Patient had PFO found and closed in 2018. 3. Coronary artery disease. 4. COPD. 5. Rotator cuff tear. 6. Peripheral arterial disease affecting right arm, for which patient follows with vascular surgery due to different blood pressures in arms. 7. History of renal cell carcinoma status post right nephrectomy. 8. Osteoarthritis. 9. Hypertension. 10. Right kidney biopsy. 11. Right nephrectomy. 12. Back surgery twice. 13. Hernia repair. 14. Right testicular removal. SOCIAL HISTORY: He smoked half pack per day for 50 years and quit in 2018. He drinks one beer a day. He denies illicit drugs and lives alone. FAMILY HISTORY: Parents with coronary artery disease. REVIEW OF SYSTEMS: All systems were reviewed and found to be noncontributory except as mentioned in history of present illness. ALLERGIES: PLAVIX, which caused difficulty breathing. LISINOPRIL caused anaphylaxis. HOME MEDICATIONS: - alendronate 70 mg by mouth once a week - amlodipine 10 mg by mouth daily - aspirin 325 mg by mouth daily - Lipitor 40 mg by mouth daily - calcium carbonate 600 mg by mouth daily - diltiazem 240 mg by mouth daily - Breo Ellipta one inhalation daily - Flomax 0.4 mg by mouth daily - atorvastatin 40 mg by mouth daily PHYSICAL EXAMINATION: Temperature 98.2, pulse 77, respiratory rate 18, blood pressure 144/86, 96% saturation in room air. HEART: Regular rate and rhythm. LUNGS: Clear to auscultation. ABDOMEN: Soft, nontender, nondistended. No pedal edema. Musculoskeletal abnormalities. No rash. No signs of meningeal irritation. No tremor, nystagmus, or dysmetria. Patient is awake, alert, oriented to person, place, and time. Normal speech, comprehension, and repetition. Extraocular muscles are intact. No facial weakness. Tongue and uvula are midline. Right eye vision is reduced to counting fingers and is able to see only large objects with corner of his right eye. Visual field is reduced in right eye. Left eye visual field is normal. Strength 5/5 in all four extremities. Deep tendon reflexes are 1+ throughout. Normal sensation throughout. Gait is normal. LABORATORY STUDIES: ESR was 25, CRP was less than 0.3 with normal comprehensive metabolic profile (CMP). Hemoglobin was 12 with platelet count 266. ASSESSMENT: 1. 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 2. Three small right parietal lacunar strokes, which would not explain right eye vision loss. 3. Occlusion of right vertebral artery, which is chronic, and 30% right internal carotid artery stenosis. 4. History of peripheral arterial disease, coronary artery disease, and patent foramen ovale (PFO), which was closed in 2018. PLAN: 1. Patient should be seen by ophthalmology. If it cannot be arranged inpatient, he should follow on outpatient basis. 2. Aspirin 325 mg by mouth daily, and we cannot add Plavix, as he became short of breath due to Plavix in past. Continue Lipitor 40 mg by mouth daily. 3. Follow with cardiology and vascular surgery. 4. Follow with us in 1-2 weeks after hospital discharge. CAMILO
--- NOTE | 2020-03-21 12:15 | ECGEPIP ---
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
== END 2020-03-18 11:37 | disposition home or self-care (01) | DRG 123 ==
LOC: M ED 00:19 → M ED INP 03:47 → ENRESERV 04:28 → M MSPAV 05:00
PROVIDERS: ADMIT Internal Medicine; ATTEND Internal Medicine
DX: G45.3 Amaurosis fugax (principal); I63.59 Cerebral infarction due to unspecified occlusion or stenosis of other cerebral artery; H47.011 Ischemic optic neuropathy, right eye; I65.01 Occlusion and stenosis of right vertebral artery; J44.9 Chronic obstructive pulmonary disease, unspecified; I25.10 Atherosclerotic heart disease of native coronary artery without angina pectoris; M62.81 Muscle weakness (generalized); I73.9 Peripheral vascular disease, unspecified; M19.90 Unspecified osteoarthritis, unspecified site; I10 Essential (primary) hypertension; Z85.528 Personal history of other malignant neoplasm of kidney; Z90.5 Acquired absence of kidney; Z87.891 Personal history of nicotine dependence; Z79.82 Long term (current) use of aspirin; Z88.8 Allergy status to other drugs, medicaments and biological substances; Z79.899 Other long term (current) drug therapy

== ENCOUNTER → 2020-03-29 | Outpatient (CLI) | payer MEDICARE, OTHER ==
[~2020-03-29] MED LIST changes: +CEPH500C PO; +D31000TA2 PO; +OMEP40CA97 PO; +SUCR1TA PO
[2020-03-29 18:41] LABS: BASO % 0.4 % (0.0-1.0); EOS # 0.1 10^3/uL (0.0-0.5); EOS % 1.5 % (0.0-3.0); HEMATOCRIT 41.8 % (42.0-52.0); LYMPH # 0.9 10^3/uL (1.5-5.0); MEAN CORPUSCULAR HEMOGLOBIN 30.2 pg (27.0-33.0); MEAN CORPUSCULAR HGB CONC 31.1 g/dl (32.0-36.5); MONO # 0.8 10^3/uL (0.0-0.8); MONO % 10.8 % (0.0-5.0); NEUTROPHILS # 5.3 10^3/uL (1.5-8.5); NEUTROPHILS % 74.6 % (36.0-66.0); PLATELET COUNT, AUTOMATED 236 10^3/uL (150-450); RED BLOOD COUNT 4.31 10^6/uL (4.30-6.10); WHITE BLOOD COUNT 7.1 10^3/uL (4.0-10.0)
[2020-03-29 19:08] LABS: ALBUMIN 3.4 GM/DL (3.2-5.2); ALT/SGPT 29 U/L (12-78); BILIRUBIN,TOTAL 0.5 MG/DL (0.2-1.0); BLOOD UREA NITROGEN 19 MG/DL (7-18); CALCIUM LEVEL 9.4 MG/DL (8.8-10.2); CARBON DIOXIDE LEVEL 29 MEQ/L (21-32); CHLORIDE LEVEL 107 MEQ/L (98-107); CREATININE FOR GFR 1.06 MG/DL (0.70-1.30); GLOMERULAR FILTRATION RATE > 60.0 (>42); GLUCOSE, FASTING 88 MG/DL (70-100); LIPASE 172 U/L (73-393); POTASSIUM SERUM 4.6 MEQ/L (3.5-5.1); SODIUM LEVEL 139 MEQ/L (136-145); TOTAL PROTEIN 6.4 GM/DL (6.4-8.2)
== END ==
LOC: M WUC 08:45
PROVIDERS: ATTEND Physician Assistant
DX: R10.10 Upper abdominal pain, unspecified (principal)

== ENCOUNTER 2020-05-02 20:46 | Emergency (ER) | payer MEDICARE, OTHER ==
[~2020-05-02] VITALS: Ht 167.6 cm; Wt 91.1 kg
[~2020-05-02 20:46] MED LIST changes: -CEPH500C PO; -OMEP40CA97 PO; -SUCR1TA PO
[2020-05-02] MEDS ORDERED: SUCR1TA PO (21:21)
[2020-05-02] MEDS ORDERED: OMEP40CA97 PO (21:22)
[2020-05-02] MEDS ORDERED: NS 1,000 ML IV SCH (21:28)
[2020-05-02] MEDS ORDERED: ASPIRIN 81 MG CHEW TABLET PO ONE (21:30)
[2020-05-02] MEDS ORDERED: GI COCKTAIL 50ML BTL(HYOSCYAMINE/MAALOX/LIDOCAINE VISCOUS)(1:3:1) PO ONE (21:30)
[2020-05-02 21:46] LABS: BASO % 0.7 % (0.0-1.0); EOS # 0.1 10^3/uL (0.0-0.5); EOS % 1.3 % (0.0-3.0); HEMATOCRIT 37.9 % (42.0-52.0); HEMOGLOBIN 11.9 g/dl (13.5-17.5); LYMPH # 0.8 10^3/uL (1.5-5.0); LYMPH % 14.6 % (24.0-44.0); MEAN CORPUSCULAR HEMOGLOBIN 28.7 pg (27.0-33.0); MEAN CORPUSCULAR HGB CONC 31.4 g/dl (32.0-36.5); MEAN CORPUSCULAR VOLUME 91.3 fl (80.0-96.0); MONO # 0.6 10^3/uL (0.0-0.8); MONO % 11.6 % (0.0-5.0); NEUTROPHILS # 3.9 10^3/uL (1.5-8.5); NEUTROPHILS % 71.2 % (36.0-66.0); PLATELET COUNT, AUTOMATED 213 10^3/uL (150-450); RED BLOOD COUNT 4.15 10^6/uL (4.30-6.10); WHITE BLOOD COUNT 5.4 10^3/uL (4.0-10.0)
--- NOTE | 2020-05-02 21:53 | REPVR ---
PROCEDURE INFORMATION: Exam: XR Chest, 1 View Exam date and time: 05/02/2020 9:45 PM Age: 75 years old Clinical indication: Other: Chest pain TECHNIQUE: Imaging protocol: XR of the chest Views: 1 view. COMPARISON: CR PORTABLE CHEST X-RAY 03/17/2020 1:30 AM FINDINGS: Lungs: Degree of lung inflation is normal. No evidence of pulmonary edema. No focal consolidation or parenchymal lung mass. Pleural space: No pleural effusion or pneumothorax. Heart/Mediastinum: Cardiac silhouette appears normal. No adenopathy or hilar mass. Bones/joints: Osseous structures show no concerning abnormality. IMPRESSION: No acute or focal cardiopulmonary process. Electronically signed by: Jameel Ogden On 05/02/2020 21:53:12 PM
[2020-05-02 21:56] LABS: INR 0.96
[2020-05-02 22:12] LABS: ALBUMIN 3.8 GM/DL (3.2-5.2); ALT/SGPT 22 U/L (12-78); BILIRUBIN,DIRECT 0.1 MG/DL (0.0-0.2); BILIRUBIN,TOTAL 0.3 MG/DL (0.2-1.0); BLOOD UREA NITROGEN 16 MG/DL (7-18); CALCIUM LEVEL 8.7 MG/DL (8.8-10.2); CARBON DIOXIDE LEVEL 26 MEQ/L (21-32); CHLORIDE LEVEL 108 MEQ/L (98-107); CPK CREATINE PHOSPHOKINASE 58 U/L (39-308); CREATININE FOR GFR 1.17 MG/DL (0.70-1.30); GLOMERULAR FILTRATION RATE > 60.0 (>42); GLUCOSE, FASTING 95 MG/DL (70-100); LIPASE 203 U/L (73-393); MB/CK RELATIVE INDEX 3.45 (< OR =4); SODIUM LEVEL 141 MEQ/L (136-145); TOTAL PROTEIN 6.7 GM/DL (6.4-8.2); TROPONIN I < 0.02 NG/ML (< 0.10)
[2020-05-02 22:37] VITALS: BP 123/77
--- NOTE | 2020-05-03 08:01 | ECGEPIP ---
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
== END 2020-05-02 22:40 | disposition home or self-care (01) ==
LOC: M ED 20:46
DX: K21.00 Gastro-esophageal reflux disease with esophagitis, without bleeding (principal); I10 Essential (primary) hypertension; E78.5 Hyperlipidemia, unspecified; J44.9 Chronic obstructive pulmonary disease, unspecified; N28.9 Disorder of kidney and ureter, unspecified; Z79.899 Other long term (current) drug therapy; Z79.82 Long term (current) use of aspirin; Z88.8 Allergy status to other drugs, medicaments and biological substances

== ENCOUNTER 2020-05-08 18:10 | Emergency (ER) | payer MEDICARE, OTHER ==
[~2020-05-08] VITALS: Ht 165.1 cm; Wt 89.0 kg
[~2020-05-08 18:10] MED LIST changes: +OMEP40CA97 PO; +SUCR1TA PO
[2020-05-08] MEDS ORDERED: CEPH500C PO (18:32)
[2020-05-08 18:36] LABS: BASO % 0.1 % (0.0-1.0); EOS % 0.1 % (0.0-3.0); HEMATOCRIT 39.9 % (42.0-52.0); HEMOGLOBIN 12.9 g/dl (13.5-17.5); LYMPH # 0.5 10^3/uL (1.5-5.0); LYMPH % 7.2 % (24.0-44.0); MEAN CORPUSCULAR HEMOGLOBIN 29.7 pg (27.0-33.0); MEAN CORPUSCULAR HGB CONC 32.3 g/dl (32.0-36.5); MEAN CORPUSCULAR VOLUME 91.7 fl (80.0-96.0); MONO # 0.7 10^3/uL (0.0-0.8); MONO % 9.8 % (0.0-5.0); NEUTROPHILS % 82.3 % (36.0-66.0); PLATELET COUNT, AUTOMATED 232 10^3/uL (150-450); RED BLOOD COUNT 4.35 10^6/uL (4.30-6.10); WHITE BLOOD COUNT 7.3 10^3/uL (4.0-10.0)
[2020-05-08] MEDS ORDERED: ASPIRIN 81 MG CHEW TABLET PO ONE (18:45)
[2020-05-08 18:49] LABS: INR 0.97; PROTHROMBIN TIME 13.1 SECONDS (12.5-14.3)
[2020-05-08] MEDS: NITROGLYCERIN 0.4 MG SUBL TABLET SL PRN ×5 (18:51→21:18)
--- NOTE | 2020-05-08 18:58 | REP ---
INDICATION: CHEST PAIN. COMPARISON: Comparison chest x-ray May 02, 2020. Comparison chest CT study December 21, 2019. TECHNIQUE: Two views.. FINDINGS: The lungs are symmetrically aerated and free of infiltrate. Pleural angles are sharp. Heart is not felt to be enlarged. An atrial septal defect closure device is visible within the heart unchanged from previous CT study December 21, 2019. Pulmonary vasculature is not increased. No infiltrate is seen. There is diffuse osteopenia and there is mild anterior wedging in 2 of the mid and lower thoracic vertebrae. This is unchanged from multiplanar reformations images taken during CT study December 21, 2019. Monitoring electrodes are noted. Vascular calcification is visible. IMPRESSION: Status post atrial septal defect closure device placement within the heart. Otherwise no acute cardiopulmonary disease.. <Electronically signed by James Nova > 05/08/20 [id number]
[2020-05-08 19:09] LABS: ALBUMIN 4.1 GM/DL (3.2-5.2); ALT/SGPT 20 U/L (12-78); BILIRUBIN,DIRECT 0.2 MG/DL (0.0-0.2); BILIRUBIN,TOTAL 0.5 MG/DL (0.2-1.0); BLOOD UREA NITROGEN 20 MG/DL (7-18); CALCIUM LEVEL 9.3 MG/DL (8.8-10.2); CARBON DIOXIDE LEVEL 28 MEQ/L (21-32); CHLORIDE LEVEL 104 MEQ/L (98-107); CK-MB VALUE MASS 2.9 NG/ML (<3.6); CPK CREATINE PHOSPHOKINASE 90 U/L (39-308); CREATININE FOR GFR 1.19 MG/DL (0.70-1.30); FREE T4 1.24 NG/DL (0.76-1.46); GLOMERULAR FILTRATION RATE > 60.0 (>42); GLUCOSE, FASTING 113 MG/DL (70-100); LIPASE 129 U/L (73-393); MB/CK RELATIVE INDEX 3.22 (< OR =4); POTASSIUM SERUM 4.5 MEQ/L (3.5-5.1); SODIUM LEVEL 138 MEQ/L (136-145); TOTAL PROTEIN 7.3 GM/DL (6.4-8.2); TROPONIN I < 0.02 NG/ML (< 0.10)
[2020-05-08] MEDS ORDERED: CLOPIDOGREL 300 MG TAB (PLAVIX) PO STA (19:16)
[2020-05-08] MEDS ORDERED: HEPARIN DRIP 25,000 UNITS in IV 1 EA IV SCH (19:30)
[2020-05-08] MEDS ORDERED: HEPARIN SOD (PORCINE) 5000UNITS/ML 1ML VIAL/SYRINGE IV ONE (19:30)
[2020-05-08 21:18] VITALS: BP 132/60
[2020-05-08] MEDS ORDERED: MORPHINE 4 MG/ML 1ML VIAL/SYRINGE (J2270) IV ONE (21:30)
[2020-05-08 22:00] VITALS: BP 147/64
--- NOTE | 2020-05-09 10:08 | ECGEPIP ---
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
== END 2020-05-08 22:09 | disposition short-term general hospital (02) ==
LOC: M ED 18:10
DX: I20.0 Unstable angina (principal); I10 Essential (primary) hypertension; J44.9 Chronic obstructive pulmonary disease, unspecified; M19.90 Unspecified osteoarthritis, unspecified site; Z88.8 Allergy status to other drugs, medicaments and biological substances; Z79.899 Other long term (current) drug therapy; Z79.82 Long term (current) use of aspirin; Z87.891 Personal history of nicotine dependence
CPT/HCPCS: 71046; 80048; 80076; 82550; 82553; 83690; 84439; 84443; 84484; 85025; 85610; 85730; 93005; 93041; 94760; 96365; 96366; 96375; 99291; J1644; U0002

== ENCOUNTER 2020-06-04 16:06 | Emergency (ER) | payer MEDICARE, OTHER ==
[~2020-06-04] VITALS: Ht 167.6 cm; Wt 86.8 kg
[~2020-06-04 16:06] MED LIST changes: +CEPH500C PO
[2020-06-04] MEDS ORDERED: SUCR1TAB56 PO (16:40)
[2020-06-04] MEDS ORDERED: CLOP75TA2 PO (16:40)
[2020-06-04] MEDS ORDERED: ISOS60TA2 PO (16:40)
[2020-06-04] MEDS ORDERED: DILT240C83 PO (16:40)
[2020-06-04 17:11] LABS: BASO % 0.8 % (0.0-1.0); EOS # 0.2 10^3/uL (0.0-0.5); EOS % 5.1 % (0.0-3.0); HEMATOCRIT 36.2 % (42.0-52.0); HEMOGLOBIN 11.6 g/dl (13.5-17.5); LYMPH # 0.7 10^3/uL (1.5-5.0); LYMPH % 17.3 % (24.0-44.0); MEAN CORPUSCULAR HEMOGLOBIN 28.8 pg (27.0-33.0); MEAN CORPUSCULAR VOLUME 89.8 fl (80.0-96.0); MONO # 0.6 10^3/uL (0.0-0.8); MONO % 14.8 % (0.0-5.0); NEUTROPHILS # 2.4 10^3/uL (1.5-8.5); NEUTROPHILS % 61.2 % (36.0-66.0); PLATELET COUNT, AUTOMATED 179 10^3/uL (150-450); RED BLOOD COUNT 4.03 10^6/uL (4.30-6.10); WHITE BLOOD COUNT 3.9 10^3/uL (4.0-10.0)
[2020-06-04 17:39] LABS: ALBUMIN 3.2 GM/DL (3.2-5.2); ALT/SGPT 20 U/L (12-78); BILIRUBIN,DIRECT < 0.1 MG/DL (0.0-0.2); BILIRUBIN,TOTAL 0.3 MG/DL (0.2-1.0); BLOOD UREA NITROGEN 20 MG/DL (7-18); CALCIUM LEVEL 8.9 MG/DL (8.8-10.2); CARBON DIOXIDE LEVEL 30 MEQ/L (21-32); CHLORIDE LEVEL 107 MEQ/L (98-107); CK-MB VALUE MASS < 1.0 NG/ML (<3.6); CPK CREATINE PHOSPHOKINASE 30 U/L (39-308); CREATININE FOR GFR 1.09 MG/DL (0.70-1.30); GLOMERULAR FILTRATION RATE > 60.0 (>42); GLUCOSE, FASTING 104 MG/DL (70-100); LIPASE 184 U/L (73-393); MB/CK RELATIVE INDEX 3.33 (< OR =4); POTASSIUM SERUM 3.7 MEQ/L (3.5-5.1); SODIUM LEVEL 141 MEQ/L (136-145); TOTAL PROTEIN 6.2 GM/DL (6.4-8.2); TROPONIN I < 0.02 NG/ML (< 0.10)
[2020-06-04] MEDS ORDERED: PANTOPRAZOLE 40MG VIAL (C9113 PER 1) IV ONE (18:15)
--- NOTE | 2020-06-04 18:37 | REP ---
INDICATION: CHEST PAIN. COMPARISON: Comparison chest x-ray May 08, 2020.. TECHNIQUE: Upright portable AP radiograph. FINDINGS: Monitoring electrodes are seen. Heart is not enlarged. Right lung is clear. The pleural angles are sharp bilaterally. There is hazy opacity in the left upper lobe region suggestive of an infiltrate. There is a skin fold over the lower lateral chest on the left. Vascular calcification is noted. Pulmonary vasculature is not increased. Lung rice are otherwise clear. IMPRESSION: Hazy opacity left upper lobe region consistent with infiltrate. Otherwise no acute disease. <Electronically signed by James Nova > 06/04/20 [id number]
[2020-06-04] MEDS ORDERED: GI COCKTAIL 50ML BTL(HYOSCYAMINE/MAALOX/LIDOCAINE VISCOUS)(1:3:1) PO ONE (19:15)
[2020-06-04] MEDS ORDERED: SUCRALFATE 1 GM TAB PO ONE (21:15)
[2020-06-04 22:36] LABS: CK-MB VALUE MASS 1.2 NG/ML (<3.6); CPK CREATINE PHOSPHOKINASE 24 U/L (39-308); TROPONIN I < 0.02 NG/ML (< 0.10)
[2020-06-04] MEDS ORDERED: ONDANSETRON 4MG/2ML VIAL IV ONE (23:00)
[2020-06-04] MEDS ORDERED: MORPHINE 4 MG/ML 1ML VIAL/SYRINGE (J2270) IV PRN (23:00)
--- NOTE | 2020-06-04 23:38 | REPVR ---
PROCEDURE INFORMATION: Exam: US Abdomen, Limited; Right Upper Quadrant Exam date and time: 06/04/2020 7:01 PM Age: 75 years old Clinical indication: Abdominal pain; Additional info: Ruq pain after eating TECHNIQUE: Imaging protocol: US abdomen. Real time ultrasound with image documentation. Limited exam focused on the right upper quadrant. COMPARISON: CT ABD PELVIS W/O CONTRAST 2019-02-02 11:10 FINDINGS: Liver: Echogenic fatty liver. Gallbladder: Contracted gallbladder with echogenic gallbladder wall foci, likely from gallbladder adenomyomatosis. Common bile duct: Normal. No stones. No dilation. Pancreas: Pancreas obscured by bowel gas. Right kidney: Right renal nephrectomy. IMPRESSION: 1. No acute findings. 2. Gallbladder adenomyomatosis. 3. Fatty liver. Electronically signed by: Bladimir Rose On 06/04/2020 23:38:26 PM
[2020-06-04] MEDS ORDERED: PEPC1TAB5 PO (23:59)
[2020-06-05] MEDS ORDERED: FAMOTIDINE 20 MG TAB PO ONE
[2020-06-05] MEDS ORDERED: IPRATROPIUM 0.5MG/ALBUTEROL 2.5MG INH SOL UD 3ML (DUONEB) NEB ONE
[2020-06-05 00:15] VITALS: BP 148/82
--- NOTE | 2020-06-06 07:58 | ECGEPIP ---
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
--- NOTE | 2020-06-06 08:00 | ECGEPIP ---
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
--- NOTE | 2020-06-06 11:01 | ED PDOC ---
Post-Departure Follow-Up dr leonora paez faxed formal report of us for fu Michelle Yadav MD Jun 06, 2020 11:01
--- NOTE | 2020-06-06 11:04 | ED PDOC ---
Post-Departure Follow-Up cxr also faxed to dr roland adam for fu Michelle Yadav MD Jun 06, 2020 11:04
== END 2020-06-05 00:25 | disposition home or self-care (01) ==
LOC: M ED 16:06
DX: R07.89 Other chest pain (principal); I10 Essential (primary) hypertension; J44.9 Chronic obstructive pulmonary disease, unspecified; E78.5 Hyperlipidemia, unspecified; Z79.899 Other long term (current) drug therapy; Z88.8 Allergy status to other drugs, medicaments and biological substances; Z87.891 Personal history of nicotine dependence
CPT/HCPCS: 71045; 76705; 80048; 80076; 82550; 82553; 83690; 84484; 85025; 93005; 93041; 94640; 94760; 96374; 99285; C9113

== ENCOUNTER → 2020-07-05 | Outpatient (CLI) | payer MEDICARE, OTHER ==
[~2020-07-05] MED LIST changes: +CLOP75TA2 PO; +DILT240C83 PO; +ISOS60TA2 PO; +PEPC1TAB5 PO; +SUCR1TAB56 PO
== END ==
LOC: M LABSMTC 10:19
PROVIDERS: ATTEND Anesthesiology
DX: Z20.828 Contact with and (suspected) exposure to other viral communicable diseases (principal)

== ENCOUNTER → 2020-08-08 | Outpatient (CLI) | payer MEDICARE, OTHER ==
[~2020-08-08] MED LIST changes: -ALEN70TA74 PO; +ALEN70TA82 PO; +ISOS1TAB36 PO; -ISOS60TA2 PO
--- NOTE | 2020-08-08 10:50 | REP ---
INDICATION: RUQ ABD PAIN. COMPARISON: Comparison study June 04, 2020.. TECHNIQUE: Right upper quadrant sonography. FINDINGS: Scanning through the right upper quadrant of the abdomen demonstrates a normal sized and walled gallbladder without evidence of stone or polyp. There are multiple echogenic foci again seen in the gallbladder wall consistent with adenomyomatosis unchanged. Common bile duct is normal measuring 6 mm in diameter. The liver is somewhat hyperechoic consistent with fatty infiltration. Pancreas is obscured by abdominal gas. The right kidney is surgically absent. There is no evidence of ascites.. IMPRESSION: Status post right nephrectomy. Evidence of gallbladder adenomyomatosis and fatty infiltration of the liver again seen.. <Electronically signed by James Nova > 08/08/20 [id number]
--- NOTE | 2020-08-08 13:07 | REP ---
INDICATION: RUQ ABD PAIN. COMPARISON: Comparison is made with imaging from CT angiography of the chest December 21, 2019.. TECHNIQUE: A noncontrast protocol MR angiography was attempted as requested. T1 and T2 weighted scans are acquired. Maximum intensity projection images are generated and attempted. Source 3D images are reviewed. FINDINGS: The study is generally of poor quality with motion on sharpness and lack of vascular labeling on this noncontrast study. However, we can see flow signal in the inferior mesenteric artery as it originates from the distal aorta. There is patency of the proximal celiac axis and SMA although atherosclerotic irregularity and stenosis of both of these visceral arteries is suspected. The left renal artery shows stenosis and atherosclerotic irregularity high-grade. The right renal artery is not seen consistent with occlusion. No aortic aneurysm or dissection is seen but aortic plaquing is noted along the the left wall. IMPRESSION: Generally poor quality imaging. 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 There is stenosis of the left ribs main renal artery. Flow signal is observed in the proximal LITA. <Electronically signed by James Nova > 08/08/20 [id number]
== END ==
LOC: M RAD 08:36
PROVIDERS: ATTEND Internal Medicine Gastroenterology
DX: I70.1 Atherosclerosis of renal artery (principal); R10.10 Upper abdominal pain, unspecified
CPT/HCPCS: 76705; C8901

== ENCOUNTER → 2020-09-02 | Outpatient (POV) | payer MEDICARE, OTHER ==
--- NOTE | 2020-09-04 13:24 | IRCOV ---
[facility] IR Consult Office Visit IR Consult Office Visit DATE: Sep 02, 2020 Patient agreed to this telephone consultation. I spent 30 Minutes reviewing patient's Records, imaging and talking to the patient. REASON FOR CONSULTATION/CHIEF COMPLAINT: Abdominal pain. HISTORY OF PRESENT ILLNESS: 75-year-old male complains of abdominal pain located in the upper abdomen and parasternal region in the chest, what he describes as "from his esophagus". He states his abdominal pain started in November 2019 and is getting worse and more frequent. The pain does not come on after eating but at random times. He states sometimes the pain comes on in the middle of the night at 2 in the morning when he had dinner at 5 PM the night before. He states sometimes a GI cocktail they give in the ER helps. He has presented to the ER 3 times with this pain. He denies acid reflux into the mouth. He does have a hiatal hernia. He takes tramadol which sometimes helps. He is on Protonix. Somet imes it is relieved by Maalox and sometimes it is worse. He does report 12 pounds weight loss over the past 6 months. He's had no upper endoscopy. He denies hematemesis or melena. He's had colonoscopies in the past where he's had polyps removed. He reports 2 heart attacks in the past, one occurred 30 years ago and the other one in May 2020 at which time he reports he had cardiac stents placed. He is on aspirin and Plavix. 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 The paralysis resolved however he still has problems in the right eye. He denies diabetes but he does have hypertension. He quit smoking 2 years ago. ALLERGIES: Please see below. HOME MEDICATIONS: Please see below. PAST MEDICAL HISTORY: [place] Stroke COPD Renal cell carcinoma Osteoarthritis Hypertension PAST SURGICAL HISTORY: Right nephrectomy Hernia repair Right testicle removal PFO closure in 2017 Coronary artery stenting 2019 FAMILY HISTORY: Noncontributory. SOCIAL HISTORY: Quit smoking 2 years ago. Used to smoke a pack a day. Denies alcohol or drugs. REVIEW OF SYSTEMS: Otherwise negative. PHYSICAL EXAMINATION: No video on patient side. LABORATORY DATA: 06/04/2020 hemoglobin 11.6 hematocrit 36.2 WBC 3.9 platelets 179 sodium 141 potassium 3.7 BUN 20 creatinine 1.09 GFR greater than 60 fasting glucose 104 Total bilirubin 0.3 AST 10 ALT 20 ALP 76. Lipase 184 hemoglobin A1c 5.7 LDL 50 in 03/17/2020. Imaging: I personally reviewed the MRA performed August 2020. Poor quality study due to motion. Celiac artery appears patent. There might be a focal stenosis in the proximal SMA. LITA is not seen. ASSESSMENT/PLAN: 75-year-old male with upper abdominal/parasternal chest discomfort. Location of pain, timing and relation to food is not classic for chronic mesenteric ischemia. I think patient would benefit from upper endoscopy to look for changes of GERD and/or ulcer. If this does not reveal the correct diagnosis then patient will be followed up with angiography to evaluate for chronic mesenteric ischemia. Thank you for this referral. Cc Dr. Bull Chacko Allergies Coded Allergies: lisinopril (Unverified Allergy, Severe, ANAPHYLAXIS, 10/02/18) Home Medications Scheduled Atorvastatin Calcium (Atorvastatin Calcium), 40 MG PO QHS, (Reported) Calcium Carbonate (Calcium), 600 MG PO DAILY, (Reported) Cholecalciferol (Vitamin D3) (Vitamin D3), 1,000 UNITS PO DAILY, (Reported) Clopidogrel Bisulfate (Clopidogrel), 1 TAB PO DAILY, (Reported) Famotidine (Pepcid), 20 MG PO DAILY Fluticasone/Vilanterol (Breo Ellipta 100-25 Mcg INH), 1 PUFF INH DAILY, (Reported) Isosorbide Mononitrate (Isosorbide Mononitrate ER), 1 TAB PO DAILY, (Reported) Omeprazole (Omeprazole), 1 CAP PO DAILY, (Reported) Sucralfate (Sucralfate), 1 TAB PO QID, (Reported) Tamsulosin Hcl (Tamsulosin HCl), 0.4 MG PO QPM, (Reported) dilTIAZem HCl (Diltiazem 24Hr Cd), 1 TAB PO DAILY, (Reported) Scheduled PRN Albuterol Sulfate (Proventil Hfa), 2 PUFFS INH Q4H PRN for SOB/WHEEZING, (Reported) Albuterol Sulfate (Albuterol Sulfate), 2.5 MG INH Q6H PRN for SHORTNESS OF BREATH, (Reported) BRADY HOFF MD Sep 04, 2020 13:24
== END ==
LOC: M TMIRPOV 09:49
PROVIDERS: ATTEND Radiology Diagnostic Radiology
DX: R10.10 Upper abdominal pain, unspecified (principal); R07.9 Chest pain, unspecified; I10 Essential (primary) hypertension; I25.2 Old myocardial infarction; I69.998 Other sequelae following unspecified cerebrovascular disease; J44.9 Chronic obstructive pulmonary disease, unspecified; M19.90 Unspecified osteoarthritis, unspecified site; Z79.899 Other long term (current) drug therapy; Z85.528 Personal history of other malignant neoplasm of kidney; Z87.891 Personal history of nicotine dependence; Z95.1 Presence of aortocoronary bypass graft

== ENCOUNTER → 2021-01-07 | Outpatient (CLI) | payer MEDICARE, OTHER ==
[~2021-01-07] MED LIST changes: +AMLO1TAB25; +ASPI81TA26 PO; +CYAN100049 PO; +LIDO2SOL9; +NITR0.4S14; +OMEP40CA4 PO; -OMEP40CA97 PO; +PRAS10TA2 PO; +PROT1TAB2 PO; +TRAM50TA2
== END ==
LOC: M LABSMTC 12:37
PROVIDERS: ATTEND Anesthesiology
DX: Z11.52 Encounter for screening for COVID-19 (principal)

== ENCOUNTER 2021-01-12 10:57 | Day surgery (SDC) | payer MEDICARE, OTHER ==
[~2021-01-12] VITALS: Ht 167.6 cm; Wt 82.6 kg
[~2021-01-12 10:57] MED LIST changes: +NS 1,000 ML IV ONE
[2021-01-12] MEDS ORDERED: propofoL 200 MG/20 ML VIAL As Ordered ONE (12:00)
[2021-01-12] MEDS ORDERED: fentaNYL 100 MCG/2 ML INJECTION (J3010) As Ordered ONE (12:00)
[2021-01-12] MEDS ORDERED: LIDOCAINE 2% 100MG/5ML SDV (FOR ANES.) As Ordered ONE (12:00)
--- NOTE | 2021-01-12 12:15 | ROOR ---
Patient Name: Phong Castro Procedure Date: 01/12/2021 11:58 AM Date of : 1945 Age: 75 Room: [facility] Gender: Male Note Status: Finalized Procedure: Upper Endoscopy + Biopsies Indications: Epigastric abdominal pain, Heartburn Providers: Bull Chacko MD Referring MD: VENTURA WALDROP MD Requesting Provider: Medicines: Monitored Anesthesia Care Complications: No immediate complications. Procedure: Pre-Anesthesia Assessment: - The heart rate, respiratory rate, oxygen saturations, blood pressure, adequacy of pulmonary ventilation, and response to care were monitored throughout the procedure. The Endoscope was introduced through the mouth, and advanced to the second part of duodenum. The upper GI endoscopy was accomplished without difficulty. The patient tolerated the procedure well. Findings: The Z-line was regular and was found 40 cm from the incisors. No other significant abnormalities were identified in a careful examination of the stomach. Biopsies were taken with a cold forceps in the gastric antrum for Helicobacter pylori testing. The exam of the duodenum was otherwise normal. Impression: - Z-line regular, 40 cm from the incisors. - Biopsies were taken with a cold forceps for Helicobacter pylori testing. - The examination was otherwise normal. Recommendation: - Patient has a contact number available for emergencies. The signs and symptoms of potential delayed complications were discussed with the patient. Return to normal activities tomorrow. Written discharge instructions were provided to the patient. - High fiber diet. - Discharge patient to home. - Continue present medications. - Await pathology results. - Telephone GI clinic for pathology results in 1 week. - Return to referring physician. - The findings and recommendations were discussed with the patient's family. Procedure Code(s): --- Professional --- 02855, Esophagogastroduodenoscopy, flexible, transoral; with biopsy, single or multiple Diagnosis Code(s): --- Professional --- R10.13, Epigastric pain R12, Heartburn CPT copyright 2019 [employer]. All rights reserved. The codes documented in this report are preliminary and upon lithographic press feeder review may be revised to meet current compliance requirements. Bull Chacko MD Bull Chacko MD 01/12/2021 12:15:11 PM Electronically signed by Bull Chacko MD Number of Addenda: 0 Note Initiated On: 01/12/2021 11:58 AM Estimated Blood Loss: Estimated blood loss: none.
[2021-01-12 12:38] VITALS: BP 168/71
== END 2021-01-12 12:40 | disposition home or self-care (01) ==
LOC: M OPP 10:57
PROVIDERS: ATTEND Internal Medicine Gastroenterology
DX: R10.13 Epigastric pain (principal); K21.9 Gastro-esophageal reflux disease without esophagitis; Z79.82 Long term (current) use of aspirin; Z79.891 Long term (current) use of opiate analgesic; Z79.899 Other long term (current) drug therapy; Z88.8 Allergy status to other drugs, medicaments and biological substances; Z85.528 Personal history of other malignant neoplasm of kidney; Z86.73 Personal history of transient ischemic attack (TIA), and cerebral infarction without residual deficits; Z95.5 Presence of coronary angioplasty implant and graft
CPT/HCPCS: 43239; 88305; J3010

== ENCOUNTER → 2021-11-05 | Outpatient (CLI) | payer MEDICARE, OTHER ==
[~2021-11-05] MED LIST changes: -D31000TA2 PO; -NS 1,000 ML IV ONE; +VITA100093 PO
== END ==
LOC: M SOG 08:25
PROVIDERS: ATTEND Orthopaedic Surgery
DX: M19.011 Primary osteoarthritis, right shoulder (principal); M19.012 Primary osteoarthritis, left shoulder; M75.41 Impingement syndrome of right shoulder; M75.42 Impingement syndrome of left shoulder

== ENCOUNTER → 2022-02-25 | Outpatient (CLI) | payer MEDICARE, OTHER | LOC: M RAD 06:12 | PROVIDERS: ATTEND Internal Medicine Cardiovascular Disease | DX: I65.29 Occlusion and stenosis of unspecified carotid artery (principal) ==

== ENCOUNTER → 2022-03-15 | Outpatient (CLI) | payer MEDICARE, OTHER ==
[~2022-03-15] MED LIST changes: +ALBU6.7H6 INH; +FERR325T19 PO; -PROV108A INH
== END ==
LOC: M LABSMTC 09:21
PROVIDERS: ATTEND Anesthesiology
DX: Z01.818 Encounter for other preprocedural examination (principal); Z11.52 Encounter for screening for COVID-19

== ENCOUNTER 2022-03-17 12:15 | Day surgery (SDC) | payer MEDICARE, OTHER ==
[~2022-03-17] VITALS: Ht 167.6 cm; Wt 84.7 kg
[2022-03-17] MEDS ORDERED: MIDAZOLAM INJ 2MG/2ML VIAL (J2250 PER 1MG) As Ordered ONE (13:38)
[2022-03-17 14:45] VITALS: BP 150/71
== END 2022-03-17 15:05 | disposition home or self-care (01) ==
LOC: M OPP 12:15
PROVIDERS: ATTEND Internal Medicine Cardiovascular Disease
DX: I63.9 Cerebral infarction, unspecified (principal); Z95.818 Presence of other cardiac implants and grafts; I70.0 Atherosclerosis of aorta; I51.0 Cardiac septal defect, acquired; I42.3 Endomyocardial (eosinophilic) disease
CPT/HCPCS: 93312; 93320; 93325; J2250

== ENCOUNTER → 2022-09-09 | Outpatient (CLI) | payer MEDICARE, OTHER | LOC: M LABSMTC 11:09 | PROVIDERS: ATTEND Anesthesiology | DX: Z01.812 Encounter for preprocedural laboratory examination (principal); Z20.822 Contact with and (suspected) exposure to COVID-19 ==

== ENCOUNTER 2022-09-14 06:57 | Day surgery (SDC) | payer MEDICARE, OTHER ==
[~2022-09-14] VITALS: Ht 167.6 cm; Wt 86.6 kg
[~2022-09-14 06:57] MED LIST changes: +BSS IRR 500ML/OMIDRIA 4ML IRR BAG (OR ONLY) As Ordered ONE; +CEFUROXIME 1MG/0.1ML INTRACAMERAL INJ As Ordered ONE; +CYCLOPENTOLATE 1% OPHTH SOLN 2ML BTL OS SCH; +LIDOCAINE 1% SDV 5ML VIAL As Ordered ONE; +OFLOXACIN 0.3 % (OCUFLOX) OPTH SOL 5ML OS SCH; +PHENYLEPHRINE 2.5% OPHTH SOL 2ML OS SCH; +PROPARACAINE 0.5% OPHTH SOL 15ML OS ONE; +TROPICAMIDE 1% OPHTH SOLN 15ML OS SCH
[2022-09-14] MEDS ORDERED: MIDAZOLAM INJ 2MG/2ML VIAL As Ordered ONE (07:01)
[2022-09-14] MEDS ORDERED: fentaNYL 100 MCG/2 ML INJECTION As Ordered ONE (07:01)
[2022-09-14] MEDS ORDERED: XARE2.5T (07:33)
[2022-09-14] MEDS ORDERED: flumazeniL 0.5MG/5ML VIAL As Ordered ONE (09:03)
[2022-09-14] MEDS ORDERED: TRIAMCINOLONE ACETONIDE SUSP 40MG/ML 1ML VIAL As Ordered ONE (09:06)
[2022-09-14] MEDS ORDERED: ACETYLCHOLINE OPHTH SOLN 1% 2ML (MIOCHOL-E) As Ordered ONE (09:15)
[2022-09-14 10:45] VITALS: BP 178/78
== END 2022-09-14 10:50 | disposition home or self-care (01) ==
LOC: M SDC 06:57
PROVIDERS: ATTEND Ophthalmology
DX: H25.12 Age-related nuclear cataract, left eye (principal); I20.9 Angina pectoris, unspecified; Z95.5 Presence of coronary angioplasty implant and graft; I25.2 Old myocardial infarction; I10 Essential (primary) hypertension; E78.5 Hyperlipidemia, unspecified; Z86.718 Personal history of other venous thrombosis and embolism; Z86.73 Personal history of transient ischemic attack (TIA), and cerebral infarction without residual deficits; Z88.8 Allergy status to other drugs, medicaments and biological substances; Z79.82 Long term (current) use of aspirin; Z79.51 Long term (current) use of inhaled steroids; Z79.899 Other long term (current) drug therapy
CPT/HCPCS: 66982; J0697; J1097; J2250; J3010; V2632

== ENCOUNTER 2023-05-04 09:34 | Day surgery (SDC) | payer MEDICARE, OTHER ==
[~2023-05-04] VITALS: Ht 167.6 cm; Wt 85.2 kg
[~2023-05-04 09:34] MED LIST changes: -BSS IRR 500ML/OMIDRIA 4ML IRR BAG (OR ONLY) As Ordered ONE; -CEFUROXIME 1MG/0.1ML INTRACAMERAL INJ As Ordered ONE; -CYCLOPENTOLATE 1% OPHTH SOLN 2ML BTL OS SCH; +LIDO2SOBTL; -LIDO2SOL9; -LIDOCAINE 1% SDV 5ML VIAL As Ordered ONE; +NS 1,000 ML IV ONE; -OFLOXACIN 0.3 % (OCUFLOX) OPTH SOL 5ML OS SCH; -PHENYLEPHRINE 2.5% OPHTH SOL 2ML OS SCH; -PROPARACAINE 0.5% OPHTH SOL 15ML OS ONE; -TROPICAMIDE 1% OPHTH SOLN 15ML OS SCH; +XARE2.5T PO
[2023-05-04 12:47] VITALS: BP 169/70; TEMP 98.5; O2SAT 94
== END 2023-05-04 12:51 | disposition home or self-care (01) ==
LOC: M OPP 09:34
PROVIDERS: ATTEND Internal Medicine Gastroenterology
DX: Z12.11 Encounter for screening for malignant neoplasm of colon (principal); D12.3 Benign neoplasm of transverse colon; K64.0 First degree hemorrhoids; K57.30 Diverticulosis of large intestine without perforation or abscess without bleeding; Z86.010 Personal history of colon polyps; Z87.19 Personal history of other diseases of the digestive system; I69.398 Other sequelae of cerebral infarction; H53.8 Other visual disturbances; J44.9 Chronic obstructive pulmonary disease, unspecified; E78.00 Pure hypercholesterolemia, unspecified; I10 Essential (primary) hypertension; Z95.5 Presence of coronary angioplasty implant and graft; Z79.899 Other long term (current) drug therapy; Z79.82 Long term (current) use of aspirin; Z79.01 Long term (current) use of anticoagulants; Z85.528 Personal history of other malignant neoplasm of kidney

== ENCOUNTER → 2023-07-28 | Outpatient (CLI) | payer MEDICARE, OTHER ==
[~2023-07-28] MED LIST changes: +LIDO100S29; -LIDO2SOBTL; -NS 1,000 ML IV ONE
== END ==
LOC: M WUC 08:34
PROVIDERS: ATTEND Nurse Practitioner Family
DX: R07.82 Intercostal pain (principal); M85.88 Other specified disorders of bone density and structure, other site; M19.019 Primary osteoarthritis, unspecified shoulder

== ENCOUNTER → 2023-10-24 | Outpatient (CLI) | payer MEDICARE, OTHER | LOC: M WUC 10:47 | PROVIDERS: ATTEND Physician Assistant | DX: S20.221A Contusion of right back wall of thorax, initial encounter (principal); M47.9 Spondylosis, unspecified; Y93.9 Activity, unspecified; Y92.9 Unspecified place or not applicable ==

== ENCOUNTER 2023-11-11 09:29 | Observation (INO) | payer MEDICARE, OTHER ==
[~2023-11-11] VITALS: Ht 167.6 cm; Wt 87.6 kg
[2023-11-11 04:20] VITALS: BP 139/60; TEMP 97.9; O2SAT 96
[~2023-11-11 09:29] MED LIST changes: -BISA10SU PR; -FINA5TAB2 PO; -HYDR-4571 PO; -IPRA0.00 INH; -MIRA3350 PO; -SENN-85 PO
[2023-11-11] MEDS: ONDANSETRON 4MG 2ML VIAL IV ONE (11:01)
[2023-11-11] MEDS: MORPHINE 4 MG/ML 1ML VIAL IV ONE (11:02)
[2023-11-11] MEDS: NS 1,000 ML IV ONE (11:02)
[2023-11-11 11:12] LABS: BASO % 0.2 % (0.0-1.0); EOS % 0.1 % (0.0-3.0); HEMATOCRIT 39.9 % (42.0-52.0); HEMOGLOBIN 12.6 g/dl (13.5-17.5); LYMPH # 0.5 10^3/uL (1.5-5.0); LYMPH % 2.8 % (24.0-44.0); MEAN CORPUSCULAR HEMOGLOBIN 30.4 pg (27.0-33.0); MEAN CORPUSCULAR HGB CONC 31.6 g/dl (32.0-36.5); MEAN CORPUSCULAR VOLUME 96.1 fl (80.0-96.0); MONO # 1.4 10^3/uL (0.0-0.8); MONO % 8.4 % (2.0-8.0); NEUTROPHILS # 14.4 10^3/uL (1.5-8.5); PLATELET COUNT, AUTOMATED 331 10^3/uL (150-450); RED BLOOD COUNT 4.15 10^6/uL (4.30-6.10); WHITE BLOOD COUNT 16.4 10^3/uL (4.0-10.0)
[2023-11-11] MEDS ORDERED: ISOVUE-370 76% 100ML VIAL As Ordered ONE (11:14)
[2023-11-11 11:32] LABS: INR 1.45; PARTIAL THROMBOPLASTIN TIME 30.5 SECONDS (24.8-34.2); PROTHROMBIN TIME 17.2 SECONDS (12.5-14.5)
[2023-11-11 11:37] LABS: CK-MB VALUE MASS < 1.0 NG/ML (<3.6); LIPASE 21 U/L (12-53)
[2023-11-11 11:39] LABS: ALKALINE PHOSPHATASE 205 U/L (46-116); ALT/SGPT 14 U/L (7.0-40); AST/SGOT 10 U/L (<34); BILIRUBIN,DIRECT 0.3 MG/DL (<0.4); BILIRUBIN,TOTAL 0.7 MG/DL (0.3-1.2); BLOOD UREA NITROGEN 19 MG/DL (9-23); CALCIUM LEVEL 10.1 MG/DL (8.3-10.6); CARBON DIOXIDE LEVEL 25 MMOL/L (20-31); CHLORIDE LEVEL 106 MMOL/L (98-107); CPK CREATINE PHOSPHOKINASE 36 U/L (46-171); CREATININE FOR GFR 1.29 MG/DL (0.70-1.30); GLOMERULAR FILTRATION RATE 57.6 (>42); GLUCOSE, FASTING 114 MG/DL (74-106); MB/CK RELATIVE INDEX 2.77 (< OR =4); POTASSIUM SERUM 4.5 MMOL/L (3.5-5.1); SODIUM LEVEL 138 MMOL/L (136-145); TOTAL PROTEIN 5.9 G/DL (5.7-8.2)
[2023-11-11] MEDS: ACETAMINOPHEN 325 MG TAB PO ONE (11:48)
[2023-11-11] MEDS: PIPERACILLIN/TAZOBACTAM SOD 3.375 GM in D5W MINI-BAG PLUS 50 ML IV ONE (11:57)
[2023-11-11] MEDS: NS 1,560 ML in IV 1 EA IV ONE (12:34)
[2023-11-11] MEDS: fentaNYL 100 MCG/2 ML INJECTION IV ONE (14:00)
[2023-11-11] MEDS ORDERED: FINA5TAB2 PO (14:47)
[2023-11-11] MEDS ORDERED: IPRA0.00 INH (14:47)
[2023-11-11] MEDS ORDERED: HYDR-4571 PO (14:47)
[2023-11-11] MEDS ORDERED: HOME MED LIST COMPLETE! XX SCH (14:50)
[2023-11-11 14:56] LABS: PROCALCITONIN 0.42 ng/ml
[2023-11-11] MEDS ORDERED: BISACODYL 10MG SUPP PR PRN (15:05)
[2023-11-11] MEDS ORDERED: ACETAMINOPHEN TAB 650MG DOSE (2X325MG) PO PRN (15:05)
[2023-11-11] MEDS: BISACODYL 10MG SUPP PR ONE (15:32)
[2023-11-11] MEDS: MIRALAX *UNIT DOSE* 17GM PACKET PO SCH (15:32)
[2023-11-11] MEDS: IPRATROPIUM 0.5MG/ALBUTEROL 2.5MG INH SOL UD 3ML (DUONEB) NEB PRN (15:51)
[2023-11-11] MEDS ORDERED: PILL CUTTER 1 EACH XX PRN (16:10)
[2023-11-11] MEDS: LIDOCAINE 5% (LIDODERM) PATCH TD PRN (17:22)
[2023-11-11] MEDS: RIVAROXABAN 10MG TAB (XARELTO) PO SCH (17:22)
[2023-11-11 17:36] VITALS: O2SAT 92
[2023-11-11] MEDS: ADVAIR HFA 230/21MCG INHALER INH SCH (19:33)
[2023-11-11] MEDS: IPRATROPIUM 0.5MG/ALBUTEROL 2.5MG INH SOL UD 3ML (DUONEB) NEB SCH (19:33)
[2023-11-11] MEDS: ATORVASTATIN 20 MG TAB PO SCH (20:31)
[2023-11-11] MEDS: SENOKOT S TAB PO SCH (20:31)
[2023-11-11 20:32] VITALS: BP 117/51; TEMP 98.1; O2SAT 92
[2023-11-12 05:17] VITALS: BP 144/60; TEMP 98; O2SAT 93
[2023-11-12 05:56] LABS: BASO % 0.2 % (0.0-1.0); HEMATOCRIT 36.3 % (42.0-52.0); HEMOGLOBIN 11.5 g/dl (13.5-17.5); LYMPH # 0.6 10^3/uL (1.5-5.0); LYMPH % 3.9 % (24.0-44.0); MEAN CORPUSCULAR HEMOGLOBIN 30.1 pg (27.0-33.0); MEAN CORPUSCULAR HGB CONC 31.7 g/dl (32.0-36.5); MONO # 1.5 10^3/uL (0.0-0.8); MONO % 10.5 % (2.0-8.0); NEUTROPHILS # 11.8 10^3/uL (1.5-8.5); PLATELET COUNT, AUTOMATED 281 10^3/uL (150-450); RED BLOOD COUNT 3.82 10^6/uL (4.30-6.10); WHITE BLOOD COUNT 13.9 10^3/uL (4.0-10.0)
[2023-11-12] MEDS ORDERED: SENNA 8.6 MG TAB (SENOKOT) PO ONE (06:20)
[2023-11-12] MEDS ORDERED: LACTULOSE 20GM/30ML SYRUP UDC PO ONE (06:20)
[2023-11-12 06:32] LABS: CALCIUM LEVEL 8.6 MG/DL (8.3-10.6); CREATININE FOR GFR 1.31 MG/DL (0.70-1.30); GLOMERULAR FILTRATION RATE 56.6 (>42); POTASSIUM SERUM 4.2 MMOL/L (3.5-5.1)
[2023-11-12] MEDS: ASPIRIN 81MG ENTERIC TABLET PO SCH (08:27)
[2023-11-12] MEDS: PANTOPRAZOLE 40MG TAB (PROTONIX) PO SCH (08:27)
[2023-11-12 08:28] VITALS: BP 145/61
[2023-11-12] MEDS: FINASTERIDE 5MG TAB PO SCH (08:28)
[2023-11-12] MEDS: dilTIAZem 120MG **CD** CAPSULE PO SCH (08:28)
[2023-11-12] MEDS ORDERED: SENN-85 PO (08:56)
[2023-11-12] MEDS ORDERED: BISA10SU PR (08:56)
[2023-11-12] MEDS ORDERED: MIRA3350 PO (08:56)
== END 2023-11-12 11:22 | disposition home or self-care (01) ==
LOC: M ED 09:29 → M ED INP 13:54 → M MSPAV 16:05
PROVIDERS: ADMIT Internal Medicine; ATTEND Internal Medicine
DX: K59.00 Constipation, unspecified (principal); R10.30 Lower abdominal pain, unspecified; D72.829 Elevated white blood cell count, unspecified; R53.83 Other fatigue; E87.20 Acidosis, unspecified; I12.9 Hypertensive chronic kidney disease with stage 1 through stage 4 chronic kidney disease, or unspecified chronic kidney disease; R94.4 Abnormal results of kidney function studies; N18.30 Chronic kidney disease, stage 3 unspecified; J44.9 Chronic obstructive pulmonary disease, unspecified; Z99.81 Dependence on supplemental oxygen; I25.10 Atherosclerotic heart disease of native coronary artery without angina pectoris; K44.9 Diaphragmatic hernia without obstruction or gangrene; R10.84 Generalized abdominal pain; Z90.79 Acquired absence of other genital organ(s); Z87.891 Personal history of nicotine dependence; Z86.73 Personal history of transient ischemic attack (TIA), and cerebral infarction without residual deficits; Z79.899 Other long term (current) drug therapy; Z79.82 Long term (current) use of aspirin; Z79.01 Long term (current) use of anticoagulants
CPT/HCPCS: 36415; 71045; 74021; 74177; 80047; 80048; 80053; 80076; 81001; 82150; 82550; 82553; 83605; 83690; 84145; 84484; 85025; 85610; 85730; 86140; 87040; 87086; 93005; 93041; 94640; 94760; 96361; 96374; 96375; 97161; 99285; G0378; J2405; J2543; J3010; Q9967

== ENCOUNTER → 2023-11-11 | Outpatient (CLI) | payer MEDICARE, OTHER ==
[~2023-11-11] MED LIST changes: -AMLO1TAB25; +BISA10SU PR; +FINA5TAB2 PO; +HYDR-4571 PO; +IPRA0.00 INH; +MIRA3350 PO; +SENN-85 PO
[2023-11-11 10:18] LABS: BASO # 0.1 10^3/uL (0.0-0.2); BASO % 0.4 % (0.0-1.0); EOS % 0.3 % (0.0-3.0); HEMATOCRIT 39.1 % (42.0-52.0); HEMOGLOBIN 12.3 g/dl (13.5-17.5); LYMPH # 0.8 10^3/uL (1.5-5.0); LYMPH % 6.1 % (24.0-44.0); MEAN CORPUSCULAR HEMOGLOBIN 29.8 pg (27.0-33.0); MEAN CORPUSCULAR HGB CONC 31.5 g/dl (32.0-36.5); MEAN CORPUSCULAR VOLUME 94.7 fl (80.0-96.0); MONO # 0.8 10^3/uL (0.0-0.8); MONO % 6.5 % (2.0-8.0); NEUTROPHILS # 10.8 10^3/uL (1.5-8.5); NEUTROPHILS % 86.1 % (36.0-66.0); PLATELET COUNT, AUTOMATED 343 10^3/uL (150-450); RED BLOOD COUNT 4.13 10^6/uL (4.30-6.10); WHITE BLOOD COUNT 12.5 10^3/uL (4.0-10.0)
[2023-11-11 10:47] LABS: AMYLASE 61 U/L (30-118); LIPASE 21 U/L (12-53)
[2023-11-11 10:49] LABS: ALBUMIN 2.9 G/DL (3.2-5.2); ALKALINE PHOSPHATASE 148 U/L (46-116); ALT/SGPT 13 U/L (7.0-40); AST/SGOT 9 U/L (<34); BILIRUBIN,TOTAL 0.6 MG/DL (0.3-1.2); BLOOD UREA NITROGEN 17 MG/DL (9-23); CALCIUM LEVEL 9.5 MG/DL (8.3-10.6); CARBON DIOXIDE LEVEL 27 MMOL/L (20-31); CHLORIDE LEVEL 107 MMOL/L (98-107); GLOMERULAR FILTRATION RATE > 60.0 (>42); GLUCOSE, FASTING 123 MG/DL (74-106); POTASSIUM SERUM 4.1 MMOL/L (3.5-5.1); SODIUM LEVEL 141 MMOL/L (136-145); TOTAL PROTEIN 5.7 G/DL (5.7-8.2)
== END ==
LOC: M WUC 08:34
PROVIDERS: ATTEND Physician Assistant
DX: R10.84 Generalized abdominal pain (principal)

== ENCOUNTER → 2024-04-10 | Outpatient (CLI) | payer MEDICARE, OTHER ==
[~2024-04-10] MED LIST changes: +BISA10SU PR; +FINA5TAB2 PO; +HYDR-4571 PO; +IPRA0.00 INH; +MIRA3350 PO; +SENN-85 PO
[2024-04-10 14:06] LABS: BASO % 0.2 % (0.0-1.0); HEMATOCRIT 34.6 % (42.0-52.0); HEMOGLOBIN 10.6 g/dl (13.5-17.5); LYMPH # 0.2 10^3/uL (1.5-5.0); LYMPH % 1.7 % (24.0-44.0); MEAN CORPUSCULAR HEMOGLOBIN 30.7 pg (27.0-33.0); MEAN CORPUSCULAR HGB CONC 30.6 g/dl (32.0-36.5); MEAN CORPUSCULAR VOLUME 100.3 fl (80.0-96.0); MONO # 0.7 10^3/uL (0.0-0.8); MONO % 5.3 % (2.0-8.0); NEUTROPHILS # 12.5 10^3/uL (1.5-8.5); NEUTROPHILS % 90.2 % (36.0-66.0); PLATELET COUNT, AUTOMATED 258 10^3/uL (150-450); RED BLOOD COUNT 3.45 10^6/uL (4.30-6.10); WHITE BLOOD COUNT 13.9 10^3/uL (4.0-10.0)
[2024-04-10 14:34] LABS: ALBUMIN 2.9 G/DL (3.2-5.2); ALKALINE PHOSPHATASE 54 U/L (46-116); ALT/SGPT 23 U/L (7.0-40); AST/SGOT 8 U/L (<34); BILIRUBIN,TOTAL 0.6 MG/DL (0.3-1.2); BLOOD UREA NITROGEN 19 MG/DL (9-23); CALCIUM LEVEL 9.2 MG/DL (8.3-10.6); CARBON DIOXIDE LEVEL 27 MMOL/L (20-31); CHLORIDE LEVEL 105 MMOL/L (98-107); CREATININE FOR GFR 0.93 MG/DL (0.70-1.30); GLOMERULAR FILTRATION RATE > 60.0 (>42); GLUCOSE, FASTING 96 MG/DL (74-106); POTASSIUM SERUM 4.1 MMOL/L (3.5-5.1); SODIUM LEVEL 142 MMOL/L (136-145); TOTAL PROTEIN 5.6 G/DL (5.7-8.2)
== END ==
LOC: M WUC 10:13
PROVIDERS: ATTEND Internal Medicine
DX: J44.1 Chronic obstructive pulmonary disease with (acute) exacerbation (principal)

== ENCOUNTER → 2024-04-30 | Outpatient (CLI) | payer MEDICARE, OTHER ==
[2024-04-30 13:34] LABS: BASO % 0.1 % (0.0-1.0); HEMOGLOBIN 10.3 g/dl (13.5-17.5); LYMPH # 0.2 10^3/uL (1.5-5.0); LYMPH % 2.5 % (24.0-44.0); MEAN CORPUSCULAR HEMOGLOBIN 30.4 pg (27.0-33.0); MEAN CORPUSCULAR HGB CONC 29.4 g/dl (32.0-36.5); MEAN CORPUSCULAR VOLUME 103.2 fl (80.0-96.0); MONO # 0.3 10^3/uL (0.0-0.8); MONO % 3.5 % (2.0-8.0); NEUTROPHILS # 6.7 10^3/uL (1.5-8.5); NEUTROPHILS % 92.2 % (36.0-66.0); PLATELET COUNT, AUTOMATED 182 10^3/uL (150-450); RED BLOOD COUNT 3.39 10^6/uL (4.30-6.10); WHITE BLOOD COUNT 7.2 10^3/uL (4.0-10.0)
[2024-04-30 14:00] LABS: ALBUMIN 2.8 G/DL (3.2-5.2); ALKALINE PHOSPHATASE 51 U/L (40-129); ALT/SGPT 21 U/L (7.0-40); AST/SGOT 9 U/L (<34); BILIRUBIN,TOTAL 0.6 MG/DL (0.3-1.2); BLOOD UREA NITROGEN 24 MG/DL (9-23); CALCIUM LEVEL 9.3 MG/DL (8.3-10.6); CARBON DIOXIDE LEVEL 31 MMOL/L (20-31); CHLORIDE LEVEL 108 MMOL/L (98-107); CREATININE FOR GFR 1.13 MG/DL (0.70-1.30); GLOMERULAR FILTRATION RATE > 60.0 (>42); GLUCOSE, FASTING 185 MG/DL (74-106); POTASSIUM SERUM 4.2 MMOL/L (3.5-5.1); SODIUM LEVEL 146 MMOL/L (136-145); TOTAL PROTEIN 5.4 G/DL (5.7-8.2)
== END ==
LOC: M WUC 09:48
PROVIDERS: ATTEND Internal Medicine
DX: J18.9 Pneumonia, unspecified organism (principal); D64.9 Anemia, unspecified

== ENCOUNTER → 2024-06-15 | Outpatient (CLI) | payer MEDICARE, OTHER | LOC: M WUC 15:10 | PROVIDERS: ATTEND Nurse Practitioner Family | DX: S22.31XA Fracture of one rib, right side, initial encounter for closed fracture (principal); R07.82 Intercostal pain; M25.512 Pain in left shoulder; M79.662 Pain in left lower leg; Y93.9 Activity, unspecified; Y92.9 Unspecified place or not applicable ==

== ENCOUNTER → 2024-06-29 | Outpatient (CLI) | payer MEDICARE, OTHER | LOC: M CARPUL 08:43 | PROVIDERS: ATTEND Physician Assistant | DX: I48.0 Paroxysmal atrial fibrillation (principal) ==

== ENCOUNTER → 2024-07-30 | Outpatient (CLI) | payer MEDICARE, OTHER | LOC: M EKG 08:46 | PROVIDERS: ATTEND Physician Assistant | DX: I48.0 Paroxysmal atrial fibrillation (principal) ==

== ENCOUNTER → 2024-08-15 | Outpatient (CLI) | payer MEDICARE, OTHER ==
[2024-08-15 13:58] LABS: BASO # 0.1 10^3/uL (0.0-0.2); BASO % 0.8 % (0.0-1.0); EOS % 0.5 % (0.0-3.0); HEMATOCRIT 35.9 % (42.0-52.0); HEMOGLOBIN 10.8 g/dl (13.5-17.5); LYMPH # 0.6 10^3/uL (1.5-5.0); LYMPH % 9.5 % (24.0-44.0); MEAN CORPUSCULAR HEMOGLOBIN 26.7 pg (27.0-33.0); MEAN CORPUSCULAR HGB CONC 30.1 g/dl (32.0-36.5); MEAN CORPUSCULAR VOLUME 88.9 fl (80.0-96.0); MONO # 0.8 10^3/uL (0.0-0.8); MONO % 12.1 % (2.0-8.0); NEUTROPHILS # 4.8 10^3/uL (1.5-8.5); PLATELET COUNT, AUTOMATED 285 10^3/uL (150-450); RED BLOOD COUNT 4.04 10^6/uL (4.30-6.10); WHITE BLOOD COUNT 6.3 10^3/uL (4.0-10.0)
[2024-08-15 14:34] LABS: ERYTHROCYTE SEDIMENTATION RATE 35 mm/hr (0-20)
== END ==
LOC: M LAB 12:42
PROVIDERS: ATTEND Optometrist
DX: G45.3 Amaurosis fugax (principal)

== ENCOUNTER 2024-08-26 14:23 | Emergency (ER) | payer MEDICARE, OTHER ==
[~2024-08-26] VITALS: Ht 167.6 cm; Wt 81.4 kg
[2024-08-26 15:17] LABS: BASO % 0.2 % (0.0-1.0); HEMATOCRIT 33.8 % (42.0-52.0); HEMOGLOBIN 10.2 g/dl (13.5-17.5); LYMPH # 0.4 10^3/uL (1.5-5.0); LYMPH % 4.4 % (24.0-44.0); MEAN CORPUSCULAR HEMOGLOBIN 27.2 pg (27.0-33.0); MEAN CORPUSCULAR HGB CONC 30.2 g/dl (32.0-36.5); MEAN CORPUSCULAR VOLUME 90.1 fl (80.0-96.0); MONO # 0.8 10^3/uL (0.0-0.8); MONO % 9.5 % (2.0-8.0); NEUTROPHILS % 83.5 % (36.0-66.0); PLATELET COUNT, AUTOMATED 287 10^3/uL (150-450); RED BLOOD COUNT 3.75 10^6/uL (4.30-6.10); WHITE BLOOD COUNT 8.4 10^3/uL (4.0-10.0)
[2024-08-26 15:44] LABS: DIGOXIN LEVEL 0.9 NG/ML (0.8-2.0)
[2024-08-26 15:50] LABS: ALBUMIN 2.9 G/DL (3.2-5.2); ALKALINE PHOSPHATASE 59 U/L (40-129); ALT/SGPT 11 U/L (7.0-40); AST/SGOT 18 U/L (<34); BILIRUBIN,DIRECT 0.1 MG/DL (<0.4); BILIRUBIN,TOTAL 0.4 MG/DL (0.3-1.2); BLOOD UREA NITROGEN 13 MG/DL (9-23); CALCIUM LEVEL 8.2 MG/DL (8.3-10.6); CARBON DIOXIDE LEVEL 28 MMOL/L (20-31); CHLORIDE LEVEL 108 MMOL/L (98-107); CK-MB VALUE MASS < 1.0 NG/ML (<3.6); CPK CREATINE PHOSPHOKINASE 32 U/L (46-171); CREATININE FOR GFR 0.98 MG/DL (0.70-1.30); FREE T4 1.52 NG/DL (0.89-1.76); GLOMERULAR FILTRATION RATE > 60.0 (>42); GLUCOSE, FASTING 98 MG/DL (74-106); MB/CK RELATIVE INDEX 3.12 (< OR =4); POTASSIUM SERUM 4.4 MMOL/L (3.5-5.1); SODIUM LEVEL 143 MMOL/L (136-145); THYROID STIMULATING HORMONE 0.586 uIU/ML (0.55-4.78); TOTAL PROTEIN 5.6 G/DL (5.7-8.2)
[2024-08-26] MEDS: NS 500 ML IV ONE (16:17)
[2024-08-26 16:55] LABS: CK-MB VALUE MASS < 1.0 NG/ML (<3.6)
[2024-08-26 16:56] LABS: CPK CREATINE PHOSPHOKINASE 24 U/L (46-171); MB/CK RELATIVE INDEX 4.16 (< OR =4)
[2024-08-26 17:52] VITALS: BP 148/66; TEMP 97.3; O2SAT 93
== END 2024-08-26 18:12 | disposition home or self-care (01) ==
LOC: EDBD 14:23 → M ED 14:23
DX: R53.1 Weakness (principal); I48.91 Unspecified atrial fibrillation; I25.2 Old myocardial infarction; J44.9 Chronic obstructive pulmonary disease, unspecified; E78.5 Hyperlipidemia, unspecified; I10 Essential (primary) hypertension; Z86.73 Personal history of transient ischemic attack (TIA), and cerebral infarction without residual deficits; Z85.528 Personal history of other malignant neoplasm of kidney; Z88.8 Allergy status to other drugs, medicaments and biological substances; Z87.891 Personal history of nicotine dependence; Z79.51 Long term (current) use of inhaled steroids; Z79.1 Long term (current) use of non-steroidal anti-inflammatories (NSAID); Z79.899 Other long term (current) drug therapy; Z79.01 Long term (current) use of anticoagulants

== ENCOUNTER → 2024-08-30 | Outpatient (CLI) | payer MEDICARE, OTHER ==
[~2024-08-30] MED LIST changes: +ATOR1TAB21 PO; +DIGO0.123 PO; +FLUT1BLS8 INH; -NITR0.4S14; +NITR0.4S14 PO; +TRAM50TA2 PO; +XARE20TA PO
== END ==
LOC: M CARPUL 11:06
PROVIDERS: ATTEND Physician Assistant
DX: I48.0 Paroxysmal atrial fibrillation (principal)

== ENCOUNTER 2024-09-01 15:53 | Observation (INO) | payer MEDICARE, OTHER ==
[~2024-09-01] VITALS: Ht 175.3 cm; Wt 80.3 kg
[~2024-09-01 15:53] MED LIST changes: -ATOR1TAB21 PO; -DIGO0.123 PO; -FLUT1BLS8 INH; -TRAM50TA2 PO; -XARE20TA PO
[2024-09-01] MEDS: NS 500 ML IV ONE (16:45)
[2024-09-01 16:53] LABS: BASO % 0.2 % (0.0-1.0); HEMATOCRIT 35.3 % (42.0-52.0); HEMOGLOBIN 10.9 g/dl (13.5-17.5); LYMPH # 0.4 10^3/uL (1.5-5.0); LYMPH % 4.1 % (24.0-44.0); MEAN CORPUSCULAR HEMOGLOBIN 27.6 pg (27.0-33.0); MEAN CORPUSCULAR HGB CONC 30.9 g/dl (32.0-36.5); MEAN CORPUSCULAR VOLUME 89.4 fl (80.0-96.0); MONO % 9.7 % (2.0-8.0); NEUTROPHILS # 8.5 10^3/uL (1.5-8.5); NEUTROPHILS % 82.1 % (36.0-66.0); PLATELET COUNT, AUTOMATED 268 10^3/uL (150-450); RED BLOOD COUNT 3.95 10^6/uL (4.30-6.10); WHITE BLOOD COUNT 10.3 10^3/uL (4.0-10.0)
[2024-09-01 17:11] LABS: INR 1.04; PARTIAL THROMBOPLASTIN TIME 26.3 SECONDS (24.8-34.2)
[2024-09-01 17:17] LABS: CK-MB VALUE MASS < 1.0 NG/ML (<3.6)
[2024-09-01 17:19] LABS: DIGOXIN LEVEL 0.8 NG/ML (0.8-2.0)
[2024-09-01 17:20] LABS: ALBUMIN 2.9 G/DL (3.2-5.2); ALKALINE PHOSPHATASE 51 U/L (40-129); ALT/SGPT 12 U/L (7.0-40); AST/SGOT < 8 U/L (<34); BILIRUBIN,DIRECT 0.1 MG/DL (<0.4); BILIRUBIN,TOTAL 0.4 MG/DL (0.3-1.2); BLOOD UREA NITROGEN 19 MG/DL (9-23); CALCIUM LEVEL 8.5 MG/DL (8.3-10.6); CARBON DIOXIDE LEVEL 28 MMOL/L (20-31); CHLORIDE LEVEL 107 MMOL/L (98-107); CPK CREATINE PHOSPHOKINASE 25 U/L (46-171); CREATININE FOR GFR 1.04 MG/DL (0.70-1.30); GLOMERULAR FILTRATION RATE > 60.0 (>42); GLUCOSE, FASTING 107 MG/DL (74-106); POTASSIUM SERUM 4.3 MMOL/L (3.5-5.1); SODIUM LEVEL 143 MMOL/L (136-145); TOTAL PROTEIN 5.5 G/DL (5.7-8.2)
[2024-09-01 17:21] LABS: THYROID STIMULATING HORMONE 0.885 uIU/ML (0.55-4.78)
[2024-09-01 17:22] LABS: FREE T4 1.88 NG/DL (0.89-1.76)
[2024-09-01 18:08] LABS: CK-MB VALUE MASS < 1.0 NG/ML (<3.6)
[2024-09-01 18:10] LABS: CPK CREATINE PHOSPHOKINASE 25 U/L (46-171)
[2024-09-01] MEDS: NS (Normal Saline) 0.9% 1,000 ML IV SCH (18:35)
[2024-09-01] MEDS ORDERED: ACETAMINOPHEN 325 MG TAB PO PRN (20:20)
[2024-09-01] MEDS ORDERED: MOM 30ML SUSPENSION UDC PO PRN (20:20)
[2024-09-01] MEDS ORDERED: MAALOX 30 ML SUSP *UDC PO PRN (20:20)
[2024-09-01] MEDS: DOCUSATE SODIUM 100MG CAPSULE PO SCH (21:00)
[2024-09-01 21:21] LABS: MAGNESIUM LEVEL 2.1 MG/DL (1.8-2.4)
[2024-09-01] MEDS ORDERED: XARE20TA PO (21:52)
[2024-09-01] MEDS ORDERED: DIGO0.123 PO (22:07)
[2024-09-01] MEDS ORDERED: FLUT1BLS8 INH (22:07)
[2024-09-01] MEDS ORDERED: TRAM50TA2 PO (22:07)
[2024-09-01] MEDS ORDERED: HOME MED LIST COMPLETE! XX SCH (22:10)
[2024-09-01 22:53] VITALS: BP 164/64; TEMP 97.7; O2SAT 94
[2024-09-01 23:10] VITALS: BP 164/64; TEMP 97.7; O2SAT 94
[2024-09-02] MEDS ORDERED: CALCIUM CARBONATE 500 MG CHEW U/D PO PRN (00:20)
[2024-09-02] MEDS ORDERED: traMADol 50 MG TAB PO PRN (00:20)
[2024-09-02] MEDS ORDERED: NITROGLYCERIN 0.4MG SUBL TABLET SL PRN (00:20)
[2024-09-02] MEDS: IPRATROPIUM 0.5MG/ALBUTEROL 2.5MG INH SOL UD 3ML (DUONEB) INH PRN (00:43)
[2024-09-02 04:18] VITALS: BP 162/66; TEMP 97.9; O2SAT 93
[2024-09-02 05:11] LABS: HEMATOCRIT 34.8 % (42.0-52.0); HEMOGLOBIN 10.4 g/dl (13.5-17.5); MEAN CORPUSCULAR HEMOGLOBIN 26.7 pg (27.0-33.0); MEAN CORPUSCULAR HGB CONC 29.9 g/dl (32.0-36.5); MEAN CORPUSCULAR VOLUME 89.5 fl (80.0-96.0); PLATELET COUNT, AUTOMATED 256 10^3/uL (150-450); RED BLOOD COUNT 3.89 10^6/uL (4.30-6.10); WHITE BLOOD COUNT 10.6 10^3/uL (4.0-10.0)
[2024-09-02 05:39] LABS: ALBUMIN 2.8 G/DL (3.2-5.2); ALKALINE PHOSPHATASE 49 U/L (40-129); ALT/SGPT 11 U/L (7.0-40); AST/SGOT 9 U/L (<34); BILIRUBIN,TOTAL 0.4 MG/DL (0.3-1.2); BLOOD UREA NITROGEN 15 MG/DL (9-23); CALCIUM LEVEL 8.7 MG/DL (8.3-10.6); CARBON DIOXIDE LEVEL 28 MMOL/L (20-31); CHLORIDE LEVEL 110 MMOL/L (98-107); CREATININE FOR GFR 0.83 MG/DL (0.70-1.30); GLOMERULAR FILTRATION RATE > 60.0 (>42); GLUCOSE, FASTING 89 MG/DL (74-106); MAGNESIUM LEVEL 2.1 MG/DL (1.8-2.4); POTASSIUM SERUM 4.3 MMOL/L (3.5-5.1); SODIUM LEVEL 146 MMOL/L (136-145); TOTAL PROTEIN 5.3 G/DL (5.7-8.2)
[2024-09-02] MEDS: PANTOPRAZOLE 40MG TAB (PROTONIX) PO SCH (08:25)
[2024-09-02] MEDS: VITAMIN D 1,000 INTERNATIONAL UNITS TABLET PO SCH (08:25)
[2024-09-02] MEDS: CYANOCOBALAMIN 500 MCG TAB PO SCH (08:26)
[2024-09-02] MEDS: FERROUS SULFATE 325MG TAB PO SCH (08:26)
[2024-09-02] MEDS: dilTIAZem **CD** 180MG CAP PO SCH (08:26)
[2024-09-02] MEDS ORDERED: [UNRECOGNIZED DRUG - MIXTURE] INH SCH (09:00)
[2024-09-02 10:08] VITALS: O2SAT 96
[2024-09-02] MEDS: NS 500 ML IV ONE (10:09)
[2024-09-02 11:37] VITALS: BP 138/61; TEMP 97.7; O2SAT 96
[2024-09-02 16:01] VITALS: BP 156/70; TEMP 98.1; O2SAT 94
[2024-09-02] MEDS: CHLORASEPTIC SPRAY MT PRN (17:08)
[2024-09-02 20:55] VITALS: BP 141/55; TEMP 97.9; O2SAT 97
[2024-09-02] MEDS ORDERED: ATORVASTATIN 20 MG TAB PO SCH (21:00)
[2024-09-02] MEDS: FINASTERIDE 5MG TAB PO SCH (21:11)
[2024-09-02] MEDS: DIGOXIN 0.125 MG TAB PO SCH (21:11)
[2024-09-02] MEDS: RIVAROXABAN 20MG TAB (XARELTO) PO SCH (21:11)
[2024-09-02] MEDS: ATORVASTATIN 20 MG TAB PO SCH (21:12)
[2024-09-02 23:44] VITALS: BP 146/55; TEMP 97.7; O2SAT 95
[2024-09-03 04:14] VITALS: BP 131/65; TEMP 98.1; O2SAT 94
[2024-09-03 06:41] LABS: BASO % 0.2 % (0.0-1.0); HEMATOCRIT 34.6 % (42.0-52.0); HEMOGLOBIN 10.4 g/dl (13.5-17.5); LYMPH # 0.4 10^3/uL (1.5-5.0); LYMPH % 3.7 % (24.0-44.0); MEAN CORPUSCULAR HGB CONC 30.1 g/dl (32.0-36.5); MEAN CORPUSCULAR VOLUME 89.9 fl (80.0-96.0); MONO # 0.9 10^3/uL (0.0-0.8); MONO % 9.7 % (2.0-8.0); NEUTROPHILS # 8.1 10^3/uL (1.5-8.5); NEUTROPHILS % 84.4 % (36.0-66.0); PLATELET COUNT, AUTOMATED 239 10^3/uL (150-450); RED BLOOD COUNT 3.85 10^6/uL (4.30-6.10); WHITE BLOOD COUNT 9.5 10^3/uL (4.0-10.0)
[2024-09-03 07:14] LABS: BLOOD UREA NITROGEN 15 MG/DL (9-23); CALCIUM LEVEL 8.6 MG/DL (8.3-10.6); CARBON DIOXIDE LEVEL 30 MMOL/L (20-31); CHLORIDE LEVEL 107 MMOL/L (98-107); CHOLESTEROL LEVEL 127 MG/DL (<200); CHOLESTEROL RISK RATIO 2.32 (<5); CREATININE FOR GFR 0.82 MG/DL (0.70-1.30); GLOMERULAR FILTRATION RATE > 60.0 (>42); GLUCOSE, FASTING 102 MG/DL (74-106); HDL CHOLESTEROL 54.7 MG/DL (>40); LDL CHOLESTEROL 41.5 MG/DL (<100); NON-HDL-C 72.3 MG/DL; POTASSIUM SERUM 4.6 MMOL/L (3.5-5.1); SODIUM LEVEL 143 MMOL/L (136-145); TRIGLYCERIDES LEVEL 154 MG/DL (<150)
[2024-09-03 08:00] VITALS: BP 147/63; TEMP 97.7; O2SAT 98
[2024-09-03 09:36] VITALS: BP 138/54
[2024-09-03] MEDS ORDERED: ATOR1TAB21 PO (09:42)
== END 2024-09-03 11:12 | disposition home or self-care (01) ==
LOC: M ED 15:53 → EDBD 15:53 → INTOOBSV 20:20 → M ED INP 20:20 → M MSPAV 22:43
PROVIDERS: ADMIT Family Medicine; ATTEND Internal Medicine
DX: S06.9X0A Unspecified intracranial injury without loss of consciousness, initial encounter (principal); W01.198A Fall on same level from slipping, tripping and stumbling with subsequent striking against other object, initial encounter; Y92.9 Unspecified place or not applicable; Y93.9 Activity, unspecified; Y99.9 Unspecified external cause status; E87.0 Hyperosmolality and hypernatremia; D72.829 Elevated white blood cell count, unspecified; J44.9 Chronic obstructive pulmonary disease, unspecified; Z99.81 Dependence on supplemental oxygen; I48.0 Paroxysmal atrial fibrillation; I12.9 Hypertensive chronic kidney disease with stage 1 through stage 4 chronic kidney disease, or unspecified chronic kidney disease; N18.9 Chronic kidney disease, unspecified; Z86.73 Personal history of transient ischemic attack (TIA), and cerebral infarction without residual deficits; N40.0 Benign prostatic hyperplasia without lower urinary tract symptoms; D50.9 Iron deficiency anemia, unspecified; Z85.528 Personal history of other malignant neoplasm of kidney; Z90.5 Acquired absence of kidney; K21.9 Gastro-esophageal reflux disease without esophagitis; L97.929 Non-pressure chronic ulcer of unspecified part of left lower leg with unspecified severity; R53.1 Weakness; Z91.81 History of falling; M16.10 Unilateral primary osteoarthritis, unspecified hip; I95.1 Orthostatic hypotension; Z90.79 Acquired absence of other genital organ(s); Z87.81 Personal history of (healed) traumatic fracture; Z98.890 Other specified postprocedural states; Z82.49 Family history of ischemic heart disease and other diseases of the circulatory system; Z87.891 Personal history of nicotine dependence; F10.90 Alcohol use, unspecified, uncomplicated; R94.31 Abnormal electrocardiogram [ECG] [EKG]; Z79.899 Other long term (current) drug therapy; Z79.01 Long term (current) use of anticoagulants; Z79.82 Long term (current) use of aspirin; Z79.51 Long term (current) use of inhaled steroids; Z88.8 Allergy status to other drugs, medicaments and biological substances

== ENCOUNTER 2024-09-16 12:31 | Inpatient (IN) | payer MEDICARE, OTHER ==
[~2024-09-16] VITALS: Ht 170.2 cm; Wt 76.8 kg
[~2024-09-16 12:31] MED LIST changes: +ATOR1TAB21 PO; +DIGO0.123 PO; +FLUT1BLS8 INH; +TRAM50TA2 PO; +XARE20TA PO
[2024-09-16] MEDS ORDERED: ISOVUE-370 76% 100ML VIAL As Ordered ONE (12:53)
[2024-09-16 13:34] LABS: BASO % 0.1 % (0.0-1.0); EOS % 0.3 % (0.0-3.0); HEMATOCRIT 38.2 % (42.0-52.0); HEMOGLOBIN 11.8 g/dl (13.5-17.5); LYMPH # 0.6 10^3/uL (1.5-5.0); LYMPH % 5.8 % (24.0-44.0); MEAN CORPUSCULAR HEMOGLOBIN 27.4 pg (27.0-33.0); MEAN CORPUSCULAR HGB CONC 30.9 g/dl (32.0-36.5); MEAN CORPUSCULAR VOLUME 88.6 fl (80.0-96.0); MONO # 0.7 10^3/uL (0.0-0.8); MONO % 7.4 % (2.0-8.0); NEUTROPHILS # 8.2 10^3/uL (1.5-8.5); NEUTROPHILS % 85.6 % (36.0-66.0); PLATELET COUNT, AUTOMATED 249 10^3/uL (150-450); RED BLOOD COUNT 4.31 10^6/uL (4.30-6.10); WHITE BLOOD COUNT 9.6 10^3/uL (4.0-10.0)
[2024-09-16 13:46] LABS: INR 1.02; PARTIAL THROMBOPLASTIN TIME 30.1 SECONDS (24.8-34.2); PROTHROMBIN TIME 13.7 SECONDS (12.5-14.5)
[2024-09-16 13:51] VITALS: BP 137/61; O2SAT 96
[2024-09-16 14:02] LABS: ALBUMIN 2.9 G/DL (3.2-5.2); ALKALINE PHOSPHATASE 77 U/L (40-129); ALT/SGPT 10 U/L (7.0-40); AST/SGOT < 8 U/L (<34); BILIRUBIN,DIRECT 0.1 MG/DL (<0.4); BILIRUBIN,TOTAL 0.5 MG/DL (0.3-1.2); BLOOD UREA NITROGEN 14 MG/DL (9-23); CALCIUM LEVEL 8.7 MG/DL (8.3-10.6); CARBON DIOXIDE LEVEL 26 MMOL/L (20-31); CHLORIDE LEVEL 107 MMOL/L (98-107); CK-MB VALUE MASS < 1.0 NG/ML (<3.6); CPK CREATINE PHOSPHOKINASE 20 U/L (46-171); CREATININE FOR GFR 1.06 MG/DL (0.70-1.30); GLOMERULAR FILTRATION RATE > 60.0 (>42); GLUCOSE, FASTING 101 MG/DL (74-106); PHOSPHORUS LEVEL 3.2 MG/DL (2.4-5.1); POTASSIUM SERUM 4.2 MMOL/L (3.5-5.1); SODIUM LEVEL 142 MMOL/L (136-145); TOTAL PROTEIN 5.9 G/DL (5.7-8.2)
[2024-09-16 14:03] LABS: THYROID STIMULATING HORMONE 1.038 uIU/ML (0.55-4.78)
[2024-09-16 14:04] LABS: FREE T4 2.02 NG/DL (0.89-1.76)
[2024-09-16] MEDS ORDERED: DILT1TAB7 PO (16:31)
[2024-09-16] MEDS ORDERED: ATOR1TAB21 PO (16:31)
[2024-09-16] MEDS ORDERED: HOME MED LIST COMPLETE! XX SCH (16:35)
[2024-09-16] MEDS ORDERED: MOM 30ML SUSPENSION UDC PO PRN (16:45)
[2024-09-16] MEDS ORDERED: ACETAMINOPHEN 325 MG TAB PO PRN (16:45)
[2024-09-16] MEDS: IPRATROPIUM 0.5MG/ALBUTEROL 2.5MG INH SOL UD 3ML (DUONEB) NEB PRN (17:30)
[2024-09-16] MEDS ORDERED: PILL CUTTER 1 EACH XX PRN (17:55)
[2024-09-16] MEDS: RIVAROXABAN 20MG TAB (XARELTO) PO SCH (18:04)
[2024-09-16] MEDS: DIGOXIN 0.125 MG TAB PO SCH (20:30)
[2024-09-16] MEDS: ATORVASTATIN 20 MG TAB PO SCH (20:31)
[2024-09-16] MEDS: FINASTERIDE 5MG TAB PO SCH (20:31)
[2024-09-17 06:50] LABS: HEMATOCRIT 35.3 % (42.0-52.0); HEMOGLOBIN 10.8 g/dl (13.5-17.5); MEAN CORPUSCULAR HGB CONC 30.6 g/dl (32.0-36.5); MEAN CORPUSCULAR VOLUME 88.3 fl (80.0-96.0); PLATELET COUNT, AUTOMATED 225 10^3/uL (150-450); WHITE BLOOD COUNT 6.5 10^3/uL (4.0-10.0)
[2024-09-17 07:32] LABS: ALBUMIN 2.4 G/DL (3.2-5.2); ALKALINE PHOSPHATASE 65 U/L (40-129); ALT/SGPT < 9 U/L (7.0-40); AST/SGOT < 8 U/L (<34); BILIRUBIN,TOTAL 0.4 MG/DL (0.3-1.2); BLOOD UREA NITROGEN 14 MG/DL (9-23); CALCIUM LEVEL 8.2 MG/DL (8.3-10.6); CARBON DIOXIDE LEVEL 28 MMOL/L (20-31); CHLORIDE LEVEL 109 MMOL/L (98-107); CHOLESTEROL LEVEL 114 MG/DL (<200); CHOLESTEROL RISK RATIO 3.16 (<5); CREATININE FOR GFR 0.98 MG/DL (0.70-1.30); GLOMERULAR FILTRATION RATE > 60.0 (>42); GLUCOSE, FASTING 89 MG/DL (74-106); LDL CHOLESTEROL 46.8 MG/DL (<100); POTASSIUM SERUM 4.2 MMOL/L (3.5-5.1); SODIUM LEVEL 143 MMOL/L (136-145); TRIGLYCERIDES LEVEL 156 MG/DL (<150)
[2024-09-17] MEDS: FERROUS SULFATE 325MG TAB PO SCH (08:23)
[2024-09-17] MEDS: VITAMIN D 1,000 INTERNATIONAL UNITS TABLET PO SCH (08:23)
[2024-09-17] MEDS: PANTOPRAZOLE 40MG TAB (PROTONIX) PO SCH (08:23)
[2024-09-17] MEDS: dilTIAZem **CD** 180MG CAP PO SCH (08:24)
[2024-09-17] MEDS: CYANOCOBALAMIN 500 MCG TAB PO SCH (08:24)
[2024-09-17 15:02] VITALS: BP 134/58; TEMP 97.5; O2SAT 95
[2024-09-17 20:00] VITALS: BP 124/80; TEMP 97.2; O2SAT 96
[2024-09-18 04:00] VITALS: BP 138/45; TEMP 97.5; O2SAT 98
[2024-09-18] MEDS: traMADol 50 MG TAB PO PRN (08:27)
[2024-09-18 08:50] LABS: HEMATOCRIT 33.8 % (42.0-52.0); HEMOGLOBIN 10.5 g/dl (13.5-17.5); MEAN CORPUSCULAR HEMOGLOBIN 27.7 pg (27.0-33.0); MEAN CORPUSCULAR HGB CONC 31.1 g/dl (32.0-36.5); MEAN CORPUSCULAR VOLUME 89.2 fl (80.0-96.0); PLATELET COUNT, AUTOMATED 220 10^3/uL (150-450); RED BLOOD COUNT 3.79 10^6/uL (4.30-6.10); WHITE BLOOD COUNT 7.3 10^3/uL (4.0-10.0)
[2024-09-18 09:11] LABS: ALBUMIN 2.4 G/DL (3.2-5.2); ALKALINE PHOSPHATASE 64 U/L (40-129); ALT/SGPT < 9 U/L (7.0-40); AST/SGOT < 8 U/L (<34); BILIRUBIN,TOTAL 0.3 MG/DL (0.3-1.2); BLOOD UREA NITROGEN 19 MG/DL (9-23); CALCIUM LEVEL 8.4 MG/DL (8.3-10.6); CARBON DIOXIDE LEVEL 26 MMOL/L (20-31); CHLORIDE LEVEL 111 MMOL/L (98-107); CREATININE FOR GFR 1.07 MG/DL (0.70-1.30); GLOMERULAR FILTRATION RATE > 60.0 (>42); GLUCOSE, FASTING 128 MG/DL (74-106); POTASSIUM SERUM 4.2 MMOL/L (3.5-5.1); SODIUM LEVEL 145 MMOL/L (136-145)
[2024-09-18 09:15] LABS: FOLATE 6.06 NG/ML (>5.4)
[2024-09-18 09:16] LABS: VITAMIN B12 LEVEL 1093 PG/ML (211-911)
[2024-09-18 12:00] VITALS: BP 137/59; TEMP 97.5; O2SAT 94
[2024-09-18 21:08] VITALS: BP 130/63; TEMP 97.3; O2SAT 96
[2024-09-18] MEDS: ATORVASTATIN 20 MG TAB PO SCH (21:09)
[2024-09-19 04:00] VITALS: BP 149/53; TEMP 96.8; O2SAT 93
[2024-09-19 05:41] LABS: HEMATOCRIT 33.9 % (42.0-52.0); HEMOGLOBIN 10.3 g/dl (13.5-17.5); MEAN CORPUSCULAR HEMOGLOBIN 27.2 pg (27.0-33.0); MEAN CORPUSCULAR HGB CONC 30.4 g/dl (32.0-36.5); MEAN CORPUSCULAR VOLUME 89.7 fl (80.0-96.0); PLATELET COUNT, AUTOMATED 207 10^3/uL (150-450); RED BLOOD COUNT 3.78 10^6/uL (4.30-6.10); WHITE BLOOD COUNT 6.9 10^3/uL (4.0-10.0)
[2024-09-19 06:06] LABS: ALBUMIN 2.3 G/DL (3.2-5.2); ALKALINE PHOSPHATASE 63 U/L (40-129); ALT/SGPT 11 U/L (7.0-40); AST/SGOT < 8 U/L (<34); BILIRUBIN,TOTAL 0.3 MG/DL (0.3-1.2); BLOOD UREA NITROGEN 17 MG/DL (9-23); CALCIUM LEVEL 8.1 MG/DL (8.3-10.6); CARBON DIOXIDE LEVEL 29 MMOL/L (20-31); CHLORIDE LEVEL 108 MMOL/L (98-107); CREATININE FOR GFR 0.95 MG/DL (0.70-1.30); GLOMERULAR FILTRATION RATE > 60.0 (>42); GLUCOSE, FASTING 117 MG/DL (74-106); POTASSIUM SERUM 4.5 MMOL/L (3.5-5.1); SODIUM LEVEL 142 MMOL/L (136-145); TOTAL PROTEIN 4.9 G/DL (5.7-8.2)
[2024-09-19] MEDS ORDERED: PROHANCE 279.3MG/ML 15ML VIAL As Ordered ONE (11:23)
[2024-09-19 12:00] VITALS: BP 140/63; TEMP 97.8; O2SAT 96
[2024-09-19 20:13] VITALS: BP 139/63; TEMP 97.9; O2SAT 96
[2024-09-20] VITALS (8 sets, daily range): BP systolic 127–151; BP diastolic 43–70; TEMP 97–97.7; O2SAT 93–97
[2024-09-20 06:26] LABS: HEMATOCRIT 35.2 % (42.0-52.0); HEMOGLOBIN 10.7 g/dl (13.5-17.5); MEAN CORPUSCULAR HEMOGLOBIN 27.3 pg (27.0-33.0); MEAN CORPUSCULAR HGB CONC 30.4 g/dl (32.0-36.5); MEAN CORPUSCULAR VOLUME 89.8 fl (80.0-96.0); PLATELET COUNT, AUTOMATED 201 10^3/uL (150-450); RED BLOOD COUNT 3.92 10^6/uL (4.30-6.10); WHITE BLOOD COUNT 7.2 10^3/uL (4.0-10.0)
[2024-09-20 06:52] LABS: ALBUMIN 2.5 G/DL (3.2-5.2); ALKALINE PHOSPHATASE 71 U/L (40-129); ALT/SGPT 9 U/L (7.0-40); AST/SGOT < 8 U/L (<34); BILIRUBIN,TOTAL 0.5 MG/DL (0.3-1.2); BLOOD UREA NITROGEN 10 MG/DL (9-23); CALCIUM LEVEL 8.4 MG/DL (8.3-10.6); CARBON DIOXIDE LEVEL 27 MMOL/L (20-31); CHLORIDE LEVEL 106 MMOL/L (98-107); CREATININE FOR GFR 0.81 MG/DL (0.70-1.30); GLOMERULAR FILTRATION RATE > 60.0 (>42); GLUCOSE, FASTING 101 MG/DL (74-106); POTASSIUM SERUM 4.4 MMOL/L (3.5-5.1); SODIUM LEVEL 142 MMOL/L (136-145); TOTAL PROTEIN 5.1 G/DL (5.7-8.2)
[2024-09-20] MEDS ORDERED: NS (Normal Saline) 0.9% 1,000 ML IV SCH (11:30)
[2024-09-20] MEDS ORDERED: PERCOCET 5MG/325MG TAB PO PRN (13:25)
[2024-09-20] MEDS: LIDOCAINE 1% MDV 20ML VIAL SC ONE (13:26)
[2024-09-20] MEDS: fentaNYL 100 MCG/2 ML INJECTION IV PRN (13:26)
[2024-09-20] MEDS: MIDAZOLAM INJ 2MG/2ML VIAL IV PRN (13:26)
[2024-09-21 01:06] VITALS: O2SAT 90
[2024-09-21 04:00] VITALS: BP 127/47; TEMP 97.1; O2SAT 94
[2024-09-21 05:25] LABS: HEMATOCRIT 32.9 % (42.0-52.0); HEMOGLOBIN 10.3 g/dl (13.5-17.5); MEAN CORPUSCULAR HEMOGLOBIN 27.9 pg (27.0-33.0); MEAN CORPUSCULAR HGB CONC 31.3 g/dl (32.0-36.5); MEAN CORPUSCULAR VOLUME 89.2 fl (80.0-96.0); PLATELET COUNT, AUTOMATED 180 10^3/uL (150-450); RED BLOOD COUNT 3.69 10^6/uL (4.30-6.10); WHITE BLOOD COUNT 6.1 10^3/uL (4.0-10.0)
[2024-09-21 05:56] LABS: ALBUMIN 2.2 G/DL (3.2-5.2); ALKALINE PHOSPHATASE 64 U/L (40-129); ALT/SGPT < 9 U/L (7.0-40); AST/SGOT < 8 U/L (<34); BILIRUBIN,TOTAL 0.4 MG/DL (0.3-1.2); BLOOD UREA NITROGEN 13 MG/DL (9-23); CALCIUM LEVEL 8.3 MG/DL (8.3-10.6); CARBON DIOXIDE LEVEL 25 MMOL/L (20-31); CHLORIDE LEVEL 108 MMOL/L (98-107); CREATININE FOR GFR 0.88 MG/DL (0.70-1.30); GLOMERULAR FILTRATION RATE > 60.0 (>42); GLUCOSE, FASTING 100 MG/DL (74-106); POTASSIUM SERUM 4.5 MMOL/L (3.5-5.1); SODIUM LEVEL 143 MMOL/L (136-145); TOTAL PROTEIN 4.8 G/DL (5.7-8.2)
[2024-09-21 11:55] VITALS: BP 142/58; TEMP 97.3; O2SAT 99
[2024-09-21] MEDS: RIVAROXABAN 20MG TAB (XARELTO) PO SCH (17:19)
[2024-09-21 20:00] VITALS: BP 142/49; TEMP 97.7; O2SAT 93
[2024-09-22 04:00] VITALS: BP 142/53; TEMP 97.2; O2SAT 100
[2024-09-22 06:32] LABS: HEMATOCRIT 33.1 % (42.0-52.0); HEMOGLOBIN 10.3 g/dl (13.5-17.5); MEAN CORPUSCULAR HEMOGLOBIN 27.4 pg (27.0-33.0); MEAN CORPUSCULAR HGB CONC 31.1 g/dl (32.0-36.5); PLATELET COUNT, AUTOMATED 212 10^3/uL (150-450); RED BLOOD COUNT 3.76 10^6/uL (4.30-6.10); WHITE BLOOD COUNT 6.4 10^3/uL (4.0-10.0)
[2024-09-22 06:55] LABS: ALBUMIN 2.1 G/DL (3.2-5.2); ALKALINE PHOSPHATASE 64 U/L (40-129); ALT/SGPT 10 U/L (7.0-40); AST/SGOT < 8 U/L (<34); BILIRUBIN,TOTAL 0.4 MG/DL (0.3-1.2); BLOOD UREA NITROGEN 14 MG/DL (9-23); CARBON DIOXIDE LEVEL 28 MMOL/L (20-31); CHLORIDE LEVEL 108 MMOL/L (98-107); CREATININE FOR GFR 0.83 MG/DL (0.70-1.30); GLOMERULAR FILTRATION RATE > 60.0 (>42); GLUCOSE, FASTING 105 MG/DL (74-106); POTASSIUM SERUM 4.2 MMOL/L (3.5-5.1); SODIUM LEVEL 142 MMOL/L (136-145); TOTAL PROTEIN 4.8 G/DL (5.7-8.2)
[2024-09-22 07:56] LABS: T P ELECTROPHORESIS SO 4.7 g/dL (6.1-8.1)
[2024-09-22 08:50] VITALS: BP 139/58
[2024-09-22] MEDS ORDERED: ACET32TAB PO (13:55)
[2024-09-22] MEDS ORDERED: ATOR80TA59 PO (13:55)
[2024-09-25 08:17] LABS: ALBUMIN SPEP 2.5 g/dL (3.8-4.8); ALPHA-1-GLOBULINS SO 0.4 g/dL (0.2-0.3); ALPHA-2-GLOBULINS SO 0.8 g/dL (0.5-0.9); BETA 2 GLOBULIN 0.3 g/dL (0.2-0.5); BETA-GLOBULIN SO 0.4 g/dL (0.4-0.6); GAMMA GLOBULINS SO 0.3 g/dL (0.8-1.7)
== END 2024-09-22 16:29 | disposition home health service (06) | DRG 65 ==
LOC: M ED 12:31 → EDBD 12:31 → M ED INP 16:43 → M MSPAV 09-17 15:02
PROVIDERS: ADMIT Student in an Organized Health Care Education/Training Program; ATTEND Internal Medicine
PROC: B246ZZZ Ultrasonography of Right and Left Heart (ICD-10-PCS; principal; 2024-09-17)
PROC: 0GB33ZX Excision of Right Adrenal Gland, Percutaneous Approach, Diagnostic (ICD-10-PCS; 2024-09-20)
DX: I63.531 Cerebral infarction due to unspecified occlusion or stenosis of right posterior cerebral artery (principal); C79.51 Secondary malignant neoplasm of bone; C79.71 Secondary malignant neoplasm of right adrenal gland; J96.11 Chronic respiratory failure with hypoxia; G81.91 Hemiplegia, unspecified affecting right dominant side; K21.9 Gastro-esophageal reflux disease without esophagitis; J44.9 Chronic obstructive pulmonary disease, unspecified; I25.10 Atherosclerotic heart disease of native coronary artery without angina pectoris; E78.5 Hyperlipidemia, unspecified; I10 Essential (primary) hypertension; M47.812 Spondylosis without myelopathy or radiculopathy, cervical region; M19.90 Unspecified osteoarthritis, unspecified site; I48.0 Paroxysmal atrial fibrillation; Z85.528 Personal history of other malignant neoplasm of kidney; Z99.81 Dependence on supplemental oxygen; Z79.01 Long term (current) use of anticoagulants; Z79.899 Other long term (current) drug therapy; Z88.8 Allergy status to other drugs, medicaments and biological substances

== ENCOUNTER → 2024-10-08 | Outpatient (CLI) | payer MEDICARE, OTHER ==
[~2024-10-08] MED LIST changes: +ACET32TAB PO; +ATOR80TA59 PO; +DILT1TAB7 PO
== END ==
LOC: M PLARAD 12:50
PROVIDERS: ATTEND General Practice
DX: C64.1 Malignant neoplasm of right kidney, except renal pelvis (principal)
CPT/HCPCS: 78815; A9552

== ENCOUNTER 2024-11-09 22:55 | Observation (INO) | payer MEDICARE, OTHER ==
[~2024-11-09] VITALS: Ht 167.6 cm; Wt 63.6 kg
[~2024-11-09 22:55] MED LIST changes: +ALBU1.25 NEB; +ATOR40TA75
[2024-11-10] MEDS: HYDROmorphone 2 MG TAB PO ONE (03:45)
[2024-11-10] MEDS ORDERED: HYDROMORPHONE HCL 0.5 MG/ 0.5 ML SYRINGE IV PRN (04:20)
[2024-11-10] MEDS: HYDROMORPHONE HCL 0.5 MG/ 0.5 ML SYRINGE IV PRN (04:43)
[2024-11-10] MEDS ORDERED: LORazepam 2 MG/ML 1ML VIAL IV PRN ×2 (06:25→09:30)
[2024-11-10] MEDS ORDERED: ONDANSETRON 4MG 2ML VIAL IV PRN (06:25)
[2024-11-10] MEDS ORDERED: SCOPOLAMINE 1MG TRANSDERMAL PATCH TOP PRN (06:25)
[2024-11-10] MEDS ORDERED: ACETAMINOPHEN 325 MG TAB PO PRN (06:25)
[2024-11-10 08:22] VITALS: BP 134/63; TEMP 98.1; O2SAT 96
[2024-11-10] MEDS: MORPHINE 2 MG/ML 1ML VIAL IV PRN (09:22)
[2024-11-10] MEDS ORDERED: LORazepam 1 MG TAB PO PRN (09:30)
[2024-11-10] MEDS ORDERED: MORPHINE 2 MG/ML 1ML VIAL IV PRN (09:30)
[2024-11-10] MEDS: MORPHINE 10MG/0.5ML ORAL CONCENTRATE SOLUTION U/D SL PRN (12:40)
[2024-11-10] MEDS: traZODone 25MG PER 1/2 TABLET PO SCH (21:14)
[2024-11-11] MEDS: IPRATROPIUM 0.5MG/ALBUTEROL 2.5MG INH SOL UD 3ML NEB PRN (09:43)
[2024-11-13] MEDS: RAMELTEON 8 MG TAB PO SCH (20:09)
[2024-11-14] MEDS ORDERED: MORP1SOL5 PO (07:08)
[2024-11-14] MEDS ORDERED: ATRO2DRO4 PO (07:08)
[2024-11-14] MEDS ORDERED: ATIV1TAB10 PO (07:08)
[2024-11-14] MEDS ORDERED: TRAN1DIS4 TOP (07:08)
[2024-11-14] MEDS ORDERED: SENN-212 PO (07:17)
[2024-11-14] MEDS ORDERED: MIRA3350 PO (07:17)
[2024-11-14] MEDS: MIRALAX *UNIT DOSE* 17GM PACKET PO SCH (09:20)
[2024-11-14] MEDS: SENOKOT S TAB PO SCH (09:20)
[2024-11-14] MEDS ORDERED: HYOS125TA PO (09:41)
== END 2024-11-14 09:10 | disposition hospice, inpatient (51) ==
LOC: M ED 22:55 → M ED INP 22:56 → M MSPAV 11-10 09:19
PROVIDERS: ADMIT Student in an Organized Health Care Education/Training Program; ATTEND Student in an Organized Health Care Education/Training Program
DX: C64.9 Malignant neoplasm of unspecified kidney, except renal pelvis (principal); Z51.5 Encounter for palliative care; I21.9 Acute myocardial infarction, unspecified; C79.51 Secondary malignant neoplasm of bone; I10 Essential (primary) hypertension; Z86.73 Personal history of transient ischemic attack (TIA), and cerebral infarction without residual deficits; I25.2 Old myocardial infarction; Z95.5 Presence of coronary angioplasty implant and graft; E78.5 Hyperlipidemia, unspecified; I48.91 Unspecified atrial fibrillation; Z86.718 Personal history of other venous thrombosis and embolism; J44.9 Chronic obstructive pulmonary disease, unspecified; Z90.5 Acquired absence of kidney; Z90.79 Acquired absence of other genital organ(s); Z87.891 Personal history of nicotine dependence; Z88.8 Allergy status to other drugs, medicaments and biological substances; Z66 Do not resuscitate
CPT/HCPCS: 94640; 96374; 96375; 99284; G0378; J1171